=== PATIENT | female | born 1975 | race Caucasian/White ===

== ENCOUNTER 2025-01-01 14:01 | Emergency (ER) | payer MEDICAID, SELFPAY ==
--- OUTSIDE RECORDS SUMMARY | 2024-10-22 08:00 | XMS_ITS ---
Author Organization [facility] Address [address] [place] [address] Care Team Providers Care It Security Consulting Director Name Role Phone Claudette Gaffney Primary Care Provider REASON FOR VISIT CA due to error Social History Sex Assigned At : Social History Observation Description Sex Assigned At Female Encounters Encounter Location Date Provider Diagnosis [address] [address] 10/22/2024 Claudette Gaffney Plan Of Treatment No Information Progress Notes * Chilo LAMASRudyOB: 6 (49 yo F)Acc No.[id number]:10/22/2024 UNLOCKED PROGRESS NOTE Patient: Ashlee MACHADO Provider: LUCIE Loredo :1975 A ge:49 Y S ex:Female Date:10/22/2024 Phone: [facility] Subjective: * Chief Complaints: * 1 . CA due to error. * Medical History: Objective: * Vitals: Assessment: Plan: * Treatment: * * Electronic signature of Suzette Gaffney on 01/01/2025 at 03:09 PM CDT Sign off status: Pending * Provider: LUCIE Loredo Date: 10/22/2024 Generated for Printi ng/Faxing/eTransmitting on: 0 01/01/2025 03:09 PM CDT
--- OUTSIDE RECORDS SUMMARY | 2024-12-11 04:00 | XMS_ITS ---
Author Organization [facility] Address [address] [place] [address] Care Team Providers Care Weather Analyst Name Role Phone Claudette Gafnfey Primary Care Provider Dao Cabezas Unavailable [phone] REASON FOR VISIT New patient Social History Sex Assigned At : Social History Observation Description Sex Assigned At Female Encounters Encounter Location Date Provider Diagnosis [address] [address] 12/11/2024 Dao Cabezas Plan Of Treatment No Information Progress Notes * Nichole LAMASOB: 6 (49 yo F)Acc No.[id number]:12/11/2024 UNLOCKED PROGRESS NOTE Progress Notes Patient: Ashlee MACHADO Provider: Susie Cabezas :1975 A ge:49 Y S ex:Female Date:12/11/2024 Phone: [facility] Pcp:Claudette Gaffney Subjective: * Chief Complaints: * 1 . New patient. * Medical History: Objective: * Vitals: Assessment: Plan: * Treatment: * * Electronic signature of Lyssa Cabezas , [id number] on 01/01/2025 at 03:09 PM CDT Sign off status: Pending * Provider: Susie Cabezas Date: 12/11/2024 Generated for Betsyi ng/Faxing/eTransmitting on: 01/01/2025 03:09 PM CDT
--- NOTE | ~2025-01-01 | XR_ITS ---
EXAMINATION: XR shoulder LT min 2V DATE: 01/01/2025 16:23 INDICATION: Left shoulder pain TECHNIQUE: 4 views of the left shoulder were obtained. COMPARISON: None FINDINGS: Normal alignment. No fracture.Mild left glenohumeral and acromioclavicular osteoarthritis. Normal subacromial spurs. Visualized portion of the lungs are clear. Soft tissues are unremarkable. IMPRESSION: Mild left glenohumeral and acromioclavicular osteoarthritis. No acute osseous abnormality. Reviewed, dictated and finalized at location A. IMPRESSION: Mild left glenohumeral and acromioclavicular osteoarthritis. No acute osseous a bnormality.
--- NOTE | ~2025-01-01 | XR_ITS ---
Clinical history:Shoulder/arm pain. Unknown trauma. EXAM:X-ray humerus left TECHNIQUE:2 images of the left humerus were obtained. Comparisons:None available FINDINGS: No displaced fracture identified in the left humerus. If concern for a bony abnormality about the left elbow or left shoulder, dedicated x-rays of the left shoulder and/or left elbow is recommended. No sclerotic or destructive bone lesion identified in the visualized left humerus. IMPRESSION: 1. No displaced fracture identified in the left humerus. If symptoms persist or worsen, consider a short-term follow-up study or additional imaging for further assessment. Findings as above. Reviewed, dictated and finalized at location Q. IMPRESSION: 1. No displaced fracture identified in the left humerus. If symptoms persist or worsen, consider a short-term follow-up study or additio nal imaging for further assessment. Findings as above.
[2025-01-01 13:58] VITALS: BP 166/97; PULSE 61; RESP 12; TEMP 36.7; O2SAT 100
[2025-01-01 14:12] VITALS: BP 166/97; PULSE 56; RESP 12; TEMP 36.7; O2SAT 100
--- NOTE | 2025-01-01 14:38 | ED.FEMALEGU ---
HPI - Female Genitourinary General Chief complaint: Vaginal Bleeding Stated complaint: vag bleed Time Seen by Provider: 01/01/25 14:25 Source: patient Mode of arrival: EMS Limitations: no limitations History of Present Illness HPI Narrative: This is a 49-year-old female with history of paraplegia due to postop complication from a knee surgery (?) And subsequent cervical spine infection who presents to the ED for vaginal bleeding. Patient states that she started her period today for the 1st time in 5 months and had a much heavier for vaginal bleeding she normally does. She denies lightheadedness, dizziness, nausea, vomiting, abdominal pain. She states that she is being treated for UTI right now and has a few days left of antibiotics. She does have an indwelling Ng in. Related Data Allergies Allergy/AdvReac Type Severity Reaction Status Date / Time Penicillins Allergy Mild Hives Verified 01/01/25 14:13 Review of Systems Review of Systems: Gen.: Denies fevers or chills Eyes: Denies eye pain or visual change ENT: Denies congestion Respiratory: Denies shortness of breath or cough CV: Denies chest pain or palpitations GI: Denies abdominal pain nausea, emesis or diarrhea as per HPI Musculoskeletal: Denies back pain or muscle pain Neuro: Denies numbness, tingling, weakness or focal weakness Skin: Denies rash Except as documented, all other systems reviewed and negative Exam Narrative: APPEARANCE: No acute distress, nontoxic, resting in bed EYES: EOMI HEENT: Normocephalic, atraumatic, OMM RESPIRATORY: No respiratory distress Clear to auscultation bilaterally with no rhonchi wheezing or rales. CARDIOVASCULAR: Regular rate and rhythm without murmurs rubs or gallops. ABDOMINAL: Soft, nontender, nondistended, no rebound or guarding. : Indwelling Ng catheter without surrounding drainage MUSCULOSKELETAl: Paraplegic, 3/5 strength to the left upper extremity. No clubbing, cyanosis or edema. NEURO: Awake and alert. Following commands, speech normal. Paraplegia SKIN:: Warm, dry. No rashes lesions or abrasions PSYCHIATRIC: Normal affect/mood, Course Vital Signs Vital signs: Vital Signs Temperature 98.0 F 01/01/25 13:58 Pulse Rate 61 01/01/25 13:58 Respiratory Rate 12 01/01/25 13:58 Blood Pressure 166/97 H 01/01/25 13:58 Pulse Oximetry 100 01/01/25 13:58 Oxygen Delivery Room Air 01/01/25 13:58 Temperature 98.0 F 01/01/25 14:12 Pulse Rate 66 01/01/25 18:42 Respiratory Rate 14 01/01/25 18:42 Blood Pressure 140/78 01/01/25 18:42 Pulse Oximetry 100 01/01/25 18:42 Oxygen Delivery Room Air 01/01/25 13:58 MDM - Female Genitourinary MDM Narrative Medical decision making narrative: 49-year-old female presenting for vaginal bleeding. On initial evaluation, patient was in no acute distress, afebrile, hemodynamically stable. She had her stable paraplegia. Abdomen was soft nontender. UA obtained which showed no evidence of UTI. She had a mild anemia at 10.1. Remaining labs without significant abnormalities. Patient did complain of shoulder pain that she thinks may have been related to 1 of the transfers from bed to bed in the past few months. 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 Suspect the patient's vaginal bleeding is due to her secondary amenorrhea due to her stress inducing past few months from her postop complications. Believe she is now having a subsequent heavier menses due to this. She is otherwise asymptomatic at this time. She was advised to follow-up with her account executive metalworking in the next week for re-evaluation. Patient was agreeable to this plan. Given strict return precautions. Differential Diagnosis Differential diagnosis: Likely other (Menstrual period, dysmenorrhea, menorrhagia, UTI) Medical Records Attestation: I reviewed the patient's medical records. Lab Data Attestation: I reviewed the patient's lab results. 01/01/25 14:36 01/01/25 14:36 Labs: Lab Results 01/01/25 01/01/25 Range/Units 14:36 15:41 WBC 4.5 (4.5-10.0) K/mm3 RBC 3.52 L (4.2-5.4) M/mm3 Hgb 10.1 L (12.0-15.0) g/dL Hct 31.2 L (37.0-47.0) % MCV 88.6 (80-100) fl MCH 28.7 (26-34) pg MCHC 32.4 (32-36) g/dl RDW 13.6 (11.5-14.5) % Plt Count 246 (150-375) k/mm3 MPV 8.0 (7.4-10.4) fl Immature Gran % (Auto) 0.2 (0-0.5) % Neut % (Auto) 52.2 (45.5-73.1) % Lymph % (Auto) 38.3 (18.3-44.2) % [place] % (Auto) 5.3 (2.6-8.5) % Eos % (Auto) 3.1 (0-4.4) % Baso % (Auto) 0.9 (0.2-1.2) % Lymph # (Auto) 1.73 (0.9-3.2) K/mm3 [place] # (Auto) 0.2 (0.1-0.6) K/mm3 Eos # (Auto) 0.1 (0-0.3) K/mm3 Baso # (Auto) 0.0 (0.0-0.1) K/mm3 Abs Immat Gran (auto) 0.01 (0.00-0.031) K/mm3 Absolute Neuts (auto) 2.4 (1.3-6.7) K/mm3 Absolute Nucleated RBC 0.000 (0.0-0.012) K/mm3 Nucleated RBC % 0.0 (0.0-0.2) % Sodium 136 L (137-145) mmol/L Potassium 4.2 (3.4-5.0) mmol/L Chloride 104 (98-107) mmol/L Carbon Dioxide 25 (22-30) mmol/L Anion Gap 7 (4-12) mmol/L BUN 19 H (7-17) mg/dL Creatinine 0.39 L (0.7-1.0) mg/dL Estim Creat Clear Calc 165 ml/min Estimated GFR > 60 (59 - ) Glucose 90 (65-110) mg/dL Calcium 9.1 (8.4-10.2) mg/dL Total Bilirubin 0.4 (0.2-1.3) mg/dL AST 25 (14-36) U/L ALT 12 (6-35) U/L Alkaline Phosphatase 97 (38-126) U/L Total Protein 8.0 (6.3-8.2) g/dL Albumin 3.8 (3.5-5.1) g/dL Urine Color Yellow (Yellow) Urine Appearance Clear (Clear) Urine pH 6.5 (5.0-9.0) Ur Specific [place] 1.006 (1.001-1.035) Urine Protein Negative (Negative) mg/dL Urine Glucose (UA) Negative (Negative) mg/dL Urine Ketones Negative (Negative) mg/dL Ur Blood (Man) 1+ H (Negative) Urine Nitrate Negative (Negative) Urine Bilirubin Negative (Negative) Urine Urobilinogen 0.2 (<2.0) mg/dL Leukocyte Esterase Rfl 2+ H (Negative) ABBY/UL Urine RBC 0-2 (0-2) /hpf Urine WBC 11-20 H (0-3) /hpf Ur Squamous Epith Cells None seen (Few) /hpf Urine Bacteria None seen /hpf Urine Casts 0-2 Urine Test Negative Discharge Plan Discharge Clinical Impression: Menorrhagia with irregular cycle Patient Disposition: Home Condition: Stable Instructions: Antibiotic Form, Menorrhagia (ED) Additional Instructions: Your blood work was reassuring your hemoglobin is little low but not low enough to require transfusion. I suspect that your increased vaginal bleeding today is due to the fact he had not had a period in several months. Continue to monitor the MModal has never needed to be changed. Follow-up with your PCP in the next week for re-evaluation. Return to ED for any new or worsening symptoms. Patient Language: Danish Follow-up/Referrals: Kenny Pan MD [Physician, LANDSCAPE AND [employer]ARDWORK LABORER] UNKNOWN,DOCTOR [Primary Care Provider]
[2025-01-01 14:42] LABS: Hematocrit 31.2 % (37.0-47.0); Hemoglobin 10.1 g/dL (12.0-15.0); Immature Granulocyte Percent A 0.2 % (0-0.5); Lymphocytes Absolute Auto 1.73 K/mm3 (0.9-3.2); Mean Corpuscular HGB Conc 32.4 g/dl (32-36); Mean Corpuscular Hemoglobin 28.7 pg (26-34); Mean Corpuscular Volume 88.6 fl (80-100); Nucleated Red Blood Cells Absolute Auto 0.000 K/mm3 (0.0-0.012); Nucleated Red Blood Cells Perc 0.0 % (0.0-0.2); Platelet Count Result 246 k/mm3 (150-375); Red Blood Count 3.52 M/mm3 (4.2-5.4); White Blood Count 4.5 K/mm3 (4.5-10.0)
[2025-01-01 14:52] LABS: Alanine Aminotransferase 12 U/L (6-35); Albumin Level 3.8 g/dL (3.5-5.1); Alkaline Phosphatase 97 U/L (38-126); Anion Gap 7 mmol/L (4-12); Aspartate Amino Transferase 25 U/L (14-36); Bilirubin,Total 0.4 mg/dL (0.2-1.3); Blood Urea Nitrogen 19 mg/dL (7-17); Calcium 9.1 mg/dL (8.4-10.2); Carbon Dioxide 25 mmol/L (22-30); Chloride 104 mmol/L (98-107); Estimated CRCL calculation 165 ml/min; Estimated Glomerular Filt Rate > 60; Glucose 90 mg/dL (65-110); Potassium 4.2 mmol/L (3.4-5.0); Sodium 136 mmol/L (137-145); Total Protein 8.0 g/dL (6.3-8.2)
[2025-01-01] MEDS: oxyCODONE HCL (*CRX) 5 MG TAB IR PO (14:53)
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
--- OUTSIDE RECORDS SUMMARY | 2025-01-01 15:10 | XMS_ITS | Clinical Summary ---
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 Medications metFORMIN (GLUCOPHAGE) 1,000 mg tablet Take 1,000 mg by mouth 2 times daily with meals. Active aspirin (ECOTRIN EC) 81 mg Tablet, Delayed Release (E.C.) Take 81 mg by mouth daily. Active diazePAM (VALIUM) 5 mg tabletIndications :Discitis of cervical region Take 1 Tablet (5 mg) by mouth 1 time daily as needed for Discomfort or Other (See Comment) (Muscle Spasm). 5 Active DULoxetine (CYMBALTA) 30 mg Capsule, Delayed Release(E.C.) Take 1 Capsule (30 mg) by mouth daily. 5 Active midodrine (PROAMATINE) 10 mg Tablet Take 1 Tablet (10 mg) by mouth every 8 hours. 5 Active oxyCODONE (ROXICODONE) 15 mg tabletIndications :Discitis of cervical region Take 1 Tablet (15 mg) by mouth every 4 hours as needed for Pain. Max Daily Amount: 90 mg 5 Active pregabalin (LYRICA) 25 mg Capsule Take 1 Capsule (25 mg) by mouth every 12 hours. 5 Active gabapentin (NEURONTIN) 300 mg capsule Take 2 Capsules (600 mg) by mouth every 8 hours. Active cyclobenzaprine (FLEXERIL) 10 mg tablet Take 1 Tablet (10 mg) by mouth 3 times daily. Active sodium chloride 7 % Solution for Nebulization Take 2.5 mL by inhalation 4 times daily. Active ipratropium-albut Frandy (DUONEB) 0.5 mg-3 mg(2.5 mg base)/3 mL Solution for Nebulization Take 3 mL by inhalation every 4 hours as needed for Shortness of Breath or Wheezing. 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 Neurogenic bladder 08/09/2024 Allergy to amoxicillin 08/09/2024 Quadriparesis 08/08/2024 Streptococcal bacteremia 08/08/2024 Streptococcal arthritis of left knee 08/08/2024 Type 2 diabetes mellitus wit h foot ulcer, without long-term current use of insulin 08/08/2024 TASIA (acute kidney injury) 08/08/2024 Encounters Date Type Department Care Team Description 12/04/2024 External Device Data [facility] Provider, Abstract 12/04/2024 External Device Data [facility] Provider, Abstract 11/30/2024 [facility] Neurosurgery - [facility] [address] [place] [address] Bigg Hardy MD Needs Appointment 11/21/2024 External Device Data [facility] Provider, Abstract 11/20/2024 External Device Data [facility] Provider, Abstract 11/07/2024 External Device Data [facility] Provider, Abstract 11/06/2024 External Device Data [facility] Provider, Abstract 10/17/2024 External Device Data [facility] Provider, Abstract 10/17/2024 External Device Data [facility] Provider, Abstract 10/17/2024 External Device Data [facility] Provider, Abstract 10/17/2024 External Device Data [facility] Provider, Abstract 10/16/2024 External Device Data [facility] Provider, Abstract from Last 3 Months Social History Tobacco Use Types Packs/Day Years Used Date Smoking Tobacco: Unknown Tobacco Cessation:Counseling Given: Not Answered Feeling Safe Answer Date Recorded Are you in a relationship wi th someone who hurts you emotionally and/or physically? No 08/10/2024 Food Insecurity Answer Date Recorded Patient needs follow up regardin 08/08/2024 Transportation Needs Answer Date Record ed Patient needs follow up regardin 08/08/2024 Utility Needs Answer Date Recorded Patient needs follow up regardin 08/08/2024 Comments Unknown Sex and Gender Information Value Date Recorded Sex Assigned at Not on file Legal Sex Female 11:11 PM CDT Gender Identity Not on file Sexual Orientation Not on file Last Filed Vital Signs Vital Sign Reading Time Taken Comments Blood Pressure 98/63 08/23/2024 1:10 PM CDT Pulse 78 08/23/2024 2:06 PM CDT Temperature 36.5 C (97.7 F) 08/23/2024 1:10 PM CDT Respiratory Rate 18 08/23/2024 2:06 PM CDT Oxygen Saturation 97% 08/23/2024 1:10 PM CDT Inhaled Oxygen Concentration - - Weight 102.2 kg (225 lb 6.4 oz) 08/14/2024 5:00 AM CDT Height 170.2 cm (5' 7) 08/08/2024 3:59 PM CDT Body Mass Index 35.3 08/08/2024 3:59 PM CDT Plan of Treatment Upcoming Encounters Date Type Department Care Team (Late st Contact Info) Description 02/13/2025 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 Office Visit [facility] Neurosurgery - [facility] [place] [address] [place] [address] Bigg Hardy MD [address] [facility] [address] [place] [address] Health Maintenance Due Date Last Done Comments DIABETES ANNUAL FOOT EXAM 01/14/1994 DIABETES ANNUAL RETINAL EXAM 01/14/1994 DIABETES MICROALBUMIN ANNUAL SCREEN 01/14/1994 LDL CHOLESTEROL ANNUAL 01/14/1994 HEPATITIS B VACCINES (1 of 3 - 19+ 3-dose series) 01/02 HPV/Cotest (21-29) 01/14/1997 CERVICAL CANCER SCREENING 01/14/2006 HPV/Cotest (30-65) 01/14/2006 PAP SMEAR 01/14/2006 BREAST CANCER SCREENING 2016 DIABETES HBA1C Q 6 MONTHS 06/13/2016 12/15/2015 COLORECTAL SCREENING 01/14/2021 Colorectal Cancer Screening 01/14/2021 FIT-DNA Q 3 years 01/14/2021 FIT/FOBT Q 1 year 01/14/2021 Flex Sig/CT Colonography Q 5 years 01/14/2021 INFLUENZA VACCINE (#1) 2024 DTAP/TDAP/TD VACCINES (2 - Td or Tdap) 08/17/2025 Medical Devices Implanted Type Area Product Development Device Identifier Shelf Expiration Date Model / Serial / Lot Hemostatic Surgicel 6x9in 1944 [id number] Implanted:Qty : 1 on 08/10/2024 by Bigg Hardy MD at [facility] Hemostatic N/A: Spine Cervical Posterior [employer] [id number] 10/01/20281945 / / [id number] Hemostatic Surgifoam [id number] Implanted:Qty : 1 on 08/10/2024 by Bigg Hardy MD at [facility] Hemostatic N/A: Spine Cervical Posterior [employer] [id number] 06/04/20281973 / / [id number] Insurance [place]ICAID [place] Advance Directives For more information, please contact: [phone] * Full Code (Latest Code Status on File) Date Activated Date Inactivated Comments 08/08/2024 5:38 PM 08/23/2024 9:35 PM
--- OUTSIDE RECORDS SUMMARY | 2025-01-01 15:10 | XMS_ITS | Clinical Summary ---
Author Organization [facility] Virtual Address [address] [place] [address] Phone Care Team Providers Care Flame Brazing Machine Operator Name Role Phone Dao Cabezas MD Primary Care Provider [phone] Farida Brand APRN, RECORDS TECH Unavailable Allergies Active Allergy Reactions Criticality Noted Date Comments Amoxicillin Hives 08/24/2024 Penicillins Hives 08/24/2024 Medications acetaminophen (TYLENOL) 325 MG TabletIndications: Fever,Pain Take 2 Tablets by mouth every 4 hours as needed for Mild or more severe pain, Moderate or more severe pain or Severe pain. Indications: Fever, Pain 025 Active calcium carbonate (TUMS) 500 MG Chewable TabletIndications: Heartburn Take 2 Tablets by mouth every 8 hours as needed for Heartburn or Indigestion. Indications: Heartburn 025 Active Lidocaine 4 % PatchIndications:P ain 2 Patches by Transdermal route every 24 hours. Indications: Pain 025 Active menthol-methyl salicylate (MUSCLE RUB) 10-15 % CreamIndications:P ain Apply 2 g as needed for Pain. Application Site: bilateral shoulders Indications: Pain 025 Active bisacodyl 10 MG SuppositoryIndicat ions:Bowel Evacuation 1 Suppository by Rectal route daily. Indications: Evacuation of Material from the Bowel 30 Suppository Active polyethylene glycol (GLYCOLAX, MIRALAX) 17 g PackIndications:Co nstipation Take 1 Packet by mouth daily. Dissolve in 4-8 oz of liquid. Indications: Constipation Active oxyCODONE (ROXICODONE) 5 MG TabletIndications: Acute Pain Take 1 Tablet by mouth 2 times daily as needed for Severe pain. Indications: Acute Pain 12 Tablet Active Additional Information Patient not taking.Reason: defer to PCP to prescribe if appropriate, Reported on 10/26/2024 enoxaparin (LOVENOX) 40 MG/0.4ML Solution Prefilled SyringeIndications :Prophylaxis of Venous Thromboembolism 0.4 mL by Subcutaneous route every 24 hours. Indications: Prevention of Unwanted Clot in Veins 12 mL Active naloxegol (MOVANTIK) 12.5 MG TabletIndications: Opioid-Induced Constipation Take 1 Tablet by mouth every morning (before breakfast). Indications: Opioid-Induced Constipation 30 Tablet Active meloxicam (MOBIC) 15 MG TabletIndications: Osteoarthritis Take 1 Tablet by mouth daily. Indications: Joint Damage causing Pain and Loss of Function 30 Tablet Active naloxone HCl (Narcan) 4 MG/0.1ML LiquidIndications: Opioid Overdose 1 Kincaid by Nasal route as needed for Opioid Reversal. Administer in one nostril for symptoms of overdose (severe sleepiness, breathing problems, not responsive). Call 911. May repeat 1 spray in alternate nostril in 2-3 minutes if needed. Indications: Opioid Overdose 2 Each Active gabapentin (NEURONTIN) 400 MG CapsuleIndications :Neuropathic Pain Take 2 Capsules by mouth 3 times daily. Indications: Neuropathic Pain 180 Capsule 2 Active oxybutynin (DITROPAN-XL) 10 MG TABLET SR 24 HRIndications:Urin sridhar Incontinence Take 1 Tablet by mouth daily. Indications: Urinary Incontinence 30 Tablet Active tiZANidine (ZANAFLEX) 4 MG TabletIndications: Muscle Spasticity,Musculo skeletal Pain Take 1 Tablet by mouth 3 times daily. Indications: Muscle Spasticity, Musculoskeletal Pain 30 Tablet Active cefUROXime (CEFTIN) 500 MG Tablet Take 500 mg by mouth every 12 hours. Active baclofen (LIORESAL) 5 MG TabletIndications: Muscle Spasticity Take 1 Tablet by mouth 3 times daily for 60 days. Indications: Muscle Spasticity 180 Tablet 025 2024 fluconazole (DIFLUCAN) 200 MG Tablet Take 1 Tablet by mouth daily for 15 days. 15 Tablet 025 2024 Active Problems Problem Noted Date Diagnosed Date Acute osteomyelitis of spine 09/22/2024 Acute osteomyelitis of cervical spine 09/21/2024 Anemia 09/10/2024 Assessment & Plan (09/12/2024 5:16 PM CDT): Monitor Assessment & Plan (09/11/2024 8:26 PM CDT): Transfuse another unit today. Assessment & Plan (09/10/2024 4:11 PM CDT): Has been ongoing related to surgery, infection and frequent phlebotomy but lower today; no bleeding diathesis reported, tranfuse 1 unit and repeat TASIA (acute kidney injury) 09/06/2024 Assessment & Plan (09/12/2024 5:16 PM CDT): resolved Assessment & Plan (09/11/2024 8:26 PM CDT): Improving Assessment & Plan (09/10/2024 4:09 PM CDT): Quite a bit worse again today; volume status doesn't look terrible, but I suspect that her post-obstructive diuresis led her to become hypovolemic which is supported by her decreased urine output. Flush lezama to make sure it is draining appropriately and start IV hydration Assessment & Plan (09/09/2024 2:17 PM CDT): As long as labs good in the morning will attempt voiding trial Assessment & Plan (09/08/2024 1:17 PM CDT): Obstructive in nature d/t lezama being kinked, resolved and urine output much more reasonable; voiding trial in the next day or two Assessment & Plan (09/07/2024 2:09 PM CDT): Obstructive in nature d/t lezama being kinked, resolved today; still making very high urine output and need to monitor to make sure she does not over diurese. Assessment & Plan (09/06/2024 8:24 PM CDT): Lezama had been inadvertently kinked with large volume diuresis since it was released yesterday evening; give back a little fluid now and repeat labs in AM Insomnia 08/31/2024 Assessment & Plan (09/03/2024 3:55 PM CDT): Doing well with remeron, monitor Assessment & Plan (09/02/2024 2:32 PM CDT): Add remeron Assessment & Plan (09/01/2024 2:43 PM CDT): Add remeron Assessment & Plan (08/31/2024 1:34 PM CDT): Add remeron Quadriparesis 08/23/2024 Assessment & Plan (10/30/2024 8:32 AM CDT): - Pt notes slight improvements with movements - Has PT/OT Orders: gabapentin (NEURONTIN) 400 MG Capsule; Take 2 Capsules by mouth 3 times daily. Indications: Neuropathic Pain tiZANidine (ZANAFLEX) 4 MG Tablet; Take 1 Tablet by mouth 3 times daily. Indications: Muscle Spasticity, Musculoskeletal Pain Assessment & Plan (09/12/2024 5:16 PM CDT): Slowly getting some return of sensory and motor function with improvement movement in arms. Still not a lot of purposeful movement in legs but sensation is better Assessment & Plan (09/11/2024 8:26 PM CDT): Slowly getting some return of sensory and motor function with improvement movement in arms. Still not a lot of purposeful movement in legs but sensation is better Assessment & Plan (09/10/2024 4:09 PM CDT): Slowly getting some return of sensory and motor function with improvement movement in arms. Still not a lot of purposeful movement in legs but sensation is better Assessment & Plan (09/09/2024 2:17 PM CDT): Slowly getting some return of sensory and motor function but remains limited Assessment & Plan (09/08/2024 1:17 PM CDT): Progress has been slow but steady and she is starting to be able to move her left arm a bit more Assessment & Plan (09/07/2024 2:09 PM CDT): Sensation and motor function gradually improving Assessment & Plan (09/06/2024 6:13 PM CDT): Sensation and motor function gradually improving Assessment & Plan (09/05/2024 9:26 AM CDT): Sensation and motor function gradually improving Assessment & Plan (09/04/2024 2:57 PM CDT): Continue therapies as able; increasing movement especially in right arm Assessment & Plan (09/04/2024 9:55 AM CDT): Continue therapies as able; increasing movement especially in right arm Assessment & Plan (09/03/2024 3:55 PM CDT): Continue therapies as able; increasing movement especially in right arm Assessment & Plan (09/02/2024 2:32 PM CDT): Continue therapies as able Assessment & Plan (09/01/2024 2:43 PM CDT): Continue therapies as able Assessment & Plan (08/31/2024 1:34 PM CDT): Continue therapies as able Assessment & Plan (08/30/2024 12:55 PM CDT): Slight improvement in motor and sensory function, continue to monitor Assessment & Plan (08/29/2024 1:11 PM CDT): Sensation and motor status functioning slightly improved but having a lot more pain, increase gabapentin, add tizanidine, lidocaine patches for shoulders. Has been using both oxy and dilaudid alternating, for now will just go to dilaudid at a higher frequency as both are short acting agents Assessment & Plan (08/28/2024 12:21 PM CDT): Continue therapies as able, getting a little more activity in extremities gradually; having more neuropathic pain as nerves seem to be waking up a bit, increase gabapentin Assessment & Plan (08/27/2024 11:44 PM CDT): Continue therapies as able has had some signs of improvement noted in recent days Assessment & Plan (08/26/2024 11:58 PM CDT): Continue therapies as able has had some signs of improvement noted in recent days Assessment & Plan (08/25/2024 11:47 AM CDT): Continue therapies as able has had some signs of improvement noted in recent days Assessment & Plan (08/24/2024 1:58 PM CDT): Some intermittent myoclonic jerks noted in legs but no purposeful movements, monitor with therapies as able Osteomyelitis 08/23/2024 Assessment & Plan (08/28/2024 12:21 PM CDT): Of left heel, antibiotics as above; f/u with podiatry Assessment & Plan (08/27/2024 11:45 PM CDT): Of left heel, antibiotics as above; f/u with podiatry Left arm edema- check u/s Assessment & Plan (08/26/2024 11:58 PM CDT): Of left heel, antibiotics as above; f/u with podiatry Assessment & Plan (08/25/2024 11:47 AM CDT): Of left heel, antibiotics as above; f/u with podiatry Assessment & Plan (08/24/2024 1:58 PM CDT): Of left heel, antibiotics as above; f/u with podiatry Diabetes 08/23/2024 Assessment & Plan (09/12/2024 5:16 PM CDT): Recent Labs Units 09/12/24 0521 09/11/24 0648 09/10/24 1716 09/10/24 0612 GLUCOSEPOCT mg/dL 110* 211* 150* 140* controlled Assessment & Plan (09/11/2024 8:26 PM CDT): Recent Labs Units 09/11/24 0648 09/10/24 1716 09/10/24 0612 09/09/24 1700 09/09/24 1122 09/09/24 0729 GLUCOSEPOCT mg/dL 211* 150* 140* 191* 199* 125* controlled Assessment & Plan (09/10/2024 4:09 PM CDT): Recent Labs Units 09/10/24 0612 09/09/24 1700 09/09/24 1122 09/09/24 0729 09/08/24 1715 09/07/24 1811 GLUCOSEPOCT mg/dL 140* 191* 199* 125* 153* 158* controlled Assessment & Plan (09/09/2024 2:17 PM CDT): Recent Labs Units 09/09/24 1122 09/09/24 0729 09/08/24 1715 09/07/24 1811 09/06/24 1720 GLUCOSEPOCT mg/dL 199* 125* 153* 158* 213* Generally acceptable Assessment & Plan (09/08/2024 1:17 PM CDT): Recent Labs Units 09/07/24 1811 09/06/24 1720 09/06/24 0543 09/05/24 1637 GLUCOSEPOCT mg/dL 158* 213* 119* 146* Intermittently high but mostly well controlled, monitor Assessment & Plan (09/07/2024 2:09 PM CDT): Recent Labs Units 09/06/24 1720 09/06/24 0543 09/05/24 1637 09/05/24 0601 09/04/24 1639 GLUCOSEPOCT mg/dL 213* 119* 146* 132* 176* 1 slightly elevated reading this evening but overall has been controlled, monitor pattern Assessment & Plan (09/06/2024 6:13 PM CDT): Recent Labs Units 09/06/24 1720 09/06/24 0543 09/05/24 1637 09/05/24 0601 09/04/24 1639 09/04/24 1203 GLUCOSEPOCT mg/dL 213* 119* 146* 132* 176* 192* 1 slightly elevated reading this evening but overall has been controlled, monitor pattern Assessment & Plan (09/05/2024 9:26 AM CDT): Recent Labs Units 09/05/24 0601 09/04/24 1639 09/04/24 1203 09/04/24 0543 09/03/24 1751 09/03/24 0512 GLUCOSEPOCT mg/dL 132* 176* 192* 129* 171* 117* Well controlled, continue current insulin regimen Assessment & Plan (09/04/2024 2:57 PM CDT): Recent Labs Units 09/04/24 1203 09/04/24 0543 09/03/24 1751 09/03/24 0512 09/02/24 1649 09/01/24 1751 GLUCOSEPOCT mg/dL 192* 129* 171* 117* 127* 179* Well controlled, continue current insulin regimen Assessment & Plan (09/04/2024 9:55 AM CDT): Recent Labs Units 09/04/24 0543 09/03/24 1751 09/03/24 0512 09/02/24 1649 09/01/24 1751 09/01/24 1134 GLUCOSEPOCT mg/dL 129* 171* 117* 127* 179* 196* Well controlled, continue current insulin regimen Assessment & Plan (09/03/2024 3:55 PM CDT): Recent Labs Units 09/03/24 0512 09/02/24 1649 09/01/24 1751 09/01/24 1134 08/31/24 1634 GLUCOSEPOCT mg/dL 117* 127* 179* 196* 206* Well controlled Assessment & Plan (09/02/2024 2:32 PM CDT): Recent Labs Units 09/01/24 1751 09/01/24 1134 08/31/24 1634 08/31/24 1204 08/31/24 0544 08/30/24 202 GLUCOSEPOCT mg/dL 179* 196* 206* 193* 116* 180* Well controlled Assessment & Plan (09/01/2024 2:43 PM CDT): Recent Labs Units 09/01/24 1134 08/31/24 1634 08/31/24 1204 08/31/24 0544 08/30/24202308/30/24 1716 GLUCOSEPOCT mg/dL 196* 206* 193* 116* 180* 149* Well controlled Assessment & Plan (08/31/2024 1:34 PM CDT): Recent Labs Units 08/31/24 1204 08/31/24 0544 08/30/24 20208/30/24 1716 08/30/24 1156 08/30/24 0520 GLUCOSEPOCT mg/dL 193* 116* 180* 149* 126* 128* Well controlled Assessment & Plan (08/30/2024 12:55 PM CDT): Recent Labs Units 08/30/24 1156 08/30/24 0520 08/29/24 2006 08/29/24 1637 08/29/24 1238 08/29/24 0457 GLUCOSEPOCT mg/dL 126* 128* 172* 140* 107* 115* Remains controlled Assessment & Plan (08/29/2024 1:11 PM CDT): Recent Labs Units 08/29/24 1238 08/29/24 0457 08/28/24 2004 08/28/24 1621 08/28/24 1158 08/28/24 0553 GLUCOSEPOCT mg/dL 107* 115* 154* 114* 95 114* Remains controlled Assessment & Plan (08/28/2024 12:21 PM CDT): Recent Labs Units 08/28/24 1158 08/28/24 0553 08/27/24201808/27/24 1648 08/27/24 1230 08/26/241954 GLUCOSEPOCT mg/dL 95 114* 139* 106* 102* 157* Well-controlled, monitor Assessment & Plan (08/27/2024 11:44 PM CDT): Recent Labs Units 08/27/24201808/27/24 1648 08/27/24 1230 08/26/24 1955 08/26/24 1627 08/26/24 1154 GLUCOSEPOCT mg/dL 139* 106* 102* 157* 108* 108* Well-controlled, monitor Assessment & Plan (08/26/2024 11:58 PM CDT): Recent Labs Units 08/26/24 19508/26/24 1627 08/26/24 1154 08/26/24 0646 08/25/24 2103 08/25/24 1644 GLUCOSEPOCT mg/dL 157* 108* 108* 113* 125* 140* Well-controlled, monitor Assessment & Plan (08/25/2024 11:47 AM CDT): Recent Labs Units 08/25/24 0702 08/24/24205708/24/24 1649 08/24/24 1128 08/23/24 2344 GLUCOSEPOCT mg/dL 120* 148* 123* 128* 141* Well-controlled, monitor Assessment & Plan (08/24/2024 1:58 PM CDT): Recent Labs Units 08/24/24 1128 08/23/24 2344 GLUCOSEPOCT mg/dL 128* 141* Well controlled so far on SSI only, monitor Septic arthritis of knee 08/23/2024 Assessment & Plan (08/28/2024 12:21 PM CDT): Continue antibiotics as above Assessment & Plan (08/27/2024 11:44 PM CDT): Continue antibiotics as above Assessment & Plan (08/26/2024 11:58 PM CDT): Continue antibiotics as above Assessment & Plan (08/25/2024 11:47 AM CDT): Continue antibiotics as above Assessment & Plan (08/24/2024 1:58 PM CDT): Rocephin/cefuroxime as above Vertebral osteomyelitis 08/23/2024 Assessment & Plan (09/12/2024 5:16 PM CDT): S/p decompressive laminectomy, continue antibiotics thru 6/18 as planned Assessment & Plan (09/11/2024 8:26 PM CDT): S/p decompressive laminectomy, continue antibiotics thru 6/18 as planned Assessment & Plan (09/10/2024 4:09 PM CDT): S/p decompressive laminectomy, continue antibiotics thru 6/18 as planned Assessment & Plan (09/09/2024 2:17 PM CDT): S/p decompressive laminectomy, continue antibiotics thru 6/18 as planned Assessment & Plan (09/08/2024 1:17 PM CDT): S/p decompressive laminectomy, continue antibiotics thru 6/18 as planned; continue gradual titration of pain meds Assessment & Plan (09/07/2024 2:09 PM CDT): S/p decompressive laminectomy, continue antibiotics thru 6/18 as planned; ok to start going back up a little on pain meds since mentation normalized with improved renal function but will go slowly Assessment & Plan (09/06/2024 8:24 PM CDT): S/p decompressive laminectomy, continue antibiotics thru 6/18 as planned;mentation significantly improved today after reducing medication doses last evening, monitor; Assessment & Plan (09/05/2024 2:33 PM CDT): S/p decompressive laminectomy, continue antibiotics thru 6/18 as planned; increase in oxycontin yesterday appears to have been too much as she is quite sleepy today, decrease dosage and monitor Assessment & Plan (09/04/2024 2:57 PM CDT): S/p decompressive laminectomy, continue antibiotics thru 6/18 as planned; still having a lot of pain, increase gabapentin; increase oxycontin, continue adjunctive cares with lidocaine, tizanidine Assessment & Plan (09/04/2024 9:55 AM CDT): S/p decompressive laminectomy, continue antibiotics thru 6/18 as planned; worsening left arm pain likely due to peripheral neuropathy, will titrate Gabapentin to 900 mg due to neuropathic pain Assessment & Plan (09/03/2024 3:55 PM CDT): S/p decompressive laminectomy, continue antibiotics thru 6/18 as planned; pain meds working ok, still having a lot of neuropathic symptom in left arm tho; continue gradual titration of neurontin Assessment & Plan (09/02/2024 2:32 PM CDT): S/p decompressive laminectomy, continue antibiotics thru 6/18 as planned; increase gabapentin slightly again Assessment & Plan (09/01/2024 2:43 PM CDT): S/p decompressive laminectomy, continue antibiotics thru 6/18 as planned; pain control improved with adjustments yesterday, continue to monitor Assessment & Plan (08/31/2024 1:34 PM CDT): S/p decompressive laminectomy, continue antibiotics thru 6/18 as planned; pain control improved with adjustments yesterday, continue to monitor Assessment & Plan (08/30/2024 12:55 PM CDT): S/p decompressive laminectomy, continue antibiotics thru 6/18 as planned; pain control a little improved but has been using a lot of short acting medication and need is ongoing, will start oxycontin to try to provide a little better baseline control. Discussed with patient that this is a transitional step and hopefully will allow future weaning of the dilaudid, rather than a computer terminal operator plan. Assessment & Plan (08/29/2024 1:11 PM CDT): S/p decompressive laminectomy, continue antibiotics thru 618 Assessment & Plan (08/28/2024 12:21 PM CDT): S/p decompressive laminectomy Assessment & Plan (08/27/2024 11:44 PM CDT): S/p decompressive laminectomy Assessment & Plan (08/26/2024 11:58 PM CDT): S/p decompressive laminectomy Assessment & Plan (08/25/2024 11:47 AM CDT): S/p decompressive laminectomy Assessment & Plan (08/24/2024 1:58 PM CDT): S/p decompressive laminectomy Resolved Problems Problem Noted Date Diagnosed Date Resolved Date Acute encephalopathy 09/06/2024 025 Assessment & Plan (09/07/2024 2:09 PM CDT): Resolved today Assessment & Plan (09/06/2024 8:24 PM CDT): Appears to be predominantly metabolic with any toxic component from meds ultimately being primarily due to worsening renal function. Encounters Date Type Department Care Team Description 12/17/2024 Home Care Visit [address] [address] Cecy Killian, OT OT - DISCHARGE SUMMARY 12/16/2024 Telephone [facility] [address] [place] [id number] Kelley Jeffries MD 12/12/2024 2:00 PM CDT Home Care Visit [address] [address] Arminda Nguyen RN SN - OASIS DISCHARGE 12/12/2024 12:30 PM CDT Home Care Visit [address] [address] Shanda Spicer, PT PT - DISCIPLINE DISCHARGE 12/10/2024 2:30 PM CDT Home Care Visit [address] [address] Naz Morse, CONCRETE TILE MACHINE OPERATOR PT - HOME VISIT 12/10/2024 11:00 AM CDT Home Care Visit [address] [address] Mandy Flynn OTA OT - DISCIPLINE DISCHARGE 12/10/2024 Travel 12/07/2024 1:30 PM CDT Home Care Visit [address] [address] Naz Morse, CONCRETE TILE MACHINE OPERATOR PT - HOME VISIT 12/05/2024 3:00 PM CDT Home Care Visit [address] [address] Hanna Govea, RN SN - WOUND VISIT 12/05/2024 2:30 PM CDT Home Care Visit [address] [address] Naz Morse, CONCRETE TILE MACHINE OPERATOR PT - HOME VISIT 12/05/2024 8:30 AM CDT Home Care Visit [address] [address] Mandy Flynn, ANKUSH OT - HOME VISIT 12/05/2024 Home Care Visit [address] [address] Mandy Flynn, ANKUSH CASE COMMUNICATION 12/05/2024 Travel 11/30/2024 10:30 AM CDT Home Care Visit [address] [address] Mandy Flynn, ANKUSH OT - HOME VISIT 11/30/2024 Travel 11/29/2024 12:30 PM CDT Home Care Visit [address] [address] Naz Morse, CONCRETE TILE MACHINE OPERATOR PT - HOME VISIT 11/29/2024 12:00 PM CDT Home Care Visit [address] [address] Arminda Nguyen RN SN - WOUND VISIT 11/27/2024 1:30 PM CDT Home Care Visit [address] [address] Mandy Flynn OTA OT - HOME VISIT 11/27/2024 1:30 PM CDT Home Care Visit [address] [address] Naz Morse, CONCRETE TILE MACHINE OPERATOR PT - HOME VISIT 11/27/2024 Home Care Visit [address] [address] Fabiola Samuel, PARK MANAGER TELEPHONE ENCOUNTER 11/27/2024 Travel 11/26/2024 2:00 PM CDT Home Care Visit [address] [address] Tatiana Conrad LPN SN - WOUND VISIT 11/23/2024 10:30 AM CDT Home Care Visit [address] [address] Mandy Flynn OTA OT - HOME VISIT 11/23/2024 Travel 11/22/2024 4:00 PM CDT Home Care Visit [address] [address] Arminda Nguyen, RN SN - WOUND VISIT 11/21/2024 10:00 AM CDT Home Care Visit [address] [address] Shanda Spicer, PT PT - REASSESSMENT 11/19/2024 3:00 PM CDT Home Care Visit [address] [address] Arminda Nguyen, RN SN - WOUND VISIT 11/19/2024 1:30 PM CDT Home Care Visit [address] [address] Naz Morse, CONCRETE TILE MACHINE OPERATOR PT - HOME VISIT 11/19/2024 11:15 AM CDT Home Care Visit [address] [address] Cecy Killian, OT OT - REASSESSMENT 11/16/2024 11:30 AM CDT Home Care Visit [address] [address] Mandy Flynn OTA OT - HOME VISIT 11/16/2024 Travel 11/15/2024 9:00 AM CDT Home Care Visit [address] [address] Arminda Nguyen, RN SN - WOUND VISIT 11/14/2024 1:30 PM CDT Home Care Visit [address] [address] Naz Morse, CONCRETE TILE MACHINE OPERATOR PT - HOME VISIT 11/12/2024 3:00 PM CDT Home Care Visit [address] [address] Arminda Nguyen, RN SN - WOUND VISIT 11/12/2024 1:00 PM CDT Home Care Visit [address] [address] Mandy Flynn OTA OT - HOME VISIT 11/12/2024 12:30 PM CDT Home Care Visit [address] [address] Naz Morse, CONCRETE TILE MACHINE OPERATOR PT - HOME VISIT 11/12/2024 Travel 11/09/2024 9:00 AM CDT Home Care Visit [address] [address] Mandy Flynn OTA OT - HOME VISIT 11/09/2024 Travel 11/08/2024 1:30 PM CDT Home Care Visit [address] [address] Tatiana Conrad LPN SN - WOUND VISIT 11/07/2024 12:00 PM CDT Home Care Visit [address] [address] Naz Morse CONCRETE TILE MACHINE OPERATOR PT - HOME VISIT 11/07/2024 11:00 AM CDT Home Care Visit [address] [address] Mandy Flynn OTA OT - HOME VISIT 11/07/2024 Travel 11/05/2024 3:00 PM CDT Home Care Visit [address] [address] rAminda Nguyen, RN SN - WOUND VISIT 11/05/2024 1:00 PM CDT Home Care Visit [address] [address] Naz Morse, CONCRETE TILE MACHINE OPERATOR PT - HOME VISIT 11/02/2024 3:00 PM CDT Home Care Visit [address] [address] Arminda Nguyen, RN SN - WOUND VISIT 11/02/2024 11:30 AM CDT Home Care Visit [address] [address] Mandy Flynn OTA OT - HOME VISIT 11/01/2024 1:15 PM CDT Home Care Visit [address] [address] Cecy Killian OT OT - REASSESSMENT 10/31/2024 1:00 PM CDT Home Care Visit [address] [address] Arminda Nguyen RN SN - WOUND VISIT 10/31/2024 12:00 PM CDT Home Care Visit [address] [address] Shanda Spicer PT PT - REASSESSMENT 10/31/2024 Home Care Visit [address] [address] Vianca Ortiz RN SN - WOUND/OSTOMY CONSULTATION 10/30/2024 9:00 AM CDT Home Care Visit [address] [address] Tatiana Conrad LPN SN - PRIORITY VISIT 10/30/2024 Nurse Triage [address] [address] Namoi Vann RN Wound 10/29/2024 2:30 PM CDT Home Care Visit [address] [address] Naz Morse CONCRETE TILE MACHINE OPERATOR PT - HOME VISIT 10/26/2024 1:00 PM CDT Telemedicine [facility] [address] [place] [id number] Farida Brand, SAP ABAP DEVELOPER, RECORDS TECH Muscle spasticity (Primary Dx); Quadriparesis (HCC); Neurogenic bladder Discharge Disposition: Discharged to home or Selfcare 10/26/[facility] [address] [place] [address] Farida Brand, SAP ABAP DEVELOPER, RECORDS TECH 10/25/2024 1:00 PM CDT Home Care Visit [address] [address] Naz Morse, CONCRETE TILE MACHINE OPERATOR PT - HOME VISIT 10/25/2024 12:30 PM CDT Home Care Visit [address] [address] Celeste Harry, ANKUSH OT - HOME VISIT 10/24/2024 1:00 PM CDT Home Care Visit [address] [address] Arminda Nguyen RN SN - WOUND VISIT 10/23/2024 2:30 PM CDT Home Care Visit [address] [address] Naz Morse, CONCRETE TILE MACHINE OPERATOR PT - HOME VISIT 10/23/2024 12:30 PM CDT Home Care Visit [address] [address] Celeste Harry, ANKSUH OT - HOME VISIT 10/23/2024 Home Care Visit [address] [address] Cecy Killian, OT CARE CONFERENCE 10/22/2024 2:30 PM CDT Home Care Visit [address] [address] Tatiana Conrad LPN SN - WOUND VISIT 10/19/2024 12:30 PM CDT Home Care Visit [address] [address] Naz Morse, CONCRETE TILE MACHINE OPERATOR PT - HOME VISIT 10/18/2024 Home Care Visit [address] [address] Fabiola Samuel, PARK MANAGER TELEPHONE ENCOUNTER 10/17/2024 12:30 PM CDT Home Care Visit [address] [address] Celeste Harry OTA OT - HOME VISIT 10/17/2024 12:00 PM CDT Home Care Visit [address] [address] Arminda Nguyen RN SN - [facility] INITIAL EVALUATION 10/17/2024 11:00 AM CDT Home Care Visit [address] [address] Fabiola Samuel, PARK MANAGER PARK MANAGER - INITIAL EVALUATION 10/17/2024 Home Care Visit [address] [address] Fabiola Samuel, PARK MANAGER TELEPHONE ENCOUNTER 10/16/2024 12:30 PM CDT Home Care Visit [address] [address] Shanda Spicer, PT PT - INITIAL EVALUATION 10/15/2024 10:30 AM CDT Home Care Visit [address] [address] Cecy Killian, OT OT - [facility] START OF CARE 10/15/2024 Home Care Visit [address] [address] Cecy Killian, OT TELEPHONE ENCOUNTER 10/15/2024 Plan of Care Documentation [address] [address] 10/09/2024 [facility] [address] [place] [address] 10/02/2024 [facility] [address] [place] [address] 09/21/2024 10:24 AM CDT - 10/11/2024 2:48 PM CDT Hospital Encounter [facility] Unit [address] [place] [address] Kelley Jeffries MD Acute osteomyelitis of cervical spine Discharge Disposition: Home Health Care Svc from Last 3 Months Immunizations Immunization Administration Dates Next Due Sars-cov-2 (Covid-19) Vaccine, Unspecified 09/24(Deferred: Other) Family History Medical History Relation Name Comments No Known Problems Father No Known Problems Mother Relation Name Status Comments Father Mother Social History Tobacco Use Types Packs/Day Years Used Date Smoking Tobacco: Former Cigarettes Smokeless Tobacco: Never Alcohol Use Standard Drinks/Week Comments Never 0 (1 standard drink = 0.6 oz pur e alcohol) Social Connection and Isolation Panel Answer Date Recorded In a typical week, how many times do you talk on the phone with family, friends, or neighbors? Once a week 08/25/19 25 How often do you get togethe r with friends or relatives? Once a week 08/24/2024 How often do you attend chur ch or protestant services? 1 to 4 times per year 08/24/2024 Do you belong to any clubs o r organizations such as samaritan groups, unions, fraternal or athletic groups, or school groups? No 08/24/2024 How often do you attend meet ings of the clubs or organizations you belong to? Never 08/24/2024 Are you , , di vorced, , never , or living with a partner? 08/24/2024 Housing Stability Vital Sign Answer Franck e Recorded In the last 12 months, was t here a time when you were not able to pay the mortgage or rent on time? No 08/24/2024 In the past 12 months, how m any times have you moved where you were living? 0 08/24/2024 At any time in the past 12 m [facility], were you homeless or living in a halfway (including now)? No 08/24/2024 Social Connection and Isolation Panel Answer Date Recorded In a typical week, how many times do you talk on the phone with family, friends, or neighbors? Once a week 09/22/19 25 How often do you get togethe r with friends or relatives? Once a week 09/21/2024 How often do you attend chur ch or protestant services? 1 to 4 times per year 09/21/2024 Do you belong to any clubs o r organizations such as samaritan groups, unions, fraternal or athletic groups, or school groups? No 09/21/2024 How often do you attend meet ings of the clubs or organizations you belong to? Never 09/21/2024 Are you , , di vorced, , never , or living with a partner? 09/21/2024 AUDIT-C Answer Date Recorded Q1: How often do you have a drink containing alcohol? Never 09/21/2024 Q2: How many drinks containi ng alcohol do you have on a typical day when you are drinking? Patient does not drink Q3: How often do you have si x or more drinks on one occasion? Never 09/21/2024 Overall Financial Resource Strain (CARDIA) Answe r Date Recorded How hard is it for you to pa y for the very basics like food, housing, medical care, and heating? Not hard at all 09/21/2024 [employer] [facility] [facility] - Occupational Stress Questionnaire Answer Date Recorded Do you feel stress - tense, restless, nervous, or anxious, or unable to sleep at night because your mind is troubled all the time - these days? Only a little 09/21/2024 Exercise Vital Sign Answer Date Recorde d On average, how many days pe r week do you engage in moderate to strenuous exercise (like a brisk walk)? 0 days 09/21/2024 On average, how many minutes do you engage in exercise at this level? 0 min 09/21/2024 Hunger Vital Sign Answer Date Recorded Within the past 12 months, y ou worried that your food would run out before you got the money to buy more. Never true 09/22/19 Within the past 12 months, t he food you bought just didn't last and you didn't have money to get more. Never true 09/21/2024 PRAPARE - Transportation Answer Date Re corded In the past 12 months, has l ack of transportation kept you from medical appointments or from getting medications? No 10/02 In the past 12 months, has l ack of transportation kept you from meetings, work, or from getting things needed for daily living? No 10/11/2024 Housing Stability Vital Sign Answer Franck e Recorded In the last 12 months, was t here a time when you were not able to pay the mortgage or rent on time? No 09/21/2024 In the past 12 months, how m any times have you moved where you were living? 0 09/21/2024 At any time in the past 12 m [facility], were you homeless or living in a halfway (including now)? No 09/21/2024 [facility] Utilities Answer Date Recorded In the past 12 months has th e electric, gas, oil, or water company threatened to shut off services in your home? No 09/21/2024 Comments Unknown Sex and Gender Information Value Date Recorded Sex Assigned at Not on file Legal Sex Female 3:25 PM CDT Gender Identity Not on file Sexual Orientation Not on file Last Filed Vital Signs Vital Sign Reading Time Taken Comments Blood Pressure 137/72 12/12/2024 4:16 PM CDT Pulse 60 12/12/2024 4:16 PM CDT Temperature 36.6 C (97.9 F) 12/12/2024 4:16 PM CDT Respiratory Rate 18 12/12/2024 4:16 PM CDT Oxygen Saturation 99% 12/12/2024 4:16 PM CDT Inhaled Oxygen Concentration - - Weight 81.6 kg (180 lb) 10/16/2024 12:59 PM CDT Height 170.2 cm (5' 7) 10/16/2024 12:59 PM CDT Body Mass Index 28.19 10/16/2024 12:59 PM CDT Plan of Treatment Health Maintenance Due Date Last Done Comments Diabetes: Eye Exam 1976 Diabetes: Hemoglobin A1c 1976 Hepatitis C Virus (HCV) Screening 1976 Mammogram 1976 Hepatitis B Immunization (1 of 3 - 19+ 3-dose series) 01/14/1995 Pneumococcal Immunization Combined (1 of 2 - PCV) 01/14/1995 Pap Smear 01/14/1997 Cervical Cancer Screening (CCS) 01/14/2006 HPV/Cotest 01/14/2006 Discussion re Starting/Frequency of Mammograms 2016 Cologuard 01/14/2021 Colonoscopy 01/14/2021 Colorectal Cancer Screening 01/14/2021 Immunochemical Fecal Occult Blood 01/14/2021 Influenza Immunization (#1) 2024 SARS-COV-2 Immunization ( season) 2024 Diabetes: Foot Exam 08/22/2025 08/22/2024 Diabetes: Nephropathy Screening 09/12/2025 09/12/2024, 08/24/2024 Respiratory Syncytial Virus (RSV) Immunization (Adult) (1 - 1-dose 75+ series) 01/14/2051 TdaP Immunization Completed 08/18/2015 Human Papillomavirus (HPV) Immunization Aged Out No longer eligible b ased on patient's age to complete this topic Meningococcal Immunization (ACWY) Aged Out No longer eligible b ased on patient's age to complete this topic Rotavirus Immunization Aged Out No lo nger eligible based on patient's age to complete this topic Procedures Procedure Name Priority Date/Time Associated Diagnosis Comments URINALYSIS REFLEX IF INDICATED BY ABNORMAL RESULTS STAT 10/04/2024 4:43 PM CDT CULTURE, URINE Routine 10/04/2024 4:43 PM CDT BASIC METABOLIC PANEL W/ CALCIUM TOTAL Routine 10/02/2024 2:05 AM CDT CMP (COMPREHENSIVE METABOLIC PANEL) Routine 09/12/2024 1:55 AM CDT PODIATRY CONSULT 08/22/2024 12:0 0 AM CDT from Last 3 Months or Most Recently Relevant to Health Maintenance Results * (ABNORMAL) URINALYSIS REFLEX IF INDICATED BY ABNORMAL RESULTS (10/04/2024 4:43 PM CDT) SPECIFIC GRAVITY 1.016 1.003 - 1.030 10/04 5:56 PM CDT [facility] URINE PH 6.5 5.0 - 9.0 10/04/2024 5:56 PM CDT [facility] WBC ESTERASE 1+(A) Negative 10/04/2024 5:56 PM CDT [facility] NITRITE Negative Negative 10/04/2024 5:56 PM CDT [facility] PROTEIN, RANDOM URINE 1+(A) Negative 10/04/2024 5:56 PM CDT [facility] URINE GLUCOSE, QUAL Negative Negative 10/04/2024 5:56 PM CDT [facility] URINE KETONES Negative Negative 10/04/2024 5:56 PM CDT [facility] UROBILINOGEN 0.2 0.2 , 1.0 , Normal mg/dL 10/04/2024 5:56 PM CDT [facility] URINE BLOOD Trace(A) Negative kai/ul 10/04/2024 5:56 PM CDT [facility] URINALYSIS COLOR Yellow 10/05/19 5:56 PM CDT [facility] URINALYSIS CLARITY Clear 10/04/2024 5:56 PM CDT [facility] WBC (Urine) 21-50(A) Negative, 0-5, 6-10, 11-20 /hpf 10/04/2024 5:56 PM CDT [facility] URINE RBC'S 3-5(A) Negative, 0-2, 3-5, 6-10, 11-20 /hpf 10/04/2024 5:56 PM CDT [facility] EPITHELIAL CELLS Negative Negative, Occasional /lpf 10/04/2024 5:56 PM CDT [facility] BACTERIA, URINE Negative Negative, Few /hpf 10/04/2024 5:56 PM CDT [facility] HYALINE CASTS QUANT 3-5/lpf 0-2, 3-5 /lpf 10/04/2024 5:56 PM CDT [facility] Urine (Indwelling Catheter) Non-Phlebotomy Collection / Unknown 10/04/2024 4:43 PM CDT 10/04/2024 4:58 PM CDT us Farida Brand APRN, RECORDS TECH URINE ORDERABLES Melissa l Result [facility] [address] [place] [address], [place] * Culture, Urine (10/04/2024 4:43 PM CDT) CULTURE RESULTS Mixed Growth of One or More Distal Urethral Contaminants 10/05/2024 12:59 PM CDT [facility] Urine (Indwelling Catheter) Non-Phlebotomy Collection / Unknown 10/04/2024 4:43 PM CDT 10/04/2024 4:58 PM CDT us Farida Brand SAP ABAP DEVELOPER, RECORDS TECH MICROBIOLOGY - GENERA L ORDERABLES Final Result [facility] [address] [place] [address], * (ABNORMAL) Basic Metabolic Panel w/ Calcium Total (10/02/2024 2:05 AM CDT) SODIUM 137 136 - 145 mmol/L 10/02/2024 5:45 AM CDT [facility] POTASSIUM 4.5 3.5 - 5.1 mmol/L 10/02/2024 5:45 AM CDT [facility] CHLORIDE 106 98 - 107 mmol/L 10/02/2024 5:45 AM CDT [facility] CO2, VENOUS 19(L) 22 - 30 mmol/L 10/02/2024 5:45 AM CDT [facility] ANION GAP 12.0 <18.0 mmol/L 10/02/2024 5:45 AM CDT [facility] GLUCOSE 113(H) 70 - 99 mg/dL 10/02/2024 5:45 AM CDT [facility] BUN 17 5 - 18 mg/dL 10/02/2024 5:45 AM CDT [facility] CREATININE, BLOOD 0.47(L) 0.60 - 1.00 mg/dL 10/02/2024 5:45 AM CDT [facility] BUN/CREATININE RATIO 36(H) 12 - 20 ratio 10/02/2024 5:45 AM CDT [facility] CALCIUM 8.7 8.7 - 10.5 mg/dL 10/02/2024 5:45 AM CDT [facility] GFR, ESTIMATED >60 >=60 10/02/2024 5:45 AM CDT [facility] Comment: Creatinine Clearance is the preferred criteria for selecting drug dose adjustments in renally impaired patients. The GFR is provided as additional pertinent clinical information. GFR is reported in mL/min/1.73 sq m. Calculation based on the Chronic Kidney Disease Epidemiology Collaboration (CKD- EPI) equation refit without adjustment for race. GFR, EST. >60 >=60 025 5:45 AM CDT [facility] GFR, EST. NONAFRICAN >60 >=60 10/02/2024 5:45 AM CDT [facility] Blood Venipuncture / Unknown 10/02/2024 2:05 AM CDT 10/02/2024 3:54 AM CDT us Kelley Jeffries MD CHEMISTRY ORDERABLES Final Result Performing Organization Address City/State/[facility] Co de Phone Number [facility] [address] [place] [address], * (ABNORMAL) CMP (Comprehensive Metabolic Panel) (09/12/2024 1:55 AM CDT) SODIUM 140 136 - 145 mmol/L 09/12/2024 7:06 AM CDT [facility] POTASSIUM 4.2 3.5 - 5.1 mmol/L 09/12/2024 7:06 AM CDT [facility] CHLORIDE 111(H) 98 - 107 mmol/L 09/12/2024 7:06 AM CDT [facility] CO2, VENOUS 22 22 - 30 mmol/L 09/12/2024 7:06 AM CDT [facility] ANION GAP 7.0 <18.0 mmol/L 09/12/2024 7:06 AM CDT [facility] GLUCOSE 166(H) 70 - 99 mg/dL 09/12/2024 7:06 AM CDT [facility] BUN 28(H) 5 - 18 mg/dL 09/12/2024 7:06 AM CDT [facility] CREATININE, BLOOD 0.83 0.60 - 1.00 mg/dL 09/12/2024 7:06 AM [facility] BUN/CREATININE RATIO 34(H) 12 - 20 ratio 09/12/2024 7:06 AM [facility] TOTAL PROTEIN 7.1 6.0 - 8.0 g/dL 09/12/2024 7:06 AM [facility] ALBUMIN 2.3(L) 3.5 - 5.0 g/dL 09/12/2024 7:06 AM [facility] A/G RATIO 0.5(L) 1.0 - 2.2 09/12/2024 7:06 AM [facility] CALCIUM 7.7(L) 8.7 - 10.5 mg/dL 09/12/2024 7:06 AM [facility] T BILI 0.1(L) 0.2 - 1.2 mg/dL 09/12/2024 7:06 AM [facility] SGOT (AST) 27 <43 U/L 09/12/2024 7:06 AM [facility] SGPT (ALT) <6 <56 U/L 09/12/2024 7:06 AM [facility] ALKALINE PHOSPHATASE 91 40 - 150 U/L 09/12/2024 7:06 AM [facility] GFR, ESTIMATED >60 >=60 09/12/2024 7:06 AM [facility] Comment: Creatinine Clearance is the preferred criteria for selecting drug dose adjustments in renally impaired patients. The GFR is provided as additional pertinent clinical information. GFR is reported in mL/min/1.73 sq m. Calculation based on the Chronic Kidney Disease Epidemiology Collaboration (CKD- EPI) equation refit without adjustment for race. GFR, EST. >60 >=60 025 7:06 AM [facility] GFR, EST. NONAFRICAN >60 >=60 09/12/2024 7:06 AM [facility] Blood Venipuncture / Unknown 09/12/2024 1:55 AM CDT 09/12/2024 4:39 AM CDT us Bigg Galindo MD CHEMISTRY ORDERA BLES Final Result [facility] [address] [place] [address], [place] * PODIATRY CONSULT (08/22/2024 12:00 AM CDT) 08/22/2024 us Provider Scan GENERIC SCAN ORDERS CONSULT Melissa l Result SCAN from Last 3 Months or Most Recently Relevant to Health Maintenance Insurance MEDICAID [place] Advance Directives * Full Code (Latest Code Status on File) Date Activated Date Inactivated Comments 09/21/2024 11:02 AM CPR-Full Tammy tment: FULL ARREST: Attempt Resuscitation/CPR wit intubation and mechanical ventilation. PRE-ARREST: Use entire range of life support measures to stabilize the patient. * Full Code Date Activated Date Inactivated Comments 08/23/2024 10:52 PM 09/21/2024 11:02 AM CPR-Full T reatment: FULL ARREST: Attempt Resuscitation/CPR wit intubation and mechanical ventilation. PRE-ARREST: Use entire range of life support measures to stabilize the patient. 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
--- OUTSIDE RECORDS SUMMARY | 2025-01-01 15:10 | XMS_ITS | Clinical Summary ---
Author Organization [facility] Address [address] [place] [id number] Care Team Providers Care Electric Transfer Operator Name Role Phone None, Provider MD Primary Care Provider Unavaila ble Allergies Active Allergy Reactions Criticality Noted Date Comments Penicillins Rash Low 12/18/2018 Medications traMADol 50 MG tablet 0 12/30/2017 Active oxyCODONE 30 MG immediate release tablet Take 30 mg by mouth every 4 (four) hours as needed. 0 11/21/2018 Active methadone 10 MG tablet Take 10 mg by mouth 2 (two) times daily. 0 11/21/2018 Active methylPREDNISolo ne, VERONICA, 4 MG tablet 6 TABS X 1 DAY, 5 TABS DAY 2, 4 TABS DAY 3, 3 TABS DAY 4, 2 TABS DAY 5, 1 TAB DAY SIX 1 each 12/18/2018 Active Social History Tobacco Use Types Packs/Day Years Used Date Smoking Tobacco: Former Smokeless Tobacco: Never Alcohol Use Standard Drinks/Week Comments No 0 (1 standard drink = 0.6 oz pur e alcohol) AUDIT-C Answer Date Recorded Frequency of Alcohol Consumption Never 12/18/2018 Average Number of Drinks Not on file 019 Frequency of Binge Drinking Not on file 12/03 Comments Unknown Sex and Gender Information Value Date Recorded Sex Assigned at Not on file Legal Sex Female 9:24 AM CDT Gender Identity Not on file Sexual Orientation Not on file Last Filed Vital Signs Vital Sign Reading Time Taken Comments Blood Pressure 158/99 12/18/2018 11:35 AM CDT Pulse 91 12/18/2018 11:35 AM CDT Temperature 36.9 C (98.5 F) 12/18/2018 9:51 AM CDT Respiratory Rate 18 12/18/2018 11:35 AM CDT Oxygen Saturation 97% 12/18/2018 11:35 AM CDT Inhaled Oxygen Concentration - - Weight 127 kg (280 lb) 12/18/2018 9:51 AM CDT Height 170.2 cm (5' 7) 12/18/2018 9:51 AM CDT Body Mass Index 43.85 12/18/2018 9:51 AM CDT Plan of Treatment Health Maintenance Due Date Last Done Comments Cervical Cancer Screening Pa p Smear (Age 30 to 64) Every 3 Years 1976 Colorectal Cancer Screening Colonoscopy (10 Years) 1976 Annual Physical 01/14/1979 Hepatitis C 01/14/1994 DTaP, Tdap and Td Vaccines ( 1 - Tdap) 01/14/1995 Hepatitis B Vaccines (1 of 3 - 19+ 3-dose series) 01/14/1995 Cervical Cancer Screening Pa p with HPV Testing (Age 30 to 64) Every 5 Years 01/14/2006 Cervical Cancer Screening with HPV 01/14/2006 Mammogram Screening 2016 COVID-19 Vaccine (2023-2 5 season) 2024 Meningococcal B Vaccine Aged Out No l onger eligible based on patient's age to complete this topic Meningococcal Vaccine Aged Out No teresa iveth eligible based on patient's age to complete this topic Pneumococcal Vaccine: Pediat rics (0 to 5 Years) and At-Risk Patients (6 to 49 Years) Aged Out No longer eligible b ased on patient's age to complete this topic RSV Immunizations Under 20 Months Aged Out No longer eligible based on patient's age to complete this topic Insurance MEDICAID Care Teams Electric Transfer Operator Relationship Specialty Start Date End Date None, Provider, PCP - General 12/18/18
--- OUTSIDE RECORDS SUMMARY | 2025-01-01 15:10 | XMS_ITS | Patient Health Record ---
Author Organization [facility] Address [address] [place] [address] Care Team Providers Care Buffer Chrome Name Role Phone Claudette Gaffney Primary Care Provider [phone] Dao Cabezas Unavailable [phone] Allergies Allergen (clinical drug ingredient) Drug/Non Drug Allergy documented on EMR Reaction Allergy Type Onset Date Status Penicillin Unknown Drug Allergy Active Reason For Referral Reason PREFERS [facility], FOR QUADRIPLEGIA, S/O CERVICAL SPINE SURGERY, LEFT ADHESIVE CAPSULITIS Diagnosis 1 Quadriplegia, unspec ified (G82.50) Referral Organization [facility] Referring Provider First Name Dao Referring Provider Last Name Jocelynn Referring Provider Speciality Internal edicine Referred Provider Specialty Physical The rapist Referral Priority Routine Reason MONTHLY TREJO CHANGE , PREFERS [facility] Diagnosis [address] (Z97.8) Referral Organization [facility] Referring Provider First Name Dao Referring Provider Last Name Jocelynn Referring Provider Speciality Internal edicine Referred Provider Specialty Home Health Care Referral Priority Routine Reason PRESACRAL ULCER, HEA LING, NEEDS F/U WOUND CARE Diagnosis 1 Decubitus ulcer (L89 .90) Referral Organization [facility] Referring Provider First Name Dao Referring Provider Last Name Jocelynn Referring Provider Speciality Internal edicine Referred Provider Specialty Wound Care Referral Priority Routine Medications Medication SIG (Take, Route, Frequency, Duration) Notes Start Date End Date Status Gabapentin 800 MG 1 tablet Orally 3 ti mes a day; Duration: 30 days Active Acetaminophen 500 MG two tablets as need ed for pain (maximum of 6 tablets in 24 hours) Orally every 6 hrs 12/17/2024 Active Lidocaine & Adhesive Sheets 5 % (Patch) 1 topically Externally daily; Duration: 30 days As needed low back pain, remove after 12 hours Active Calcium Carbonate Antacid 420 MG 2 tablets Orally Once a day; Duration: 30 days Active Baclofen 10 MG 1 tablet as needed Orally 3 times a day; Duration: 30 days As needed muscle spasms 12/17/2024 Active oxyBUTYnin Chloride ER 10 MG TAKE 1 TABL ET BY MOUTH DAILY FOR URINARY INCONTINENCE; Duration: 30 Active Social History Sex Assigned At : Social History Observation Description Sex Assigned At Female Problems Problem Type SNOMED Code ICD Code Onset Dates Problem Status W/U Status Risk Notes Problem Quadriplegia (05386773) Quadriplegia, unspecified (G82.50) Active confirmed Problem Pressure injury (morphologic abnormality) (6256608640) Decubitus ulcer (L89.90) Active confirmed Vital Signs Heart Rate 65 /min 12/17/2024 Temperature 98.0 degrees Fahrenheit 12/17/2024 Respiratory Rate 16 /min 12/17/2024 Blood pressure diastolic 66 mm Hg 12/17/2024 Oximetry 99 % 12/17/2024 Height 67.5 in 12/17/2024 Blood pressure systolic 116 mm Hg 12/17/2024 Encounters Encounter Location Date Provider Diagnosis [facility] [place] [address] 12/17/2024 Dao Cabezas Quadriplegia, unspecified G82.50 ; Adhesive capsulitis of left shoulder M75.02 ; Trejo catheter in place Z97.8 and Decubitus ulcer L89.90 [facility] [address] [facility] [place] [address] 10/12/2024 Claudette Gaffney Assessments Encounter Date Diagnosis (ICD Code) Assessment Notes Treatment Notes Treatment Clinical Notes Section Notes 12/17/2024 Quadriplegia, unspecified (ICD-10 - G82.50) 12/17/2024 Adhesive capsulitis of left shoulder (ICD-10 - M75.02) 12/17/[address] (ICD-10 - Z97.8) DISCUSSED WITH PATIENT AND SISTER THAT SHE LIKELY HAS ASYMTPOMATIC BACTERIURIA DUE TO TREJO AND THERE IS NO NEED TO CULTURE OR TREAT UNLESS SHE HAS SYMPTOMS 12/17/2024 Decubitus ulcer (ICD-10 - L89.90) 12/17/2024 Other KENNETH SIGNED FOR 2024 RECORDS FROM [facility] Plan Of Treatment No Information Insurance Providers Payer Name Payer Address Payer Phone Subscriber Number Group Number Insured Name Patient Relationship to Insured Coverage Start Date Coverage End Date MEDICAID [address] [place] [address] [id number] Ashlee Lamas Self - patient is the insured Medical (General) History Medical History History ICD Code Asthma Neck surgery Surgical History Surgery Date(Month/Year) Knee surgery Neck Surgery Right wrist surgery Hospitalization History Reason Date(Month/Year) [facility] 2024 [facility] 2024 [facility] [place] [place] [facility]
--- NOTE | 2025-01-01 15:43 | PC.NURSE ---
pt had catheter from home. catheter was changed upon arrival.
[2025-01-01 15:44] VITALS: BP 194/83; PULSE 53; RESP 12; O2SAT 98
[2025-01-01 15:51] LABS: Add Urine Microscopic? YES; Appearance Urine Clear (Clear); Glucose Urine UA Negative (Negative); Leukocyte Esterase Ur 2+ LEU/UL (Negative); Nitrate Urine Negative (Negative); Non Pathogenic Casts 0-2; Specific Grav Ur 1.006 (1.001-1.035)
[2025-01-01 15:52] LABS: Pregnancy On Board Control Positive
[2025-01-01 18:42] VITALS: BP 140/78; PULSE 66; RESP 14; O2SAT 100
== END 2025-01-01 18:44 | disposition home or self-care (01) ==
PROVIDERS: Emergency Provider Student in an Organized Health Care Education/Training Program
DX: N92.1 Excessive and frequent menstruation with irregular cycle (principal); N39.0 Urinary tract infection, site not specified; M25.512 Pain in left shoulder; T81.40XS Infection following a procedure, unspecified, sequela; G82.20 Paraplegia, unspecified; M19.012 Primary osteoarthritis, left shoulder; Y83.8 Other surgical procedures as the cause of abnormal reaction of the patient, or of later complication, without mention of misadventure at the time of the procedure
CPT/HCPCS: 36415; 51702; 73030; 73060; 80053; 81001; 81025; 85025; 87086; 99283; A9270

== ENCOUNTER 2025-02-07 02:35 | Inpatient (IN) | payer OTHER, SELFPAY ==
--- OUTSIDE RECORDS SUMMARY | 2024-10-22 07:00 | XMS_ITS ---
Author Organization [facility] Address [address] [place] [address] Care Team Providers Care Parking Garage Manager Name Role Phone Claudette Gaffney Primary Care Provider REASON FOR VISIT CA due to error Social History Sex Assigned At : Social History Observation Description Sex Assigned At Female Encounters Encounter Location Date Provider Diagnosis [address] [place] [address] 10/22/2024 Claudette Gaffney Plan Of Treatment No Information Progress Notes * Chilo LAMASRudyOB: 6 (50 yo F)Acc No.[id number]:10/22/2024 UNLOCKED PROGRESS NOTE Patient: Ashlee MACHADO Provider: LUCIE Loredo :1975 A ge:49 Y S ex:Female Date:10/22/2024 Phone: [facility] Subjective: * Chief Complaints: * 1 . CA due to error. * Medical History: Objective: * Vitals: Assessment: Plan: * Treatment: * * Electronic signature of Suzette Gaffney on 02/07/2025 at 04:12 PM DIETARY TECH Sign off status: Pending * Provider: LUCIE Loredo Date: 0 10/22/2024 Generated for Clementine medel/Harley/eTransmitting on: 1 04/09/2024 04:12 PM DIETARY TECH
--- OUTSIDE RECORDS SUMMARY | 2024-12-11 03:00 | XMS_ITS ---
Author Organization [facility] Address [address] [place] [address] Care Team Providers Care Plush Dresser Name Role Phone Claudette Gaffney Primary Care Provider [phone] Dao Cabezas Unavailable [phone] REASON FOR VISIT New patient Social History Sex Assigned At : Social History Observation Description Sex Assigned At Female Encounters Encounter Location Date Provider Diagnosis [address] [address] 12/11/2024 Dao Cabezas Plan Of Treatment No Information Progress Notes * Nichole LAMASOB: 6 (50 yo F)Acc No.[id number]:12/11/2024 UNLOCKED PROGRESS NOTE Progress Notes Patient: Ashlee MACHADO Provider: Susie Cabezas :1975 A ge:49 Y S ex:Female Date:12/11/2024 Phone: [facility] Pcp:Claudette Gaffney Subjective: * Chief Complaints: * 1 . New patient. * Medical History: Objective: * Vitals: Assessment: Plan: * Treatment: * * Electronic signature of Lyssa Cabezas , [id number] on 02/07/2025 at 04:12 PM EMERGENCY ROOM CLINICIAN Sign off status: Pending * Provider: Susie Cabezas Date: 0 12/11/2024 Generated for Clementine medel/Facheyenneg/eTransmitting on: 1 04/09/2024 04:12 PM EMERGENCY ROOM CLINICIAN
[2025-02-07] VITALS (54 sets, daily range): BP systolic 82–140; BP diastolic 44–78; PULSE 41–119; RESP 8–22; TEMP 36.4–40.1; O2SAT 97–100; BMI 31.9
--- NOTE | ~2025-02-07 | MR_ITS ---
EXAMINATION: MR abdomen wo/w con DATE: 02/12/2025 13:52 INDICATION: Adrenal lesion TECHNIQUE: Magnetic resonance imaging (MRI) of the abdomen was performed without and with 20 mL Multihance intravenous contrast. Sequences included coronal T2- weighted SS-FSE, coronal and axial FS 2D-FIESTA, axial STIR FSE, axial T2- weighted SS-FSE, axial T2-weighted FS SS-FSE, axial diffusion-weighted SE, axial dual-echo T1-weighted FSPGR, and axial and coronal T1-weighted LAVA. Postcontrast axial T1-weighted LAVA images were obtained in a time course. Postcontrast coronal T1-weighted LAVA images were obtained. COMPARISON: CT dated 02/07/2025 FINDINGS: Small bilateral posterior layering pleural effusions. Heart size is normal. No pericardial effusion. Multiple low signal intensity gallstones nearly filling the otherwise normal gallbladder. Hepatosplenomegaly which may be related to body habitus the liver measuring 23 cm in length and the spleen measuring 15.8 cm in maximal length. For millimeter T2 hyperintense nonenhancing hepatic cyst. There are small bilateral T2 hyperintense nonenhancing renal cysts the largest on the left measuring 1 cm. Pancreas and right adrenal glands are normal. No intra or extra hepatic biliary ductal dilation. 3.0 x 2.6 cm left adrenal mass with greater than 20% signal loss on the post phase imaging consistent with an adrenal adenoma. Bilateral adnexal cysts the larger on the right measuring 2.4 cm. No bowel obstruction. No pathologically enlarged abdominal or upper pelvic lymphadenopathy. Mild lumbar dextrocurvature with moderate spondylosis. T1 hyperintense fat saturating hemangioma at T9. IMPRESSION: 1. 3.0 x 2.6 cm left adrenal adenoma. 2. Hepatosplenomegaly which may be related to body habitus. 3. Cholelithiasis. 4. Small bilateral posterior layering pleural effusions. Reviewed, dictated and finalized at location A. DCARE ATTENDANT
--- NOTE | ~2025-02-07 | XR_ITS ---
EXAMINATION: XR chest 1V portable DATE: 02/08/2025 10:43 INDICATION: Chest pain and shortness of breath TECHNIQUE: frontal view of the chest was obtained. COMPARISON: Chest radiograph dated 02/07/2025 FINDINGS: Mild streaky bibasilar atelectasis. No other airspace opacities, pulmonary edema, pleural effusion or pneumothorax. The cardiomediastinal silhouette is normal. Left subclavian central venous catheter with distal tip at the cephalad superior vena cava. IMPRESSION: 1. Mild bibasilar atelectasis. Reviewed, dictated and finalized at location A. NCIAL AGENT
--- NOTE | ~2025-02-07 | XR_ITS ---
Examination: XR knee LT 3V Clinical History: Knee swelling Comparison: None Technique: 4 views left knee Findings/impression: 1. Joint effusion. 2. Prepatellar soft tissue swelling. 3. Anterior subluxation of femur relative to tibia. 4. Erosive changes along tibial surface. 5. Soft tissue calcification. 6. No fracture. Reviewed, dictated and finalized at location R. ING MACHINE TENDER
--- NOTE | ~2025-02-07 | CT_ITS ---
EXAMINATION: CT chest abdomen pelvis w con DATE: 02/07/2025 04:24 INDICATION: Sepsis. Paraplegia. TECHNIQUE: Computed tomography (CT) of the chest, abdomen, and pelvis was performed with 100 mL Omnipaque 350 intravenous contrast. Automated exposure control and iterative reconstruction technique were employed. The dose-length product was 1466.43 mGy-cm. COMPARISON: None FINDINGS: CHEST CT: The lungs demonstrate mild atelectasis. No pleural effusion. The heart size is normal. There are coronary artery calcifications. No pericardial effusion. There is severe cervical spondylosis and moderate thoracic spondylosis. There is mild chronic anterior wedging of multiple vertebral bodies. ABDOMEN/PELVIS CT: The liver is normal. The gallbladder is distended and contains sludge or stones. The spleen, pancreas, and right adrenal gland are normal. There is a 3.5 cm mass in left adrenal gland. There are cysts in the kidneys measuring up to 9 mm on the left. There is mild right hydroureter. There is urothelial enhancement in the right ureter. There is mild left hydronephrosis and hydroureter. There is urothelial enhancement in left ureter. The bladder is decompressed by a Ng catheter. There are nabothian cysts in the cervix. The appendix is normal. 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 There are no pathologically enlarged lymph nodes. There is no free intraperitoneal fluid. There is moderate lumbar spondylosis. IMPRESSION: 1. Mild right hydroureter and mild left hydronephrosis and hydroureter with bilateral urothelial enhancement, consistent with bilateral pyelitis. 2. Gallbladder distention, which may be secondary to fasting. Correlate with physical exam to exclude acute cholecystitis. 3. 3.5 cm left adrenal mass. 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 4. 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 Reviewed, dictated and finalized at location E. OR RESEARCH ASSOCIATE IMPRESSION: 1. Mild right hydroureter and mild left hydronephrosis and hydroureter with carlota ateral urothelial enhancement, consistent with bilateral pyelitis. 2. Gallbladder distention, which may be secondary to fasting. Correlate with ph ysical exam to exclude acute cholecystitis. 3. 3.5 cm left adrenal mass. In the absence of known malignancy, this finding i s likely an adenoma. 4. 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
--- NOTE | ~2025-02-07 | MR_ITS ---
EXAMINATION: MR cervical spine wo/w con DATE: 02/11/2025 14:40 INDICATION: Persistent fever and back pain TECHNIQUE: Magnetic resonance imaging (MRI) of the cervical spine was performed without and with 20 mL Multihance intravenous contrast. Sequences included sagit cervical withal T2-weighted FSE, sagittal T2-weighted FS FSE, sagittal T1- weighted FSE, axial MERGE and axial T2-weighted FSE. COMPARISON: Cervical spine CT dated 02/10/2025 FINDINGS: Mild focal kyphosis associated with the anterior fusion at C6-C7 with suggestion of the pre-existing mild anterior vertebral body height loss at C6. Alignment is otherwise normal. Unfused vertebral body heights are normal. Postoperative change of C5-C7 laminectomies. Moderate osteoarthritis at the atlantoaxial articulation. Disc heights are normal. T1 hyperintense hemangioma at T3. Bone marrow signal intensity is otherwise normal with no osteophytosis or other pathologic marrow replacing process. Intervertebral disc heights are normal. There is focal increased cord fluid signal extending approximately 2 cm craniocaudally centered at the level of the fused C6-C7 disc space and underlying the site of the prior laminectomies with suggest cirrhosis secondary to prior trauma or central canal narrowing. No abnormally enhancing cord lesions identified. No abscess. The following disc levels are specifically discussed: C2-C3: The disc does not extend beyond the endplate margin. There is mild bilateral uncovertebral joint osteoarthritis. There is mild bilateral facet joint osteoarthritis. There is no neural foraminal stenosis. There is no central canal stenosis. C3-C4: Annular fissure and small central disc extrusion with disc material extending a few millimeter caudal to the level of the superior endplate of C4 which indents the central ventral surface of the cord. There is mild right and moderate left uncovertebral joint osteoarthritis. There is mild bilateral facet joint osteoarthritis. There is mild bilateral neural foraminal stenosis. There is mild central canal stenosis. C4-C5: The disc does not extend beyond the endplate margin. There is mild bilateral uncovertebral joint osteoarthritis. There is mild bilateral facet joint osteoarthritis. There is mild bilateral neural foraminal stenosis. There is no central canal stenosis. C5-C6: Disc is mildly bulging. There is mild bilateral uncovertebral joint osteoarthritis. There is mild bilateral facet joint osteoarthritis. There is mild left and moderate right neural foraminal stenosis. Posterior decompression with CT C5 and C6 laminectomies and no central canal stenosis. C6-C7: Disc space and uncovertebral joints are fused with mild hypertrophic changes. There is mild bilateral facet joint osteoarthritis. There is mild bilateral, right greater than left neural foraminal stenosis. Posterior decompression with C6 and C7 laminectomies and no central canal stenosis. C7-T1: Disc is mildly bulging. There is mild bilateral uncovertebral joint osteoarthritis. There is mild left and mild to moderate right facet joint osteoarthritis. There is mild left and moderate right neural foraminal stenosis. There is minimal central canal stenosis. IMPRESSION: 1. Increased cord signal centered at C6-C7 which suggests sequela of either prior trauma or central canal stenosis given the anterior spinal fusion with suggestion of some prior anterior vertebral body height loss at C6 and the prior lower cervical posterior decompression with C5-C7 laminectomies. 2. Otherwise mild cervical spondylosis. No abscess, osteomyelitis or other findings to suggest infection. Reviewed, dictated and finalized at location A. E RECLAMATION TENDER IMPRESSION: 1. Increased cord signal centered at C6-C7 which suggests sequela of either jf or trauma or central canal stenosis given the anterior spinal fusion with sugge stion of some prior anterior vertebral body height loss at C6 and the prior low er cervical posterior decompression with C5-C7 laminectomies. 2. Otherwise mild cervical spondylosis. No abscess, osteomyelitis or other find ings to suggest infection.
--- NOTE | ~2025-02-07 | XR_ITS ---
Examination: XR chest 1V portable Clinical History: FEVER Comparison: None Technique: Portable AP Findings: Heart size normal. Lungs clear. No acute bony abnormality. IMPRESSION: 1. No acute cardiopulmonary findings given portable technique. Reviewed, dictated and finalized at location R. OGICAL SCIENCE TECHNICIAN FISH
--- NOTE | ~2025-02-07 | XR_ITS ---
Examination: XR chest port-a-cath/central Clinical History: central line placement Comparison: X-ray 2 hours prior Technique: Portable AP Findings: Left subclavian central line. Heart size normal. Lungs clear. No acute bony abnormality. IMPRESSION: 1. No pneumothorax or other acute cardiopulmonary findings given portable technique. Reviewed, dictated and finalized at location R. E CLERK IMPRESSION: 1. No pneumothorax or other acute cardiopulmonary findings given portable tech nique.
--- NOTE | ~2025-02-07 | MR_ITS ---
EXAM/PROCEDURE: MR lumbar spine wo/w con HISTORY: hx of spine osteo, persistent fever and back pain COMPARISON: None available. TECHNIQUE: Pre and postcontrast enhanced lumbar spine MRI performed. FINDINGS: Degenerative changes present throughout the lumbar spine. No acute or aggressive bony process seen. Hemangiomatous appearing lesion in the L4 vertebral body. No evidence of discitis. Incidental findings in the abdomen and pelvis not clearly changed from recent CT exam of the abdomen and pelvis. The conus tapers normally at L1. Level specific findings as follows: T12-L1: Moderately severe degenerative changes but no spinal canal stenosis or discrete disc protrusion. Mild bilateral neural foraminal narrowing. L1-2: Moderate degenerative changes with no spinal canal stenosis or discrete disc protrusion. Mild bilateral neural foraminal narrowing. L2-3: Moderate to severe facet hyperostosis, thickening of ligamentum flavum and moderately severe broad-based disc bulging/posterior spondylosis results in mild spinal canal stenosis and stenosis in the lateral recesses. No discrete disc protrusion, although there is asymmetric bulging in the right paracentral portion. Mild to moderate bilateral neural foraminal narrowing. L3-4: More severe broad-based disc bulging and facet hyperostosis with thickening of the ligamentum flavum resulting in moderate to severe spinal canal stenosis. There appears to be disc extrusion extending caudally along the posterior superior endplate of L4. See image 9 series 21. Moderate to severe left and moderate right-sided neural foraminal narrowing. Posterior to the L4 vertebral body in the midportion, image 10 series 20 4A performed enhancing possible small fluid accumulation present measuring 5 x 4 mm. This is right at the distal tip of the extruded disc. L4-5: Large asymmetric posterior spondylosis and/or disc bulging in the right para midline to right foraminal region resulting in stenosis of the spinal canal on the right side as well as right lateral recess stenosis. See image 24 series 22. Moderate bilateral neural foraminal narrowing. L5-S1: Large central disc protrusion and/or posterior spondylosis results in spinal canal stenosis. See image 28 series 22. Moderate to severe bilateral neural foraminal narrowing. IMPRESSION: 1. Severe degenerative changes in the lower lumbar spine with multilevel spinal canal stenosis at L3-4, L4-5 and L5-S1; stenosis is most severe at L3-4 as detailed above. 2. A 5 x 4 mm possible tiny peripherally enhancing fluid collection along the posterior margin of L4 at the distal margin of the extruded disc at the L3-4 level likely reactive inflammatory change but tiny developing infection or abscess is not excluded. Correlate with C-reactive protein and white count. Follow-up lumbar spine MRI as clinically appropriate if patient is managed conservatively. 3. No other suspiciously enhancing lesions or masses. No abscess or abnormal fluid collection. Reviewed, dictated and finalized at location A. ER MIXER IMPRESSION: 1. Severe degenerative changes in the lower lumbar spine with multilevel spinal canal stenosis at L3-4, L4-5 and L5-S1; stenosis is most severe at L3-4 as det benito above. 2. A 5 x 4 mm possible tiny peripherally enhancing fluid collection along the p osterior margin of L4 at the distal margin of the extruded disc at the L3-4 lev el likely reactive inflammatory change but tiny developing infection or abscess is not excluded. Correlate with C-reactive protein and white count. Follow-up lumbar spine MRI as clinically appropriate if patient is managed conservatively . 3. No other suspiciously enhancing lesions or masses. No abscess or abnormal fl uid collection.
--- NOTE | ~2025-02-07 | CT_ITS ---
EXAMINATION: CT thoracic lumbar w con, 02/10/2025 18:30 [employer]PORATE EXECUTIVE [employer]F HISTORY: Febrile illness, history of osteomyelitis of spine COMPARISON: No comparisons available. Technique: Axial images were obtained of the spine per protocol. One or more of the following dose reduction techniques were used: automated exposure control, adjustment of the mA and/or kV according to patient size, use of iterative reconstruction technique. Unless otherwise stated, incidental findings do not require dedicated follow up imaging Findings: Moderate loss of vertebral height throughout, no acute fracture or subluxation. Moderate loss of disc height throughout most marked at T11-12, L1-2, L3-4, L4-5 and L5-S1 with moderate to severe canal and foraminal stenosis. Mild cardiomegaly, there are small bilateral simple appearing pleural effusions with compressive atelectasis, within the soft tissues there are enlarged lymph nodes in the retrocrural space with a left adrenal lesion measuring 3.5 x 3.4 cm incompletely evaluated, adrenal MRI is recommended. Impression: 1. No evidence of osteomyelitis. There remains clinical concern contrast- enhanced MRI is recommended. 2. Incidental findings above Reviewed, dictated and finalized at location P. ORATE EXECUTIVE CHEF Impression: 1. No evidence of osteomyelitis. There remains clinical concern contrast-enhanc ed MRI is recommended. 2. Incidental findings above
--- NOTE | ~2025-02-07 | CT_ITS ---
EXAMINATION: CT cervical spine w con, 02/10/2025 18:15 POST ACUTE CARE REGISTERED NURSE HISTORY: Febrile illness, history of osteomyelitis of spine COMPARISON: No comparisons available. Technique: Axial images were obtained of the spine per protocol. One or more of the following dose reduction techniques were used: automated exposure control, adjustment of the mA and/or kV according to patient size, use of iterative reconstruction technique. Unless otherwise stated, incidental findings do not require dedicated follow up imaging Findings: No acute fracture is identified, there are postsurgical changes related to laminectomy at C5, C6 and C7. There are remote compression fractures noted of C6 and C7 with partial fusion of the C6-7 disc space. The disc heights are intact. Soft tissues unremarkable Impression: Postsurgical changes detailed above. There is no gross osseous destruction to suggest acute osteomyelitis, there is sclerosis of the vertebral bodies of C6 and C7, chronic osteomyelitis is not excluded. Contrast-enhanced MRI is recommended Reviewed, dictated and finalized at location P. ACUTE CARE REGISTERED NURSE Impression: Postsurgical changes detailed above. There is no gross osseous destruction to s uggest acute osteomyelitis, there is sclerosis of the vertebral bodies of C6 an d C7, chronic osteomyelitis is not excluded. Contrast-enhanced MRI is recommend ed
--- NOTE | ~2025-02-07 | MR_ITS ---
EXAMINATION: MR thoracic spine wo/w con DATE: 02/11/2025 14:41 INDICATION: Fever and lesions TECHNIQUE: Magnetic resonance imaging (MRI) of the thoracic spine was performed with intravenous contrast. Sagittal localizer T1-weighted FSE of the cervical spine was obtained. Thoracic spine sequences included sagittal T2-weighted FSE, sagittal T1-weighted FSE, sagittal T2-weighted FS FSE, and axial T2-weighted FSE. COMPARISON: Thoracic spine CT exam from yesterday. FINDINGS: Moderate to large central disc protrusion is present at T7-T8 resulting in deformity of the ventral aspect of the spinal cord but no spinal canal stenosis. Moderate to large central disc protrusion at T11-12. No other large disc herniation or spinal canal stenosis seen. Moderate degenerative disc changes are present throughout the thoracic spine. Chronic anterior wedge deformity of the lower thoracic vertebral bodies. 1.9 x 1.2 cm nonexpansile T2 weighted hyperintense lesion present in the T10 vertebral body this is hyperintense on T1-weighted images as well. IMPRESSION: 1. No evidence of osteomyelitis, discitis or abscess. No suspicious enhancing lesions seen within the vertebral column or the spinal cord. 2. Moderate to large central disc protrusions at T7-T8 and T11-12. Reviewed, dictated and finalized at location A. CCO EDUCATOR
--- NOTE | 2025-02-07 02:46 | ECG_ITS ---
Test Date: 2025-02-07 03:10:13 Measurements Intervals [place] Rate: 102 P: -53 [place]: 142 QRS: -13 QRSD: 97 T: 85 QT: 349 QTc: 457 Interpretive Statements SINUS TACHYCARDIA POSSIBLE LEFT ATRIAL ENLARGEMENT [-0.1mV P-WAVE IN V1/V2] MODERATE T-WAVE ABNORMALITY, CONSIDER LATERAL ISCHEMIA [-0.1+ mV T-WAVE IN I/aVL/V5/V6] No previous ECG available for comparison Electronically Signed On 02-07-2025 08:58:07 DIESEL ENGINEER by Jj Juarez M.D.
[2025-02-07] MEDS: LACTATED RINGERS 1,000 ML 999 ML IV CONT ×2 (02:58→02:59)
[2025-02-07 02:59] LABS: Hematocrit 37.3 % (37.0-47.0); Hemoglobin 12.0 g/dL (12.0-15.0); Immature Granulocyte Percent A 0.7 % (0-0.5); Lymphocytes Absolute Auto 0.46 K/mm3 (0.9-3.2); Mean Corpuscular HGB Conc 32.2 g/dl (32-36); Mean Corpuscular Hemoglobin 28.8 pg (26-34); Mean Corpuscular Volume 89.7 fl (80-100); Nucleated Red Blood Cells Absolute Auto 0.000 K/mm3 (0.0-0.012); Nucleated Red Blood Cells Perc 0.0 % (0.0-0.2); Platelet Count Result 210 k/mm3 (150-375); Red Blood Count 4.16 M/mm3 (4.2-5.4); White Blood Count 8.6 K/mm3 (4.5-10.0)
[2025-02-07] MEDS: LACTATED RINGERS 800 ML 999 ML IV CONT (02:59)
[2025-02-07] MEDS: ACETAMINOPHEN 500 MG TABLET 1000 MG PO (03:08)
[2025-02-07 03:11] LABS: Add Urine Microscopic? YES; Appearance Urine Cloudy (Clear); Glucose Urine UA Negative (Negative); Leukocyte Esterase Ur 3+ LEU/UL (Negative); Nitrate Urine Negative (Negative); Non Pathogenic Casts 0-2; Specific Grav Ur 1.015 (1.001-1.035)
--- NOTE | 2025-02-07 03:15 | PC.NURSE ---
Pt arrived to ED with chronic lezama catheter that appeared clogged, cloudy, dark, and odorous. Rns replaced a new catheter at this time. Pt lezama bag emptied immediately 2000 mls.
[2025-02-07 03:17] LABS: Alanine Aminotransferase 20 U/L (6-35); Albumin Level 4.2 g/dL (3.5-5.1); Alkaline Phosphatase 96 U/L (38-126); Anion Gap 13 mmol/L (4-12); Aspartate Amino Transferase 28 U/L (14-36); Bilirubin,Total 0.8 mg/dL (0.2-1.3); Blood Urea Nitrogen 39 mg/dL (7-17); CRP 1.8 mg/dL (<1.0); Calcium 8.4 mg/dL (8.4-10.2); Carbon Dioxide 17 mmol/L (22-30); Chloride 106 mmol/L (98-107); Estimated Glomerular Filt Rate > 60; Glucose 149 mg/dL (65-110); Potassium 4.2 mmol/L (3.4-5.0); Sodium 136 mmol/L (137-145); Total Protein 8.2 g/dL (6.3-8.2)
[2025-02-07 03:23] LABS: INR 1.2; Prothrombin Time 15.6 Seconds (11.1-14.7)
[2025-02-07 03:24] LABS: Partial Thromboplastin Time 30.5 Seconds (22.3-36.8)
--- NOTE | 2025-02-07 03:47 | ED_ITS ---
HPI - General Adult General Chief complaint: Fever Stated complaint: HAS TREJO, POSSIBLE UTI S/S, FEVER Time Seen by Provider: 02/07/25 03:26 History of Present Illness HPI narrative: This is a 50-year-old female with a history of paraplegia due to surgical complication presenting for fevers. Patient is a poor historian with low medical knowledge and cannot give me a clear idea of what exactly happened. From her recollection appears that in August of 2024 she developed infection in her left knee. While undergoing arthroscopy the she developed new paraplegia. She was then transferred to [facility] where she had a spinal surgery. I am requesting the records from these hospitals ([facility] and [facility] Patient is here today because when she woke up at 9:00 p.m. last night she felt abdominal pain. Her Trejo was no longer draining. She developed fevers and felt unwell overall. She also believes that her left knee might be swelling. She denies chest pain, difficulty breathing, n/v/d or headaches. She states 1 of her children is sick with viral symptoms at home. Related Data Allergies Allergy/AdvReac Type Severity Reaction Status Date / Time Penicillins Allergy Mild Hives Verified 01/01/25 14:13 Exam 2 Narrative: APPEARANCE: Patient appears older than her stated age Head: atraumatic. EYES: EOMI, NOSE: Atraumatic NECK: Trachea midline RESPIRATORY: No increased rate of breathing, clear to auscultation CARDIOVASCULAR: tachycardic ABDOMINAL: soft, nondistended, nontender MUSCULOSKELETAl: focal exam left knee did not reveal a large effusion, erythema warmth. NEURO: Alert. paraplegic, can barely wiggle her toes on both feet. sensation intact. Right arm strength normal. Left arm 3/5. SKIN:: Ulceration to the back the left calf without surrounding cellulitis, stage I/II sacral decubitus ulcers PSYCHIATRIC: Normal affect Course Vital Signs Vital signs: Vital Signs Temperature 100.7 F H 02/07/25 02:36 Pulse Rate 119 H 02/07/25 02:36 Respiratory Rate 11 L 02/07/25 02:36 Blood Pressure 82/61 L 02/07/25 02:36 Pulse Oximetry 98 02/07/25 02:36 Oxygen Delivery Room Air 02/07/25 02:36 Temperature 104.1 F H 02/07/25 03:04 Pulse Rate 119 H 02/07/25 02:36 Respiratory Rate 12 02/07/25 02:41 Blood Pressure 82/61 L 02/07/25 02:36 Pulse Oximetry 99 02/07/25 02:41 Oxygen Delivery Room Air 02/07/25 02:36 Procedures Central Line Placement Left SC: Central Line Date: 02/07/25 Discussed w/ the patient/family/POA,the placement of a central venous catheter, including its clinical necessity/indication & associated potential risks, benifits and alternatives.: Yes The patient/family/POA understand(s) and acknowledge(s) the need to proceed with central venous catheter insertion as an important element of the patient's clinical management.: Yes Time Out Performed: Yes Patient Placed on Monitor/Pulse Ox: Yes Max. Sterile Barrier Technique: Caps, large sterile sheet and hand hygiene Central Line Prep: 2% chlorhexidine scrub Technique: sterile prep/drape Local Anesthetic: lidocaine 1% Amount of anesthesia used (mL): 5 Ultrasound Used for Placement: No Central Line Lumen Inserted: triple Post Procedure: sutured in place, good blood return, all ports aspirated, flushed, capped and sterile dressing applied Post Procedure X-Ray: tip of catheter in good position Patient Tolerated Procedure: well Complications: none Medical Decision Making MDM Narrative Medical decision making narrative: -Course: 50-year-old paraplegic with chronic indwelling Trejo presenting with fevers up to 104.1 She is tachycardic and hypotensive on arrival. Sepsis workup obtained. Patient given 30 cc/kilogram bolus, tylenol and started on ceftriaxone for suspected UTI will completing or workup. Records were requested from [facility] as it appears she has a complex medical history. Urine indicative infection. CT chest abdomen pelvis showed cystitis w/ ascending infection to the kidneys. On re-evaluation patient still hypotensive despite 30 cc/kilogram bolus. Left subclavian central line was placed and she started on nor epi. Case was discussed with . She will be placed in the ICU. Dr. Borges requested I switch her to meropenem. Further care per the ICU. -DDX includes but is not limited to: UTI, sepsis, pna, -Co-morbidities complicating care: paraplegia, chronic indwelling Trejo -Independent interpretation of studies: labs imaging reviewed Vital Signs Vital Signs: Vital Signs Temperature 100.7 F H 02/07/25 02:36 Pulse Rate 119 H 02/07/25 02:36 Respiratory Rate 11 L 02/07/25 02:36 Blood Pressure 82/61 L 02/07/25 02:36 Pulse Oximetry 98 02/07/25 02:36 Oxygen Delivery Room Air 02/07/25 02:36 Temperature 104.1 F H 02/07/25 03:04 Pulse Rate 119 H 02/07/25 02:36 Respiratory Rate 12 02/07/25 02:41 Blood Pressure 82/61 L 02/07/25 02:36 Pulse Oximetry 99 02/07/25 02:41 Oxygen Delivery Room Air 02/07/25 02:36 Lab Data 02/07/25 02:53 02/07/25 02:53 Labs: Lab Results 02/07/25 Range/Units 02:53 WBC 8.6 (4.5-10.0) K/mm3 RBC 4.16 L (4.2-5.4) M/mm3 Hgb 12.0 (12.0-15.0) g/dL Hct 37.3 (37.0-47.0) % MCV 89.7 (80-100) fl MCH 28.8 (26-34) pg MCHC 32.2 (32-36) g/dl RDW 14.6 H (11.5-14.5) % Plt Count 210 (150-375) k/mm3 MPV 8.7 (7.4-10.4) fl Immature Gran % (Auto) 0.7 H (0-0.5) % Neut % (Auto) 90.2 H (45.5-73.1) % Lymph % (Auto) 5.3 L (18.3-44.2) % [place] % (Auto) 3.6 (2.6-8.5) % Eos % (Auto) 0.1 (0-4.4) % Baso % (Auto) 0.1 L (0.2-1.2) % Lymph # (Auto) 0.46 L (0.9-3.2) K/mm3 [place] # (Auto) 0.3 (0.1-0.6) K/mm3 Eos # (Auto) 0.0 (0-0.3) K/mm3 Baso # (Auto) 0.0 (0.0-0.1) K/mm3 Abs Immat Gran (auto) 0.06 H (0.00-0.031) K/mm3 Absolute Neuts (auto) 7.8 H (1.3-6.7) K/mm3 Absolute Nucleated RBC 0.000 (0.0-0.012) K/mm3 Nucleated RBC % 0.0 (0.0-0.2) % PT 15.6 H (11.1-14.7) Seconds INR 1.2 APTT 30.5 (22.3-36.8) Seconds Sodium 136 L (137-145) mmol/L Potassium 4.2 (3.4-5.0) mmol/L Chloride 106 (98-107) mmol/L Carbon Dioxide 17 L (22-30) mmol/L Anion Gap 13 H (4-12) mmol/L BUN 39 H D (7-17) mg/dL Creatinine 0.93 (0.7-1.0) mg/dL Estim Creat Clear Calc Not Reportable Estimated GFR > 60 (59 - ) Glucose 149 H (65-110) mg/dL Lactic Acid 1.8 (0.7-2.0) mmol/L Calcium 8.4 (8.4-10.2) mg/dL Total Bilirubin 0.8 (0.2-1.3) mg/dL AST 28 (14-36) U/L ALT 20 (6-35) U/L Alkaline Phosphatase 96 (38-126) U/L C-Reactive Protein 1.8 H (<1.0) mg/dL Total Protein 8.2 (6.3-8.2) g/dL Albumin 4.2 (3.5-5.1) g/dL Urine Color Yellow (Yellow) Urine Appearance Cloudy H (Clear) Urine pH 7.5 (5.0-9.0) Ur Specific [place] 1.015 (1.001-1.035) Urine Protein Trace (Negative) mg/dL Urine Glucose (UA) Negative (Negative) mg/dL Urine Ketones Negative (Negative) mg/dL Ur Blood (Man) Negative (Negative) Urine Nitrate Negative (Negative) Urine Bilirubin Negative (Negative) Urine Urobilinogen 0.2 (<2.0) mg/dL Leukocyte Esterase Rfl 3+ H (Negative) ABBY/UL Urine RBC 0-2 (0-2) /hpf Urine WBC 21-50 H (0-3) /hpf Ur Squamous Epith Cells None seen (Few) /hpf Urine Bacteria 4+ H /hpf Urine Casts 0-2 Discharge Plan Discharge Clinical Impression: Septic shock, UTI (urinary tract infection) Patient Disposition: Still a Patient Condition: Stable Patient Language: Colombian Follow-up/Referrals: Dao Cabezas MD [Primary Care Provider, Hospitalist]
[2025-02-07] MEDS: cefTRIAXone 1 GM in SODIUM CHLORIDE 0.9% IV 50 ML 100 ML IVPB (03:52)
[2025-02-07] MEDS: HYDROmorphone HCL INJ (*CRX) 1 MG/ML SYR 0.5 MG IV PUSH (04:02)
[2025-02-07 04:45] LABS: Influenza A QL RT-PCR Negative (Negative); Influenza B QL RT-PCR Negative (Negative); RSV RNA, RT-PCR Negative (Negative); SARS-CoV-2 RNA PCR Negative (Negative)
--- NOTE | 2025-02-07 05:09 | PC.NURSE ---
MD Hubbard verbally states to grab central line supplies due to pt blood pressure being low after receiving 3L of LR. Pt blood pressure was 85/45. MD Hubbard verbally states to give IV nore-epi peripherally until central line placement is confirmed by radiology. Pt pressure is now 116/62 with nore-epi running at 5 mcg/min.
--- NOTE | 2025-02-07 05:14 | PC.NURSE ---
MD Hubbard verbally states central line is good for use.
[2025-02-07] MEDS: NOREPINEPHRINE 8 MG/D5W 250 ML 8 MG/250 ML BAG 9.38 MG IV CONT (05:17)
[2025-02-07] MEDS: MEROPENEM 1 GM in SODIUM CHLORIDE 0.9% IV 100 ML 200 ML IVPB ×3 (05:22→22:04)
--- NOTE | 2025-02-07 05:23 | PC.NURSE ---
Verbal consent was obtained by this RN and MD adler prior to inserting central line.
--- NOTE | 2025-02-07 06:30 | ADMGEN ---
This patient, Ashlee Lamas, was admitted to Intensive Care Unit-9. Patient/family oriented to hospital policies and general routines including ID bracelet, bed and alarms, visiting hours, pain management, procedures, bathroom and other care routines, personal items, smoking policy, room service/diet, and visiting hours. Information on how to activate the Rapid Response Team has been discussed. Patient/Family are encouraged to report perceived risks to care and to ask questions if they do not understand what they are told or what they should do.
--- NOTE | 2025-02-07 06:37 | WNDPHOTO ---
PHOTO ONLY - See Nursing Notes and/ or assessments for documentation.
--- NOTE | 2025-02-07 06:42 | PM.IMHP ---
H&P: HPI History of Present Illness Date/Time: 02/07/25 06:42 Chief Complaint: Fever Narrative: This is a 50-year-old female patient who is a paraplegic due to a surgical complication at an outside facility. The patient has had a chronic indwelling Ng catheter since July of this year. The patient stated she has no prior UTIs prior to having this chronic indwelling Ng catheter. The patient stated that her knowledge of the incident that caused her to be paralyzed is very vague. She stated that she did have cervical spinal surgery at [facility]. She stated that she can move her right arm and the left arm is limited. She can move her toes on the right leg it is to has feeling to both lower extremities. The patient stated that she developed of fever over 102 today. She feels fatigued. She denies any nausea vomiting or diarrhea. Her Ng catheter was no longer draining. Her blood pressure was low at 85/45. She has no elevated white count. Her sodium was 136 and her anion gap was 13. Her CRP is 1.8. UA shows 3+ leukocyte esterase, urine wbc's 21-50, urine bacteria 4+. Viral serology was negative. Patient was hypotensive with tachycardia. The patient some is septic and the credit underwriter has been notified per ED provider. She had been given a 30 cc/kilogram bolus in the emergency room she was also given Tylenol and started on ceftriaxone for the UTI. CT chest abdomen pelvis showed cystitis with ascending infection since the kidneys. The patient was started on norepinephrine after the central line was placed. The patient is being admitted to inpatient status on the date of service of 02/07/2025. Review of Systems Constitutional: Constitutional: Reports as per HPI and Reports no additional constitutional complaints Eyes: Eyes: Reports as per HPI and Reports no additional eye complaints ENT: Reports no additional ear, nose, mouth, and throat complaints and Reports Normal hearing present Cardiovascular: Cardiovascular: Reports no additional cardiovascular complaints Respiratory: Respiratory: Reports as per HPI and Reports no additional respiratory complaints Gastrointestinal: Gastrointestinal: Reports as per HPI and Reports no additional gastrointestinal complaints Genitourinary: Genitourinary: Reports no additional female genitourinary complaints Musculoskeletal: Musculoskeletal: Reports no additional musculoskeletal complaints Integumentary/Breasts: Skin/Breast: Reports system reviewed and no additional complaints, except as docu Neurologic: Reports no additional neurologic complaints and Reports Normal hearing present Psychiatric: Psychiatric: Reports no additional psychiatric complaints and Reports as per HPI Hematologic/Lymphatic: Hematologic/Lymphatic: Reports no additional hematologic/lymphatic complaints Allergic/Immunologic: Allergic/Immunologic: Reports no additional allergic/immunologic complaints [facility] Past Medical History Medical History Muscle spasticity Chronic indwelling Ng catheter Paraplegia Peripheral neuropathy Surgical History Surgical History H/O right wrist surgery H/O cervical spine surgery H/O right knee surgery Family History Family History Mother Congestive heart failure Diabetes mellitus Father Congestive heart failure Social History Social History Social History: She lives with her , 9-year-old daughter, and her sister. 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 Code status: Full code Years smoked: 20 Smoking status: Former smoker Tobacco type: cigarettes Alcohol intake: never Substance use: never Lack of Transportation: No Lack of Food: Never True Current Housing: I Have Housing Concerned About Future Housing: No Difficulty Paying Gas/Electric Bills: No Difficulty Paying for Meds: No Currently Unemployed: No Education: Grade School Difficulty w/ Childcare or Family Care: No Spiritual care concerns: No Meds Home Medications and Allergies Home Medications ?Medication ?Instructions ?Recorded ?Confirmed ?Type baclofen 10 mg tablet 10 mg PO Q8H 02/07/25 02/07/25 History gabapentin 400 mg capsule 800 mg PO Q8H 02/07/25 02/07/25 History lidocaine 5 % topical patch 2 patch transdermal Q12H 02/07/25 02/07/25 History Allergies Allergy/AdvReac Type Severity Reaction Status Date / Time Penicillins Allergy Mild Hives Verified 01/01/25 14:13 Vital Signs Vital Signs - 24 hr 02/07/25 02:36 02/07/25 02:41 02/07/25 03:04 Temperature 100.7 F H 104.1 F H Pulse Rate 119 H Respiratory Rate 11 L 12 Blood Pressure 82/61 L Pulse Oximetry 98 99 Oxygen Delivery Room Air 02/07/25 03:16 02/07/25 03:31 02/07/25 03:46 Temperature Pulse Rate 107 H 90 86 Respiratory Rate 22 H 14 13 Blood Pressure 83/53 L 98/64 L 97/53 L Pulse Oximetry 99 100 100 Oxygen Delivery 02/07/25 04:01 02/07/25 04:41 02/07/25 04:43 Temperature 98.7 F Pulse Rate 109 H 76 Respiratory Rate 15 10 L Blood Pressure 103/56 L 96/46 L Pulse Oximetry 97 99 Oxygen Delivery 02/07/25 04:44 02/07/25 04:46 02/07/25 04:55 Temperature Pulse Rate 75 73 75 Respiratory Rate 8 L 9 L 9 L Blood Pressure 87/51 L 89/48 L 85/45 L Pulse Oximetry 99 99 100 Oxygen Delivery 02/07/25 05:01 02/07/25 05:09 02/07/25 05:11 Temperature Pulse Rate 93 67 65 Respiratory Rate 14 10 L 11 L Blood Pressure 90/47 L 109/57 L 116/62 Pulse Oximetry 97 100 100 Oxygen Delivery 02/07/25 05:16 02/07/25 05:17 02/07/25 05:23 Temperature Pulse Rate 69 67 Respiratory Rate 12 13 Blood Pressure 129/67 85/45 L 107/58 L Pulse Oximetry 100 99 Oxygen Delivery 02/07/25 05:25 Temperature Pulse Rate 65 Respiratory Rate 13 Blood Pressure 107/58 L Pulse Oximetry 99 Oxygen Delivery Exam Const: General: cooperative, comfortable, no acute distress, well developed, awake and well nourished Nutritional Appearance: obese Orientation/consciousness: oriented to person, oriented to place, oriented to time and patient oriented x3 Limitations: no limitations HENMT: Head: normal to inspection, No palpable skull fracture present, normocephalic, atraumatic and abrasion Eyes: General: appearance normal, both eyes and all related structures Alignment and Position: alignment normal Periorbital: periorbital findings normal Neck: Neck: normal visual inspection, full ROM and no lymphadenopathy Chest: Chest palpation & inspection: normal inspection of the chest Resp: Effort & Inspection: normal respiratory effort Auscultation: clear to auscultation bilaterally Cardio: Palpation: normal PMI Rate: regular rate Rhythm: regular rhythm Heart sounds: S1 normal heart sound present and S2 normal heart sound present Peripheral pulses: Peripheral pulses 2+ throughout GI: Inspection: normal to inspection Auscultation: normal bowel sounds Urinary Catheter: Urinary Catheter: urine cloudy Back/Spine/Pelvis: Back: no CVA tenderness Skin: General skin exam: normal color Lesions: no lesions Rashes: no rashes Trauma: no lacerations or abrasions Wounds: no wounds Hair: normal Nails: normal Other: Dry skin to bilateral lower extremities Neuro: General: oriented to person, oriented to place, oriented to time and patient oriented x3 Other: The patient has full range of motion to the right arm motion due to pins and plate to her right wrist. She has full range of motion to the left arm and wrist but has limited motion to the shoulder. Left leg is flaccid in the right leg is flaccid but she is able to wiggle her great toe and 2nd toe. Extrem: General: normal to inspection Right upper extremity: normal to inspection and shoulder/upper arm Left upper extremity: normal to inspection Right lower extremity: normal to inspection Left lower extremity: normal to inspection Psych: Appearance: grossly normal Mental Status: mental status grossly normal Speech and movement: Normal speech and movement present Affect: normal affect Attitude: cooperative Thought process: Normal thought process present Thought content: Yes Normal thought content present Insight: Good insight present (Psych) Judgement: Good judgement present (Psych) H&P: Results Labs Labs: Short CBC 02/07/25 Range/Units 02:53 WBC 8.6 (4.5-10.0) K/mm3 Hgb 12.0 (12.0-15.0) g/dL Hct 37.3 (37.0-47.0) % Plt Count 210 (150-375) k/mm3 BMP 02/07/25 02:53 Sodium 136 L Potassium 4.2 Chloride 106 Carbon Dioxide 17 L BUN 39 H D Creatinine 0.93 Glucose 149 H Calcium 8.4 Liver Function 02/07/25 Range/Units 02:53 Total Bilirubin 0.8 (0.2-1.3) mg/dL AST 28 (14-36) U/L ALT 20 (6-35) U/L Alkaline Phosphatase 96 (38-126) U/L Albumin 4.2 (3.5-5.1) g/dL Urine 02/07/25 Range/Units 02:53 Urine Color Yellow (Yellow) Urine Appearance Cloudy H (Clear) Urine pH 7.5 (5.0-9.0) Ur Specific [place] 1.015 (1.001-1.035) Urine Protein Trace (Negative) mg/dL Urine Glucose (UA) Negative (Negative) mg/dL Imaging Chest x-ray: My impression: ITS Impressions Chest/Abdomen/Pelvis CT 02/07/25 07:15 IMPRESSION: 1. Mild right hydroureter and mild left hydronephrosis and hydroureter with bilateral urothelial enhancement, consistent with bilateral pyelitis. 2. Gallbladder distention, which may be secondary to fasting. Correlate with physical exam to exclude acute cholecystitis. 3. 3.5 cm left adrenal mass. 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 4. 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 Chest X-Ray 02/07/25 07:48 IMPRESSION: 1. No acute cardiopulmonary findings given portable technique. Chest X-Ray 02/07/25 07:51 IMPRESSION: 1. No pneumothorax or other acute cardiopulmonary findings given portable technique. Assessment and Plan Assessment and plan (1) Septic shock: Code(s): A41.9 - Sepsis, unspecified organism; R65.21 - Severe sepsis with septic shock Status: Acute Assessment and Plan: -the patient has a chronic indwelling Ng catheter since July of this year due to paralysis. The patient denied having any UTIs prior to the chronic indwelling Ng catheter. -the patient became hypotensive and had tachycardia. She stated that her temperature was over 102 at home. -the the credit underwriter has been notified per ED provider. -the patient was started on meropenem pending cultures. -continue to manage her lactic levels. -urinalysis reveals 3+ leukocyte esterase, wbc's 21-50, and urine bacteria 4+. -vasopressor support for central line that was placed per ED provider. -she received 3 L of IV bolus in the emergency room. (2) UTI (urinary tract infection): Code(s): N39.0 - Urinary tract infection, site not specified Status: Acute Assessment and Plan: --the patient has a chronic indwelling Ng catheter since July of this year due to paralysis. The patient denied having any UTIs prior to the chronic indwelling Ng catheter. -the patient became hypotensive and had tachycardia. She stated that her temperature was over 102 at home. -the the credit underwriter has been notified per ED provider. -the patient was started on meropenem pending cultures. -continue to manage her lactic levels. -urinalysis reveals 3+ leukocyte esterase, wbc's 21-50, and urine bacteria 4+. -vasopressor support for central line that was placed per ED provider. -she received 3 L of IV bolus in the emergency room. (3) Muscle spasticity: Code(s): M62.838 - Other muscle spasm Status: Acute Assessment and Plan: -home meds are on hold at this time. Baclofen is on hold. She does have lidocaine patches. -she will require PT OT evaluation when she is out of ICU. Quality VTE Prophylaxis VTE prophylaxis: mechanical ordered
[2025-02-07 06:45] LABS: MRSA (PCR) NOT DETECTED (NOT DETECTE)
[2025-02-07] MEDS: LACTATED RINGERS 1,000 ML 100 ML IV CONT ×2 (07:46→17:22)
--- NOTE | 2025-02-07 09:10 | P.CONIN_ITS ---
Assessment and Plan Assessment and plan (1) Septic shock: Code(s): A41.9 - Sepsis, unspecified organism; R65.21 - Severe sepsis with septic shock Status: Acute Assessment and Plan: UA suggestive UTI CT abdomen pelvis IMPRESSION: 1. Mild right hydroureter and mild left hydronephrosis and hydroureter with bilateral urothelial enhancement, consistent with bilateral pyelitis. 2. Gallbladder distention, which may be secondary to fasting. Correlate with physical exam to exclude acute cholecystitis. 3. 3.5 cm left adrenal mass. 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 4. 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 IV fluid bolus now followed by IV fluid infusion IV meropenem to cover for ESBL Ng change Blood and urine cultures Levophed titration to maintain mean arterial pressure (2) Chronic indwelling Ng catheter: Code(s): Z97.8 - Presence of other specified devices Status: Acute Assessment and Plan: Ng was changed in the ER (3) UTI (urinary tract infection): Code(s): N39.0 - Urinary tract infection, site not specified Status: Acute Assessment and Plan: See above (4) Paraparesis: Code(s): G82.20 - Paraplegia, unspecified Status: Acute Assessment and Plan: Continue muscle relaxant and peripheral neuropathy medications as per home regimen Obtain records from [facility] Plan DVT prophylaxis -Lovenox Nutrition -diet ordered Code Status - Full Code Total Critical Care Time - 30 minutes Due to a high probability of clinically significant, life threatening deterioration, the patient required my highest level of preparedness to intervene emergently and I personally spent this critical care time directly and personally managing the patient. This critical care time included obtaining a history; examining the patient; pulse oximetry; ordering and review of studies; arranging urgent treatment with development of a management plan; evaluation of patient's response to treatment; frequent reassessment; and discussions with other providers. It was exclusive of separately billable procedures and treating other patients and teaching time. Please see Assessment and Plan section and the rest of the note for further information on patient assessment and treatment Lead Javascript Engineer Consult Note Consult date: 02/07/25 Reason for consult: UTI, septic Shock HPI: Ashlee Lamas is a 50 year old female with past medical history of paraparesis and indwelling Ng since July of this year presented to ER with chief complaint of urinary catheter being blocked, fever, nausea and abdominal pain. Patient states that she has had UTIs in the past. Yesterday she noticed that her catheter was not draining. She started having fever and also some nausea but no vomiting. She also has some discomfort in the middle and lower part of abdomen. Prior to that she was feeling fine and denies any complaints. Review of system was positive for weakness in both legs, muscle spasms which are chronic. All the systems were reviewed and were negative . Evaluation in the ER showed blood pressure was low at 85/45. WBC was normal Her sodium was 136 and her anion gap was 13. Her CRP is 1.8. UA shows 3+ leukocyte esterase, urine wbc's 21-50, urine bacteria 4+. Viral serology was negative. Patient was hypotensive with tachycardia. CT chest abdomen pelvis showed cystitis with ascending infection since the kidneys. UA was consistent with UTI Patient was given IV fluid bolus and started on IV antibiotics and IV Levophed. Patient was admitted to ICU. At this time patient states she feels markedly better and denies any abdominal pain nausea or fever. All other systems were reviewed and were negative. Review of Systems 2 Review of Systems: All systems reviewed & are unremarkable except as noted in HPI and below (HPI) [facility] Past Medical History Medical History Muscle spasticity Chronic indwelling Ng catheter Paraplegia Peripheral neuropathy Surgical History Surgical History H/O right wrist surgery H/O cervical spine surgery H/O right knee surgery Family History Family History Mother Congestive heart failure Diabetes mellitus Father Congestive heart failure Social History Social History Social History: She lives with her , 9-year-old daughter, and her sister. She dominates her sister to be the durable power admitted attorneys for healthcare. Code status: Full code Alcohol intake: never Substance use: never Lack of Transportation: No Lack of Food: Never True Current Housing: I Have Housing Concerned About Future Housing: No Difficulty Paying Gas/Electric Bills: No Difficulty Paying for Meds: No Currently Unemployed: No Education: Grade School Difficulty w/ Childcare or Family Care: No Spiritual care concerns: No Meds Home Medications and Allergies Home Medications ?Medication ?Instructions ?Recorded ?Confirmed ?Type baclofen 10 mg tablet 10 mg PO Q8H PRN spasms 09/2602/07/25 History gabapentin 400 mg capsule 800 mg PO Q8H 02/07/2502/07 History lidocaine 5 % topical patch 2 patch transdermal Q12H 1 04/09/24 02/07/25 History Allergies Allergy/AdvReac Type Severity Reaction Status Date / Time Penicillins Allergy Mild Hives Verified 01/01/25 14:13 Vital Signs Vital Signs - 24 hr 02/07/25 02:36 02/07/25 02:41 02/07/25 03:04 Temperature 38.2 C H 40.1 C H Pulse Rate 119 H Respiratory Rate 11 L 12 Blood Pressure 82/61 L Pulse Oximetry 98 99 Oxygen Delivery Room Air 02/07/25 03:16 02/07/25 03:31 02/07/25 03:46 Temperature Pulse Rate 107 H 90 86 Respiratory Rate 22 H 14 13 Blood Pressure 83/53 L 98/64 L 97/53 L Pulse Oximetry 99 100 100 Oxygen Delivery 02/07/25 04:01 02/07/25 04:41 02/07/25 04:43 Temperature 37.1 C Pulse Rate 109 H 76 Respiratory Rate 15 10 L Blood Pressure 103/56 L 96/46 L Pulse Oximetry 97 99 Oxygen Delivery 02/07/25 04:44 02/07/25 04:46 02/07/25 04:55 Temperature Pulse Rate 75 73 75 Respiratory Rate 8 L 9 L 9 L Blood Pressure 87/51 L 89/48 L 85/45 L Pulse Oximetry 99 99 100 Oxygen Delivery 02/07/25 05:01 02/07/25 05:09 02/07/25 05:11 Temperature Pulse Rate 93 67 65 Respiratory Rate 14 10 L 11 L Blood Pressure 90/47 L 109/57 L 116/62 Pulse Oximetry 97 100 100 Oxygen Delivery 02/07/25 05:16 02/07/25 05:17 02/07/25 05:23 Temperature Pulse Rate 69 67 Respiratory Rate 12 13 Blood Pressure 129/67 85/45 L 107/58 L Pulse Oximetry 100 99 Oxygen Delivery 02/07/25 05:25 02/07/25 06:52 02/07/25 06:53 Temperature 37.1 C Pulse Rate 65 99 70 Respiratory Rate 13 18 Blood Pressure 107/58 L 111/64 111/64 Pulse Oximetry 99 99 Oxygen Delivery 02/07/25 07:00 02/07/25 07:47 02/07/25 08:00 Temperature Pulse Rate 69 61 61 Respiratory Rate 14 Blood Pressure 105/55 L 102/60 110/59 L Pulse Oximetry 100 Oxygen Delivery 02/07/25 08:30 02/07/25 08:47 Temperature Pulse Rate 61 67 Respiratory Rate Blood Pressure 103/61 100/64 Pulse Oximetry Oxygen Delivery Exam 2 Narrative: General: Pt is alert awake and in NAD Lungs/Chest: Trachea central Clear BS B/L, No crackles or wheezing. Cardiac: RRR. Normal S1 S2. No murmurs Circulation: Pedal pulses are intact and symmetrical. Abdomen: Normal bowel sounds.. Soft. NT. ND. Extremities: Bilateral edema present, dry skin, bilateral knees are swollen. Scar from past surgeries on both knees. No redness or tenderness in the knees. : Ng in place which is draining urine Neurologic: AO x3 PERRL, she is able to move toes on both feet and her touch sensation intact. She can follow commands with both upper extremities. Skin: No Rash Results Labs 02/07/25 02:53 02/07/25 02:53 Labs: Short CBC 02/07/25 Range/Units 02:53 WBC 8.6 (4.5-10.0) K/mm3 Hgb 12.0 (12.0-15.0) g/dL Hct 37.3 (37.0-47.0) % Plt Count 210 (150-375) k/mm3 [facility] 02/07/25 02:53 Sodium 136 L Potassium 4.2 Chloride 106 Carbon Dioxide 17 L BUN 39 H D Creatinine 0.93 Glucose 149 H Calcium 8.4 Liver Function 02/07/25 Range/Units 02:53 Total Bilirubin 0.8 (0.2-1.3) mg/dL AST 28 (14-36) U/L ALT 20 (6-35) U/L Alkaline Phosphatase 96 (38-126) U/L Albumin 4.2 (3.5-5.1) g/dL Urine 02/07/25 Range/Units 02:53 Urine Color Yellow (Yellow) Urine Appearance Cloudy H (Clear) Urine pH 7.5 (5.0-9.0) Ur Specific [place] 1.015 (1.001-1.035) Urine Protein Trace (Negative) mg/dL Urine Glucose (UA) Negative (Negative) mg/dL
[2025-02-07] MEDS: ENOXAPARIN 40 MG/0.4 ML SYRINGE SUB-Q (09:57)
[2025-02-07] MEDS: LIDOCAINE 5% PATCH 2 PATCH TRANSDERM (09:57)
[2025-02-07] MEDS: GABAPENTIN 400 MG CAPSULE 800 MG PO ×3 (09:57→22:03)
[2025-02-07] MEDS: BACLOFEN 10 MG TABLET PO ×2 (10:06→22:03)
[2025-02-07] MEDS: HYDROcodone/acetaminophen (*CRX) 5-325 MG TABLET 1 TAB PO ×2 (12:13→17:44)
[2025-02-07] MEDS: CENTRAL LINE FLUSH 10 ML IV PUSH ×2 (12:14→22:03)
--- OUTSIDE RECORDS SUMMARY | 2025-02-07 16:13 | XMS_ITS | Patient Health Record ---
Author Organization [facility] Address [address] [place] [address] Care Team Providers Care Histological Illustrator Name Role Phone Claudette Gaffney Primary Care Provider Dao Cabezas Unavailable [phone] Allergies Allergen (clinical drug ingredient) Drug/Non Drug Allergy documented on EMR Reaction Allergy Type Onset Date Status Penicillin Unknown Drug Allergy Active Reason For Referral Reason PREFERS [facility], FOR QUADRIPLEGIA, S/O CERVICAL SPINE SURGERY, LEFT ADHESIVE CAPSULITIS Diagnosis 1 Quadriplegia, unspec ified (G82.50) Referral Organization [facility] Referring Provider First Name Dao Referring Provider Last Name Jocelynn Referring Provider Speciality Internal edicine Referred Provider Specialty Physical The rapist General Notes Tacos Hernandez 01/02 11:57:12 AM >referral sent to [facility], Gallo DAMON, Re Richards 01/21/2025 01:26:56 PM >client called and reported she wanted referral to go to [facility] Day Therapy [phone] fax [phone] referral faxed Clinical Notes [facility] , P T, [address] [address] , P: [phone] , F: [phone] Referral Priority Routine Reason MONTHLY TREJO CHANGE , PREFERS [facility] Diagnosis [address] (Z97.8) Referral Organization [facility] Referring Provider First Name Dao Referring Provider Last Name Jocelynn Referring Provider Speciality Internal edicine Referred Provider Specialty Home Health Care General Notes Tacos Hernandez 01/02 12:09:21 PM >referral sent to [facility], Tacos Hernandez A 01/11/2025 01:49:31 PM >[facility] could not accept Pt due to low staff, Tacos Hernandez A 01/11/2025 01:55:25 PM >spoke with Pt to inform her she needs to contact her insurance to see where her insurance can cover Clinical Notes [facility] Home health Care , [address], [address] , [facility] [address] , P: [phone], F: [phone] Referral Priority Routine Reason PRESACRAL ULCER, HEA LING, NEEDS F/U WOUND CARE Diagnosis 1 Decubitus ulcer (L89 .90) Referral Organization [facility] Referring Provider First Name Dao Referring Provider Last Name Jocelynn Referring Provider Speciality Internal M edicine Referred Provider Specialty Wound Care General Notes Tacos Hernandez Deejay 01/02 01:41:53 PM >referral sent to [facility] Clinical Notes [facility] , [address], [place] [address] , P:[phone], F:[phone] Referral Priority Routine Medications Medication SIG (Take, Route, Frequency, Duration) Notes Start Date End Date Status Meloxicam 15 MG 1 tablet Orally Once a day; Duration: 30 days take with food 01/11/2025 Active oxyCODONE-Acetaminophen 5-325 MG 1 tablet as needed Orally daily; Duration: 30 days As needed severe pain 01/11/2025 Active Lidocaine & Adhesive Sheets 5 % (Patch) 1 topically Externally daily As needed low back pain, remove after 12 hours Active Gabapentin 800 MG 1 tablet Orally 3 ti mes a day Active Baclofen 10 MG 1 tablet as needed Orally 3 times a day As needed muscle spasms 12/17/2024 Active Calcium Carbonate Antacid 420 MG 2 tablets Orally Once a day; Duration: 30 days Active oxyBUTYnin Chloride ER 10 MG TAKE 1 TABLET BY MOUTH DAILY FOR URINARY INCONTINENCE; Duration: 30 days Active Social History Tobacco Use: Social History Observation Description Date Details (start date - stop date) Never Smoker NA - NA Sex Assigned At : Social History Observation Description Sex Assigned At Female Tobacco Control (Standard) Question Answer Notes Tobacco use: Nonsmoker Problems Problem Type SNOMED Code ICD Code Onset Dates Problem Status W/U Status Risk Notes Problem Quadriplegia (53232428) Quadriplegia, unspecified (G82.50) Active confirmed Problem Overweight (640202227) Over weight (E66.3) Active confirmed Problem Pressure injury (morphologic abnormality) (8441089605) Decubitus ulcer (L89.90) Active confirmed Problem Urinary catheter in situ (finding) (212432469) Urinary catheter in place (Z96.0) Active confirmed Problem Spasm of bladder (588248339) Bladder spasms (N32.89) Active confirmed Vital Signs Heart Rate 94 /min 01/11/2025 Temperature 99.1 degrees Fahrenheit 01/11/2025 Respiratory Rate 16 /min 01/11/2025 Oximetry 94 % 01/11/2025 Blood pressure diastolic 60 mm Hg 01/11/2025 Height 67.5 in in 01/11/2025 Blood pressure systolic 110 mm Hg 01/11/2025 Weight 200.0 lbs lbs 01/11/2025 BMI 30.86 kg/m2 01/11/2025 Encounters Encounter Location Date Provider Diagnosis [facility] [address] [place] [address] 12/17/2024 Dao Cabezas Quadriplegia, unspecified G82.50 ; Adhesive capsulitis of left shoulder M75.02 ; Trejo catheter in place Z97.8 and Decubitus ulcer L89.[address] [place] [address] 01/11/2025 Dao Cabezas Neuropathic pain M79.2 ; Adhesive capsulitis of left shoulder M75.02 ; Quadriplegia, unspecified G82.50 ; Bladder spasms N32.89 ; Over weight E66.3 and Urinary catheter in place Z96.0 [facility] [address] [place] [address] 10/12/2024 Claudette Gaffney Assessments Encounter Date Diagnosis (ICD Code) Assessment Notes Treatment Notes Treatment Clinical Notes Section Notes 12/17/2024 Quadriplegia, unspecified (ICD-10 - G82.50) 12/17/2024 Adhesive capsulitis of left shoulder (ICD-10 - M75.02) 01/11/2025 Adhesive capsulitis of left shoulder (ICD-10 - M75.02) 01/11/2025 Neuropathic pain (ICD-10 - M79.2) 12/17/[address] (ICD-10 - Z97.8) DISCUSSED WITH PATIENT AND SISTER THAT SHE LIKELY HAS ASYMTPOMATIC BACTERIURIA DUE TO TREJO AND THERE IS NO NEED TO CULTURE OR TREAT UNLESS SHE HAS SYMPTOMS 01/11/2025 Quadriplegia, unspecified (ICD-10 - G82.50) 12/17/2024 Decubitus ulcer (ICD-10 - L89.90) 01/11/2025 Bladder spasms (ICD-10 - N32.89) 01/11/2025 Over weight (ICD-10 - E66.3) 01/11/[address] (ICD-10 - Z96.0) 12/17/2024 Other KENNETH SIGNED FOR 2024 RECORDS FROM [facility] 01/11/2025 [facility] PDMP w/o issues Plan Of Treatment No Information Insurance Providers Payer Name Payer Address Payer Phone Subscriber Number Group Number Insured Name Patient Relationship to Insured Coverage Start Date Coverage End Date MEDICAID [address] [place] [address] [id number] Ashlee Lamas Self - patient is the insured Medical (General) History Medical History History ICD Code Asthma Neck surgery Surgical History Surgery Date(Month/Year) Knee surgery Neck Surgery Right wrist surgery Hospitalization History Reason Date(Month/Year) [facility] 2024 [facility] 2024 [facility] [place], [place] 2024
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
--- OUTSIDE RECORDS SUMMARY | 2025-02-07 16:13 | XMS_ITS | Clinical Summary ---
Author Organization [facility] Address [address] [place] [id number] Care Team Providers Care Director Of Corporate Communications Name Role Phone None, Provider MD Primary [...] HPV 01/14/2006 Mammogram Screening 2016 COVID-19 Vaccine (2024-2 6 season) 2024 Influenza Adult (#1) 2025 Hepatitis A Vaccines Aged Out No long er eligible based on patient's age to complete this topic Meningococcal B Vaccine Aged Out No l [...] complete this topic Insurance MEDICAID Care Teams Director Of Corporate Communications Relationship Specialty Start Date End Date None, Provider, PCP - General 12/18/18
[2025-02-08] VITALS (35 sets, daily range): BP systolic 84–142; BP diastolic 43–73; PULSE 45–106; RESP 11–21; TEMP 36.8–38.3; O2SAT 97–100
--- NOTE | 2025-02-08 | ECHO_ITS ---
Patient Info Name: Ashlee Lamas Age: 50 years : 1975 Gender: Female Ht: 67 in Wt: 203 lbs BSA: 2.12 m2 HR: 64 bpm BP: 112 / 51 mmHg Heart Rhythm: Sinus Rhythm Technical Quality: Fair Exam Date: 02/08/2025 3:23 PM Patient Status: I Admit Date: 02/07/2025 Exam Type: CA echo dop color flow w con Complete two-dimensional, color flow and Doppler transthoracic echocardiogram is performed with contrast to opacify the left ventricle and to improve the deliniation of the left ventricle endocardial borders. Staff Referring Physician: Cyrus Tam MD Ditch Tender: Damaris Nash Attending Provider: Vero Nunn Contrast/Agitated Saline Contrast/Ag. Saline: Definity Amount: 2.00 ml Administered By: Damaris Nash Existing IV Access: Yes IV Access Condition: patent with no signs of infiltration Summary 1. Definity contrast administered improved wall motion interpretation. 2. Left ventricular chamber dimension is normal. 3. Left ventricular systolic function is normal, estimated at 60-65. 4. The left ventricular diastolic function is normal. 5. E/e' 6 is not elevated. 6. Left atrial chamber dimension is moderately enlarged. 7. Right atrial chamber dimension is mildly enlarged. 8. There is trace tricuspid valve regurgitation. 9. No pulmonary hypertension, estimated pulmonary arterial systolic pressure is 26 mmHg. Left Ventricle E/e' 6 is not elevated. Left ventricular chamber dimension is normal. Left ventricular systolic function is normal, estimated at 60-65. The left ventricular diastolic function is normal. Definity contrast administered improved wall motion interpretation. Right Ventricle Right ventricular chamber dimension is normal. Right ventricular systolic function is normal and with normal TAPSE 3.2 cm. Left Atria Left atrial chamber dimension is moderately enlarged. Right Atria Right atrial chamber dimension is mildly enlarged. Aortic Valve The aortic valve is trileaflet. There is no aortic valve stenosis. There is no aortic valve regurgitation. Pulmonic Valve There is no pulmonic regurgitation. Mitral Valve There is no mitral valve stenosis. There is no mitral valve regurgitation. Tricuspid Valve There is trace tricuspid valve regurgitation. No pulmonary hypertension, estimated pulmonary arterial systolic pressure is 26 mmHg. Pericardium/Pleural There is no pericardial effusion. Inferior Vena Cava Normal inferior vena cava with >50% collapse upon inspiration consistent with normal right atrial pressure, 5 mmHg. Aorta The aortic root size at the sinus of Valsalva is normal. Left Ventricular Outflow Tract Name Value Normal LVOT 2D LVOT Diameter 2.0 cm LVOT Doppler LVOT Peak Velocity 135 cm/s LVOT Peak Gradient 7 mmHg LVOT Mean Gradient 4 mmHg LVOT VTI 26 cm LVOT VTI/AV VTI Ratio 0.7 LVOT Stroke Volume 86 ml LVOT CO 4.9 l/min LVOT CI 2.3 l/min/m2 Pulmonic Valve Name Value Normal RVOT Doppler RVOT Peak Velocity 88 cm/s RVOT Peak Gradient 3 mmHg PV Doppler PV Peak Velocity 122 cm/s PV Peak Gradient 6 mmHg Mitral Valve Name Value Normal MV Diastolic Function MV E Peak Velocity 90 cm/s MV A Peak Velocity 73 cm/s MV E/A 1.2 MV Decel Time (PW) 404 ms MV Annular TDI MV E/e' (Septal) 6.1 MV E/e' (Lateral) 6.9 MV E/e' (Average) 6.5 Tricuspid Valve Name Value Normal TV Regurgitation Doppler TR Peak Velocity 226 cm/s TR Peak Gradient 19 mmHg Estimated PAP/RSVP RA Pressure 5 mmHg <=5 PA Systolic Pressure 26 mmHg <36 RV Systolic Pressure 26 mmHg <36 TV Annular TDI TV Lateral Mary s' Velocity 19.2 cm/s >=9.5 Aorta Name Value Normal Ascending Aorta Ao Root Diameter (MM) 2.8 cm Ao Root Diam Index (MM) 1.3 cm/m2 Aortic Valve Name Value Normal AV Doppler AV Peak Velocity 194 cm/s AV Peak Gradient 15 mmHg AV Mean Gradient 9 mmHg AV VTI 35 cm AV Area (Cont Eq VTI) 2.5 cm2 >=3.0 AV Area (Cont Eq Harish) 2.3 cm2 AV DI (Harish) 0.70 AV Regurgitation 2D LVOT Area 3.3 cm2 Ventricles Name Value Normal LV Dimensions 2D/MM IVS Diastolic Thickness (2D) 0.9 cm 0.6-1.0 LVID Diastole (2D) 5.5 cm 3.8-5.2 LVIW Diastolic Thickness (2D) 0.9 cm 0.6-0.9 LVID Systole (2D) 3.9 cm 2.2-3.5 LVOT Diameter 2.0 cm LV Mass (2D Cubed) 183.67 g 67.00-162.00 LV Mass Index (2D Cubed) 87 g/m2 43-95 Relative Wall Thickness (2D) 0.32 <=0.42 LV Fractional Shortening/Ejection Fraction 2D/MM LV Fractional Shortening (2D) 29 % 27-45 LV EF (2D Teichholz) 55 % LV Diastolic Volume (4C MOD) 82 ml LV EF (4C MOD) 58 % LV Diastolic Volume (2C MOD) 96 ml LV EF (2C MOD) 60 % LV Diastolic Volume (BP MOD) 89 ml 46-106 LV Diastolic Volume Index (BP MOD) 42 ml/m2 29-61 LV Systolic Volume (BP MOD) 38 ml 14-42 LV Systolic Volume Index (BP MOD) 18 ml/m2 8-24 LV EF (BP MOD) 58 % 54-74 LV Diastolic Length (4C) 9.3 cm LV Systolic Length (4C) 7.4 cm LV Stroke Volume (4C MOD) 47 ml Atria Name Value Normal LA Dimensions LA Dimension (MM) 4.9 cm 2.7-3.8 LA Volume (4C A-L) 99 ml LA Volume (BP A-L) 110 ml RA Dimensions RA Area (4C) 21.3 cm2 <=18.0 Report Signatures
[2025-02-08] MEDS: LACTATED RINGERS 1,000 ML 100 ML IV CONT (02:17)
[2025-02-08] MEDS: HYDROcodone/acetaminophen (*CRX) 5-325 MG TABLET 1 TAB PO ×5 (02:17→23:50)
[2025-02-08 05:01] LABS: Hematocrit 26.3 % (37.0-47.0); Hemoglobin 8.5 g/dL (12.0-15.0); Immature Granulocyte Percent A 1.1 % (0-0.5); Lymphocytes Absolute Auto 0.76 K/mm3 (0.9-3.2); Mean Corpuscular HGB Conc 32.3 g/dl (32-36); Mean Corpuscular Hemoglobin 28.8 pg (26-34); Mean Corpuscular Volume 89.2 fl (80-100); Nucleated Red Blood Cells Absolute Auto 0.000 K/mm3 (0.0-0.012); Nucleated Red Blood Cells Perc 0.0 % (0.0-0.2); Platelet Count Result 143 k/mm3 (150-375); Red Blood Count 2.95 M/mm3 (4.2-5.4); White Blood Count 9.3 K/mm3 (4.5-10.0)
[2025-02-08 05:17] LABS: Alanine Aminotransferase 12 U/L (6-35); Albumin Level 3.2 g/dL (3.5-5.1); Alkaline Phosphatase 60 U/L (38-126); Anion Gap 8 mmol/L (4-12); Aspartate Amino Transferase 19 U/L (14-36); Bilirubin,Total 0.4 mg/dL (0.2-1.3); Blood Urea Nitrogen 32 mg/dL (7-17); Calcium 7.9 mg/dL (8.4-10.2); Carbon Dioxide 23 mmol/L (22-30); Chloride 106 mmol/L (98-107); Estimated CRCL calculation 124 ml/min; Estimated Glomerular Filt Rate > 60; Glucose 91 mg/dL (65-110); Magnesium 1.7 mg/dL (1.6-2.3); Potassium 3.2 mmol/L (3.4-5.0); Sodium 137 mmol/L (137-145); Total Protein 6.3 g/dL (6.3-8.2)
[2025-02-08] MEDS: BACLOFEN 10 MG TABLET PO ×3 (06:19→21:09)
[2025-02-08] MEDS: GABAPENTIN 400 MG CAPSULE 800 MG PO ×3 (06:28→21:09)
[2025-02-08] MEDS: MEROPENEM 1 GM in SODIUM CHLORIDE 0.9% IV 100 ML 200 ML IVPB ×3 (06:29→21:08)
[2025-02-08] MEDS: CENTRAL LINE FLUSH 10 ML IV PUSH ×3 (06:30→21:09)
[2025-02-08] MEDS: ENOXAPARIN 40 MG/0.4 ML SYRINGE SUB-Q (08:54)
[2025-02-08] MEDS: LIDOCAINE 5% PATCH 2 PATCH TRANSDERM (08:54)
[2025-02-08] MEDS: POTASSIUM CHLORIDE 20 MEQ ER TABLET 40 MEQ PO (08:57)
--- NOTE | 2025-02-08 09:57 | ECG_ITS ---
Test Date: 2025-02-08 10:12:09 Measurements Intervals [place] Rate: 81 P: 3 UT: 193 QRS: -15 QRSD: 111 T: 0 QT: 410 QTc: 479 Interpretive Statements SINUS RHYTHM INTRAVENTRICULAR CONDUCTION DELAY NONSPECIFIC T-WAVE ABNORMALITY Electronically Signed On 02-08-2025 12:40:18 INK PRINTER by Bora Bishop D.O
[2025-02-08 10:59] LABS: Troponin I 0.146 ng/mL (0.000-0.034)
[2025-02-08] MEDS: ASPIRIN 325 MG ENTERIC TABLET PO (11:48)
--- NOTE | 2025-02-08 12:03 | PCFNICU ---
ICU Rounding Note: Pt current nutrition is Regular with Nimesh BID. Last recorded weight is 92.5 kg, stable Bowel Motility: NO BM reported Labs Reviewed: BUN 32, Cr 0.54, Alb 3.2, Hgb 8.5, K 3.2 Meds Noted:LR Skin: Stage II sacrum Additional Notes: Patient is tolerating a regular diet with Nimesh BID (90kcal/7 gm glutamine/7 gm arginine/2.5 gm protein) for wound healing. Agree with diet orders. Following daily in ICU rounds. Will monitor weight, labs, skin, diet orders, meds every 5 days.
[2025-02-08] MEDS: ACETAMINOPHEN 325 MG TABLET 650 MG PO (12:32)
--- NOTE | 2025-02-08 13:20 | WPDINTPN ---
Progress Note: A&P Assessment and Plan (1) Septic shock: Code(s): A41.9 - Sepsis, unspecified organism; R65.21 - Severe sepsis with septic shock Status: Acute Assessment and Plan: UA suggestive UTI CT abdomen pelvis IMPRESSION: 1. Mild right hydroureter and mild left hydronephrosis and hydroureter with bilateral urothelial enhancement, consistent with bilateral pyelitis. 2. Gallbladder distention, which may be secondary to fasting. Correlate with physical exam to exclude acute cholecystitis. 3. 3.5 cm left adrenal mass. 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 4. 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 Received adequate fluid resuscitation -will discontinue maintenance IV fluid IV meropenem to cover for ESBL Ng change Blood and urine cultures Off Levophed (2) Chronic indwelling Ng catheter: Code(s): Z97.8 - Presence of other specified devices Status: Acute Assessment and Plan: Ng was changed in the ER (3) UTI (urinary tract infection): Code(s): N39.0 - Urinary tract infection, site not specified Status: Acute Assessment and Plan: See above (4) Paraparesis: Code(s): G82.20 - Paraplegia, unspecified Status: Acute Assessment and Plan: Continue muscle relaxant and peripheral neuropathy medications as per home regimen Obtain records from [facility] (5) Chest pain: Code(s): R07.9 - Chest pain, unspecified Status: Acute Assessment and Plan: Patient complains chest pain, along with some shortness of breath, was given aspirin -EKG showed intraventricular conduction delay -mild elevation in troponin, could be related to type 2 infarct secondary to septic shock and infection -will repeat troponin level -have Cardiology evaluate the patient if 2nd troponin is increasing. -patient also requesting for more pain medications Plan DVT prophylaxis -Lovenox Nutrition -diet ordered Code Status - Full Code Total Critical Care Time - 32 minutes Due to a high probability of clinically significant, life threatening deterioration, the patient required my highest level of preparedness to intervene emergently and I personally spent this critical care time directly and personally managing the patient. This critical care time included obtaining a history; examining the patient; pulse oximetry; ordering and review of studies; arranging urgent treatment with development of a management plan; evaluation of patient's response to treatment; frequent reassessment; and discussions with other providers. It was exclusive of separately billable procedures and treating other patients and teaching time. Please see Assessment and Plan section and the rest of the note for further information on patient assessment and treatment Subjective Date/time seen: 02/08/25 13:20 Interval history: Reason for consult: Septic shock, UTI, 02/08/2025: Patient seen examined the ICU, is awake, alert, oriented, complains of chest pain, shortness on breath, EKG showed intraventricular conduction delay, slight elevation in troponin, will was given aspirin. Patient is complaining of pain and requests more pain medications like of oxycodone. Hemodynamically stable, afebrile, adequate urine output. Off Levophed. Remains on maintenance IV fluids there was started on admission Review of Systems Review of Systems: All systems reviewed & are unremarkable except as noted in HPI and below (HPI) Exam Narrative: General: Pt is alert awake and in NAD Lungs/Chest: Trachea central Clear BS B/L, No crackles or wheezing. Cardiac: RRR. Normal S1 S2. No murmurs Circulation: Pedal pulses are intact and symmetrical. Abdomen: Normal bowel sounds.. Soft. NT. ND. Extremities: Bilateral edema present, dry skin, bilateral knees are swollen. Scar from past surgeries on both knees. No redness or tenderness in the knees. : Ng in place which is draining urine Neurologic: AO x3 PERRL, she is able to move toes on both feet and her touch sensation intact. She can follow commands with both upper extremities. Skin: No Rash Objective Data Vital Signs Vital Signs: Vital Signs - 24 hr 02/07/25 13:30 02/07/25 14:00 02/07/25 14:00 Temperature Pulse Rate 41 L 41 L 41 L Respiratory Rate 11 L Blood Pressure 114/46 L 100/59 L Pulse Oximetry 100 Oxygen Delivery 02/07/25 14:00 02/07/25 15:00 02/07/25 16:00 Temperature Pulse Rate 41 L 41 L 47 L Respiratory Rate 11 L Blood Pressure 100/59 L 98/51 L 101/58 L Pulse Oximetry 100 Oxygen Delivery 02/07/25 16:00 02/07/25 17:00 02/07/25 18:00 Temperature 98.9 F Pulse Rate 47 L 41 L 49 L Respiratory Rate 12 12 Blood Pressure 101/58 L 95/55 L Pulse Oximetry 100 100 Oxygen Delivery 02/07/25 18:00 02/07/25 18:06 02/07/25 18:20 Temperature Pulse Rate 48 L 48 L 62 Respiratory Rate 13 Blood Pressure 118/62 118/62 94/50 L Pulse Oximetry 100 Oxygen Delivery 02/07/25 18:46 02/07/25 19:00 02/07/25 19:00 Temperature 98.3 F Pulse Rate 61 44 L 57 L Respiratory Rate 14 Blood Pressure 85/47 L 111/58 L 111/58 L Pulse Oximetry 100 Oxygen Delivery 02/07/25 19:51 02/07/25 19:52 02/07/25 20:00 Temperature 98.6 F Pulse Rate 44 L 46 L 50 L Respiratory Rate 14 12 Blood Pressure 110/55 L Pulse Oximetry 100 100 Oxygen Delivery Room Air 02/07/25 20:00 02/07/25 21:00 02/07/25 21:32 Temperature Pulse Rate 47 L 53 L 49 L Respiratory Rate 12 Blood Pressure 110/55 L 91/45 L 89/44 L Pulse Oximetry 100 Oxygen Delivery 02/07/25 22:00 02/07/25 22:00 02/07/25 22:00 Temperature Pulse Rate 47 L 47 L 47 L Respiratory Rate 12 Blood Pressure 94/51 L Pulse Oximetry 100 Oxygen Delivery 02/07/25 23:00 02/08/25 00:00 02/08/25 00:00 Temperature Pulse Rate 48 L 48 L 49 L Respiratory Rate 13 13 Blood Pressure 98/58 L Pulse Oximetry 100 100 Oxygen Delivery Room Air 02/08/25 00:00 02/08/25 00:00 02/08/25 01:00 Temperature 98.2 F Pulse Rate 55 L 48 L 51 L Respiratory Rate 13 13 Blood Pressure 97/55 L 97/55 L 101/52 L Pulse Oximetry 100 100 Oxygen Delivery 02/08/25 02:00 02/08/25 02:00 02/08/25 02:00 Temperature 98.2 F Pulse Rate 86 56 L 56 L Respiratory Rate 14 Blood Pressure 106/52 L 94/52 L Pulse Oximetry 100 Oxygen Delivery 02/08/25 03:00 02/08/25 04:00 02/08/25 04:00 Temperature Pulse Rate 56 L 56 L 56 L Respiratory Rate 15 15 Blood Pressure 101/63 Pulse Oximetry 100 100 Oxygen Delivery Room Air 02/08/25 04:00 02/08/25 04:00 02/08/25 05:00 Temperature 98.2 F 98.2 F Pulse Rate 62 72 76 Respiratory Rate 16 16 Blood Pressure 112/52 L 112/52 L 103/50 L Pulse Oximetry 100 100 Oxygen Delivery 02/08/25 06:00 02/08/25 06:00 02/08/25 06:00 Temperature 98.6 F Pulse Rate 74 74 74 Respiratory Rate 16 Blood Pressure 103/52 L 103/52 L Pulse Oximetry 99 Oxygen Delivery 02/08/25 08:00 02/08/25 08:00 02/08/25 09:00 Temperature 100.5 F H 100.5 F H Pulse Rate 75 76 79 Respiratory Rate 14 15 Blood Pressure 97/55 L 97/55 L 93/63 L Pulse Oximetry 99 99 Oxygen Delivery 02/08/25 10:00 02/08/25 10:00 02/08/25 11:00 Temperature 100.5 F H 100.6 F H Pulse Rate 80 83 76 Respiratory Rate 11 L 14 Blood Pressure 138/65 138/65 98/49 L Pulse Oximetry 98 98 Oxygen Delivery 02/08/25 12:00 02/08/25 12:32 02/08/25 13:00 Temperature 101.0 F H 101 F H 99.6 F Pulse Rate 63 72 Respiratory Rate 17 18 Blood Pressure 99/52 L 102/48 L Pulse Oximetry 100 100 Oxygen Delivery Intake/Output Intake/Output: Intake & Output 02/05/25 02/06/25 02/07/25 02/08/25 23:59 23:59 23:59 23:59 Intake Total 4971.9 2158.5 Output Total 3350 750 Balance 1621.9 1408.5 Meds/Results Medications: Active Medications Generic Name Dose Route Start Last Admin Trade Name Freq PRN Reason Stop Dose Admin Acetaminophen 650 mg 02/08/25 12:13 02/08/25 12:32 Acetaminophen 325 Mg Tablet PO 650 mg Q4H PRN Administration Mild Pain (1-3) or Fever Hydrocodone Bitart/Acetaminophen 1 tab 02/07/25 10:09 02/08/25 08:53 Hydrocodone/Acetaminophen (*Crx) 5-325 Mg Tablet PO 1 tab Q4H PRN Administration Pain Rated 4-6 Baclofen 10 mg 02/07/25 22:00 02/08/25 06:19 Baclofen 10 Mg Tablet PO 10 mg Q8HR MATTHEW Administration Enoxaparin Sodium 40 mg 02/07/25 09:00 02/08/25 08:54 Enoxaparin 40 Mg/0.4 Ml Syringe SUB-Q 40 mg DAILY MATTHEW Administration Gabapentin 800 mg 02/07/25 09:00 02/08/25 06:28 Gabapentin 400 Mg Capsule PO 800 mg Q8HR MATTHEW Administration Norepinephrine Bitartrate 8 mg in 250 mls @ 0 mls/hr 02/07/25 05:00 02/08/25 10:00 Levophed 8 Mg/D5w 250 Ml IV CONT 0 mcg/min .Q0M MATTHEW 0 mls/hr Protocol Titration Meropenem 1 gm/ Sodium 100 mls @ 200 mls/hr 02/07/25 13:00 02/08/25 06:29 Chloride IVPB 200 mls/hr Q8HR MATTHEW Administration Lidocaine 2 patch 02/07/25 09:00 02/08/25 08:54 Lidocaine 5% Patch TRANSDERM 2 patch QAM MATTHEW Administration Sodium Chloride 10 ml 02/07/25 14:00 02/08/25 06:30 Central Line Flush IV PUSH 10 ml Q8HR MATTHEW Administration Sodium Chloride 20 ml 02/07/25 06:45 Central Line Flush IV PUSH PRN PRN after blood draws Radiology Results: ITS Impressions Chest/Abdomen/Pelvis CT 02/07/25 07:15 IMPRESSION: 1. Mild right hydroureter and mild left hydronephrosis and hydroureter with bilateral urothelial enhancement, consistent with bilateral pyelitis. 2. Gallbladder distention, which may be secondary to fasting. Correlate with physical exam to exclude acute cholecystitis. 3. 3.5 cm left adrenal mass. 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 4. 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 Chest X-Ray 02/08/25 10:45 IMPRESSION: 1. Mild bibasilar atelectasis. Labs Labs: Laboratory Results - last 24 hr 02/08/25 02/08/25 04:44 10:06 WBC 9.3 RBC 2.95 L Hgb 8.5 L D Hct 26.3 L MCV 89.2 MCH 28.8 MCHC 32.3 RDW 14.9 H Plt Count 143 L MPV 8.4 Immature Gran % (Auto) 1.1 H Neut % (Auto) 85.6 H Lymph % (Auto) 8.2 L [place] % (Auto) 3.6 Eos % (Auto) 1.3 Baso % (Auto) 0.2 Lymph # (Auto) 0.76 L [place] # (Auto) 0.3 Eos # (Auto) 0.1 Baso # (Auto) 0.0 Abs Immat Gran (auto) 0.10 H Absolute Neuts (auto) 7.9 H Absolute Nucleated RBC 0.000 Nucleated RBC % 0.0 Sodium 137 Potassium 3.2 L Chloride 106 Carbon Dioxide 23 Anion Gap 8 BUN 32 H Creatinine 0.54 L Estim Creat Clear Calc 124 Estimated GFR > 60 Glucose 91 Lactic Acid 0.6 L Calcium 7.9 L Phosphorus 2.7 Magnesium 1.7 Total Bilirubin 0.4 AST 19 ALT 12 Alkaline Phosphatase 60 Troponin I 0.146 H* Total Protein 6.3 Albumin 3.2 L Quality VTE Prophylaxis VTE prophylaxis: mechanical ordered
[2025-02-08 14:27] LABS: Troponin I 0.122 ng/mL (0.000-0.034)
--- NOTE | 2025-02-08 15:12 | PM.CNOR ---
Assessment and Plan Assessment and plan (1) Paraplegia: Code(s): G82.20 - Paraplegia, unspecified Status: Acute (2) Muscle spasticity: Code(s): M62.838 - Other muscle spasm Status: Acute (3) Arthritis of left knee: Code(s): M17.12 - Unilateral primary osteoarthritis, left knee Status: Acute Plan Left knee arthritis and paraplegia. History of left knee arthroscopy. No signs of infection at this time. Difficult situation with the knee given the arthritic change and subluxation. No signs of acute injury or pathology. No indication for aspiration or injection. Please call me if you have further questions. Thank you for the consultation. History of Present Illness HPI Consult date: 02/08/25 Chief complaint: Septic Shock Narrative: 50-year-old female with complex medical and orthopedic history admitted to the intensive care unit with sepsis. Consult regarding left knee findings. Currently the patient's knee symptoms are stable. She is nonambulatory. She states she is regaining some slight motor function. She reports that she had arthroscopy of the left knee due to suspected infection. She states that she developed paraplegia and was transferred to tertiary care center where she underwent cervical surgery. She was then transferred to a rehabilitation hospital. Currently nonambulatory. She is starting to regain subtle motor function. Review of Systems Review of Systems: All systems reviewed & are unremarkable except as noted in HPI and below PMFSH Past Medical History Medical History Muscle spasticity Chronic indwelling Ng catheter Paraplegia Peripheral neuropathy Surgical History Surgical History H/O right wrist surgery H/O cervical spine surgery H/O right knee surgery Family History Family History Mother Congestive heart failure Diabetes mellitus Father Congestive heart failure Social History Social History Social History: She lives with her , 9-year-old daughter, and her sister. 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 Code status: Full code Years smoked: 20 Smoking status: Former smoker Tobacco type: cigarettes Alcohol intake: never Substance use: never Lack of Transportation: No Lack of Food: Never True Current Housing: I Have Housing Concerned About Future Housing: No Difficulty Paying Gas/Electric Bills: No Difficulty Paying for Meds: No Currently Unemployed: No Education: Grade School Difficulty w/ Childcare or Family Care: No Spiritual care concerns: No Meds Home Medications and Allergies Home Medications ?Medication ?Instructions ?Recorded ?Confirmed ?Type baclofen 10 mg tablet 10 mg PO Q8H 02/07/25 02/07/25 History gabapentin 400 mg capsule 800 mg PO Q8H 02/07/25 02/07/25 History lidocaine 5 % topical patch 2 patch transdermal Q12H 02/07/25 02/07/25 History Allergies Allergy/AdvReac Type Severity Reaction Status Date / Time Penicillins Allergy Mild Hives Verified 01/01/25 14:13 Vital Signs Vital Signs - 24 hr 02/07/25 16:00 02/07/25 16:00 02/07/25 17:00 Temperature 37.2 C Pulse Rate 47 L 47 L 41 L Respiratory Rate 12 12 Blood Pressure 101/58 L 101/58 L 95/55 L Pulse Oximetry 100 100 Oxygen Delivery 02/07/25 18:00 02/07/25 18:00 02/07/25 18:06 Temperature Pulse Rate 49 L 48 L 48 L Respiratory Rate 13 Blood Pressure 118/62 118/62 Pulse Oximetry 100 Oxygen Delivery 02/07/25 18:20 02/07/25 18:46 02/07/25 19:00 Temperature Pulse Rate 62 61 44 L Respiratory Rate Blood Pressure 94/50 L 85/47 L 111/58 L Pulse Oximetry Oxygen Delivery 02/07/25 19:00 02/07/25 19:51 02/07/25 19:52 Temperature 36.8 C Pulse Rate 57 L 44 L 46 L Respiratory Rate 14 14 Blood Pressure 111/58 L Pulse Oximetry 100 100 Oxygen Delivery Room Air 02/07/25 20:00 02/07/25 20:00 02/07/25 21:00 Temperature 37.0 C Pulse Rate 50 L 47 L 53 L Respiratory Rate 12 12 Blood Pressure 110/55 L 110/55 L 91/45 L Pulse Oximetry 100 100 Oxygen Delivery 02/07/25 21:32 02/07/25 22:00 02/07/25 22:00 Temperature Pulse Rate 49 L 47 L 47 L Respiratory Rate Blood Pressure 89/44 L Pulse Oximetry Oxygen Delivery 02/07/25 22:00 02/07/25 23:00 02/08/25 00:00 Temperature Pulse Rate 47 L 48 L 48 L Respiratory Rate 12 13 13 Blood Pressure 94/51 L 98/58 L Pulse Oximetry 100 100 100 Oxygen Delivery Room Air 02/08/25 00:00 02/08/25 00:00 02/08/25 00:00 Temperature 36.8 C Pulse Rate 49 L 55 L 48 L Respiratory Rate 13 Blood Pressure 97/55 L 97/55 L Pulse Oximetry 100 Oxygen Delivery 02/08/25 01:00 02/08/25 02:00 02/08/25 02:00 Temperature Pulse Rate 51 L 86 56 L Respiratory Rate 13 Blood Pressure 101/52 L 106/52 L Pulse Oximetry 100 Oxygen Delivery 02/08/25 02:00 02/08/25 03:00 02/08/25 04:00 Temperature 36.8 C Pulse Rate 56 L 56 L 56 L Respiratory Rate 14 15 15 Blood Pressure 94/52 L 101/63 Pulse Oximetry 100 100 100 Oxygen Delivery Room Air 02/08/25 04:00 02/08/25 04:00 02/08/25 04:00 Temperature 36.8 C Pulse Rate 56 L 62 72 Respiratory Rate 16 Blood Pressure 112/52 L 112/52 L Pulse Oximetry 100 Oxygen Delivery 02/08/25 05:00 02/08/25 06:00 02/08/25 06:00 Temperature 36.8 C Pulse Rate 76 74 74 Respiratory Rate 16 Blood Pressure 103/50 L 103/52 L Pulse Oximetry 100 Oxygen Delivery 02/08/25 06:00 02/08/25 08:00 02/08/25 08:00 Temperature 37.0 C 38.1 C H Pulse Rate 74 75 76 Respiratory Rate 16 14 Blood Pressure 103/52 L 97/55 L 97/55 L Pulse Oximetry 99 99 Oxygen Delivery 02/08/25 08:00 02/08/25 09:00 02/08/25 10:00 Temperature 38.1 C H Pulse Rate 73 79 80 Respiratory Rate 15 Blood Pressure 93/63 L 138/65 Pulse Oximetry 99 Oxygen Delivery 02/08/25 10:00 02/08/25 10:00 02/08/25 11:00 Temperature 38.1 C H 38.1 C H Pulse Rate 83 106 H 76 Respiratory Rate 11 L 14 Blood Pressure 138/65 98/49 L Pulse Oximetry 98 98 Oxygen Delivery 02/08/25 12:00 02/08/25 12:00 02/08/25 12:32 Temperature 38.3 C H 38.3 C H Pulse Rate 63 66 Respiratory Rate 17 Blood Pressure 99/52 L Pulse Oximetry 100 Oxygen Delivery 02/08/25 13:00 02/08/25 14:00 02/08/25 14:00 Temperature 37.6 C 37.2 C Pulse Rate 72 63 64 Respiratory Rate 18 16 Blood Pressure 102/48 L 112/51 L Pulse Oximetry 100 100 Oxygen Delivery Exam Narrative: Alert and oriented x3. Appears comfortable. Both knees with moderate flexion contractures. Mild effusion. No significant synovitis, warmth, or erythema. Gentle motion, though limited, is well tolerated at the bedside. Left knee shows mild posterior subluxation of the tibia on the femur. Radiographs of the left knee show anterior subluxation of the femur relative to the tibia. Significant erosive changes. Mild effusion. Degenerative changes and erosion along the tibial surface. Results Labs 02/08/25 04:44 02/08/25 04:44 Labs: Abnormal lab results 02/08/25 02/08/25 02/08/25 Range/Units 04:44 10:06 13:48 RBC 2.95 L (4.2-5.4) M/mm3 Hgb 8.5 L D (12.0-15.0) g/dL Hct 26.3 L (37.0-47.0) % RDW 14.9 H (11.5-14.5) % Plt Count 143 L (150-375) k/mm3 Immature Gran % (Auto) 1.1 H (0-0.5) % Neut % (Auto) 85.6 H (45.5-73.1) % Lymph % (Auto) 8.2 L (18.3-44.2) % Lymph # (Auto) 0.76 L (0.9-3.2) K/mm3 Abs Immat Gran (auto) 0.10 H (0.00-0.031) K/mm3 Absolute Neuts (auto) 7.9 H (1.3-6.7) K/mm3 Potassium 3.2 L (3.4-5.0) mmol/L BUN 32 H (7-17) mg/dL Creatinine 0.54 L (0.7-1.0) mg/dL Lactic Acid 0.6 L (0.7-2.0) mmol/L Calcium 7.9 L (8.4-10.2) mg/dL Troponin I 0.146 H* 0.122 H* (0.000-0.034) ng/mL Albumin 3.2 L (3.5-5.1) g/dL H & H 02/07/25 02/08/25 Range/Units 02:53 04:44 Hgb 12.0 8.5 L D (12.0-15.0) g/dL Hct 37.3 26.3 L (37.0-47.0) % Coagulation 02/07/25 Range/Units 02:53 INR 1.2 All other labs normal.
[2025-02-08] MEDS: PERFLUTREN LIPID MICROSPHERES 1.5 ML VIAL DILUTED TO 10 ML TOTAL VOLUME IV PUSH (16:00)
--- NOTE | 2025-02-08 16:18 | IVDEFINITY ---
Prior to administration of IV Definity the patient was educated on the risks and benefits of the imaging enhancing agent including potential adverse side effects. The patient verbalized understanding. Allergies were verified. No exclusion criteria were identified and at least one of the following inclusion criteria were met: 1) physician request, 2) patient technically difficult to image (per the [place] [employer] guidelines of two or more segments not discernable within the apical view), or 3) questionable left ventricular function. ?
[2025-02-08 19:23] LABS: Troponin I 0.101 ng/mL (0.000-0.034)
[2025-02-09] VITALS (26 sets, daily range): BP systolic 91–129; BP diastolic 51–79; PULSE 47–83; RESP 12–23; TEMP 36.4–39.2; O2SAT 97–100
[2025-02-09 04:42] LABS: Hematocrit 27.7 % (37.0-47.0); Hemoglobin 8.7 g/dL (12.0-15.0); Immature Granulocyte Percent A 0.8 % (0-0.5); Lymphocytes Absolute Auto 0.79 K/mm3 (0.9-3.2); Mean Corpuscular HGB Conc 31.4 g/dl (32-36); Mean Corpuscular Hemoglobin 28.7 pg (26-34); Mean Corpuscular Volume 91.4 fl (80-100); Nucleated Red Blood Cells Absolute Auto 0.000 K/mm3 (0.0-0.012); Nucleated Red Blood Cells Perc 0.0 % (0.0-0.2); Platelet Count Result 136 k/mm3 (150-375); Red Blood Count 3.03 M/mm3 (4.2-5.4); White Blood Count 5.2 K/mm3 (4.5-10.0)
[2025-02-09 05:30] LABS: Alanine Aminotransferase 14 U/L (6-35); Albumin Level 3.2 g/dL (3.5-5.1); Alkaline Phosphatase 69 U/L (38-126); Anion Gap 6 mmol/L (4-12); Aspartate Amino Transferase 22 U/L (14-36); Bilirubin,Total 0.4 mg/dL (0.2-1.3); Blood Urea Nitrogen 23 mg/dL (7-17); Calcium 7.9 mg/dL (8.4-10.2); Carbon Dioxide 23 mmol/L (22-30); Chloride 107 mmol/L (98-107); Estimated CRCL calculation 118 ml/min; Estimated Glomerular Filt Rate > 60; Glucose 87 mg/dL (65-110); Magnesium 1.9 mg/dL (1.6-2.3); Potassium 3.6 mmol/L (3.4-5.0); Sodium 136 mmol/L (137-145); Total Protein 6.4 g/dL (6.3-8.2)
[2025-02-09] MEDS: CENTRAL LINE FLUSH 10 ML IV PUSH ×3 (05:31→21:09)
[2025-02-09] MEDS: MEROPENEM 1 GM in SODIUM CHLORIDE 0.9% IV 100 ML 200 ML IVPB ×3 (05:31→20:59)
[2025-02-09] MEDS: BACLOFEN 10 MG TABLET PO ×3 (05:31→20:59)
[2025-02-09] MEDS: GABAPENTIN 400 MG CAPSULE 800 MG PO ×3 (05:31→20:59)
[2025-02-09] MEDS: ENOXAPARIN 40 MG/0.4 ML SYRINGE SUB-Q (08:28)
[2025-02-09] MEDS: POTASSIUM CHLORIDE 20 MEQ ER TABLET 40 MEQ PO (08:28)
[2025-02-09] MEDS: LIDOCAINE 5% PATCH 2 PATCH TRANSDERM (08:28)
--- NOTE | 2025-02-09 08:39 | WPDINTPN ---
Progress Note: A&P Assessment and Plan (1) Septic shock: Code(s): A41.9 - Sepsis, unspecified organism; R65.21 - Severe sepsis with septic shock Status: Acute Assessment and Plan: UA suggestive UTI CT abdomen pelvis IMPRESSION: 1. Mild right hydroureter and mild left hydronephrosis and hydroureter with bilateral urothelial enhancement, consistent with bilateral pyelitis. 2. Gallbladder distention, which may be secondary to fasting. Correlate with physical exam to exclude acute cholecystitis. 3. 3.5 cm left adrenal mass. 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 4. 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 Received adequate fluid resuscitation -will discontinue maintenance IV fluid IV meropenem to cover for ESBL (02/07) Ng change 02/07: Blood cultures growing Gram-negative bacilli 02/07: Urine cultures growing E coli Off Levophed -repeat blood cultures (2) Chronic indwelling Ng catheter: Code(s): Z97.8 - Presence of other specified devices Status: Acute Assessment and Plan: Ng was changed in the ER (3) UTI (urinary tract infection): Code(s): N39.0 - Urinary tract infection, site not specified Status: Acute Assessment and Plan: See above (4) Paraparesis: Code(s): G82.20 - Paraplegia, unspecified Status: Acute Assessment and Plan: Continue muscle relaxant and peripheral neuropathy medications as per home regimen Obtain records from [facility] - Will switch norco to oxycodone ( this is what the pt takes at home) (5) Chest pain: Code(s): R07.9 - Chest pain, unspecified Status: Acute Assessment and Plan: Patient complains chest pain, along with some shortness of breath, was given aspirin -EKG showed intraventricular conduction delay -mild elevation in troponin, could be related to type 2 infarct secondary to septic shock and infection -will repeat troponin level -have Cardiology evaluate the patient if 2nd troponin is increasing. -patient also requesting for more pain medications Troponins were trending down, EKG did not show any ST-T changes 02/08: Echocardiogram Summary 1. Definity contrast administered improved wall motion interpretation. 2. Left ventricular chamber dimension is normal. 3. Left ventricular systolic function is normal, estimated at 60-65. 4. The left ventricular diastolic function is normal. 5. E/e' 6 is not elevated. 6. Left atrial chamber dimension is moderately enlarged. 7. Right atrial chamber dimension is mildly enlarged. 8. There is trace tricuspid valve regurgitation. 9. No pulmonary hypertension, estimated pulmonary arterial systolic pressure is 26 mmHg. Plan DVT prophylaxis -Lovenox Nutrition -diet ordered Code Status - Full Code Total Critical Care Time - 32 minutes Due to a high probability of clinically significant, life threatening deterioration, the patient required my highest level of preparedness to intervene emergently and I personally spent this critical care time directly and personally managing the patient. This critical care time included obtaining a history; examining the patient; pulse oximetry; ordering and review of studies; arranging urgent treatment with development of a management plan; evaluation of patient's response to treatment; frequent reassessment; and discussions with other providers. It was exclusive of separately billable procedures and treating other patients and teaching time. Please see Assessment and Plan section and the rest of the note for further information on patient assessment and treatment This dictation may have been done utilizing a voice recognition system. Attempts have been made to correct errors. However, there may be uncorrected grammatical, spelling, and recognitions errors present. Subjective Date/time seen: 02/09/25 08:39 Interval history: Reason for consult: Septic shock, UTI, 02/09/2025: Patient seen examined the ICU, is awake, alert, oriented. States she feels much better this morning, continues to complain of diffuse pain. Requesting more pain medications. Urine output has been adequate, patient has been afebrile, hemodynamically stable, off Levophed. Adequate p.o. intake Review of Systems Review of Systems: All systems reviewed & are unremarkable except as noted in HPI and below (HPI) Exam Narrative: General: Pt is alert awake and in NAD HEENT: Pupils equal and reactive, sclera is clear, poor dentition Lungs/Chest: Trachea central Clear BS B/L, No crackles or wheezing. Cardiac: RRR. Normal S1 S2. No murmurs Circulation: Pedal pulses are intact and symmetrical. Abdomen: Normal bowel sounds.. Soft. NT. ND. Extremities: Bilateral edema present, dry skin, bilateral knees are swollen. Scar from past surgeries on both knees. No redness or tenderness in the knees. : Ng in place which is draining urine Neurologic: AO x3 PERRL, she is able to move toes on both feet and her touch sensation intact. She can follow commands with both upper extremities. Skin: No Rash Objective Data Vital Signs Vital Signs: Vital Signs - 24 hr 02/08/25 09:00 02/08/25 10:00 02/08/25 10:00 Temperature 100.5 F H 100.5 F H Pulse Rate 79 80 83 Respiratory Rate 15 11 L Blood Pressure 93/63 L 138/65 138/65 Pulse Oximetry 99 98 Oxygen Delivery 02/08/25 10:00 02/08/25 11:00 02/08/25 12:00 Temperature 100.6 F H 101.0 F H Pulse Rate 106 H 76 63 Respiratory Rate 14 17 Blood Pressure 98/49 L 99/52 L Pulse Oximetry 98 100 Oxygen Delivery 02/08/25 12:00 02/08/25 12:00 02/08/25 12:32 Temperature 101 F H Pulse Rate 66 63 Respiratory Rate Blood Pressure 99/52 L Pulse Oximetry Oxygen Delivery 02/08/25 13:00 02/08/25 13:32 02/08/25 14:00 Temperature 99.6 F 99.0 F Pulse Rate 72 63 Respiratory Rate 18 Blood Pressure 102/48 L Pulse Oximetry 100 Oxygen Delivery 02/08/25 14:00 02/08/25 14:00 02/08/25 15:00 Temperature 99.0 F 99.4 F Pulse Rate 68 64 61 Respiratory Rate 16 12 Blood Pressure 100/43 L 112/51 L 98/55 L Pulse Oximetry 100 100 Oxygen Delivery 02/08/25 16:00 02/08/25 16:00 02/08/25 16:00 Temperature 100.3 F H Pulse Rate 61 64 100 Respiratory Rate 21 H Blood Pressure 96/54 L 98/67 L Pulse Oximetry 97 Oxygen Delivery 02/08/25 17:00 02/08/25 17:57 02/08/25 18:00 Temperature 99.6 F Pulse Rate 58 L 58 L 59 L Respiratory Rate 18 Blood Pressure 101/52 L 104/55 L Pulse Oximetry 100 Oxygen Delivery 02/08/25 18:00 02/08/25 18:52 02/08/25 19:00 Temperature 98.6 F Pulse Rate 58 L 64 62 Respiratory Rate 17 17 17 Blood Pressure 104/55 L 96/49 L 97/55 L Pulse Oximetry 98 98 98 Oxygen Delivery 02/08/25 20:00 02/08/25 20:00 02/08/25 20:00 Temperature 98.6 F Pulse Rate 57 L 57 L Respiratory Rate 14 Blood Pressure 84/47 L 84/47 L Pulse Oximetry 99 Oxygen Delivery Room Air 02/08/25 20:00 02/08/25 20:15 02/08/25 20:30 Temperature Pulse Rate 60 50 L 55 L Respiratory Rate 17 17 Blood Pressure 133/53 L 142/73 H Pulse Oximetry 100 99 Oxygen Delivery 02/08/25 20:45 02/08/25 21:00 02/08/25 21:00 Temperature Pulse Rate 46 L 45 L 45 L Respiratory Rate 18 16 Blood Pressure 142/71 H 138/65 138/65 Pulse Oximetry 99 98 Oxygen Delivery 02/08/25 21:15 02/08/25 21:15 02/08/25 21:30 Temperature Pulse Rate 50 L 50 L 62 Respiratory Rate 16 18 Blood Pressure 120/66 120/66 99/54 L Pulse Oximetry 98 99 Oxygen Delivery 02/08/25 21:45 02/08/25 22:00 02/08/25 22:00 Temperature Pulse Rate 62 61 61 Respiratory Rate 17 18 Blood Pressure 101/55 L 98/56 L 98/56 L Pulse Oximetry 99 99 Oxygen Delivery 02/08/25 22:00 02/08/25 22:15 02/08/25 23:00 Temperature Pulse Rate 61 58 L 54 L Respiratory Rate 17 18 Blood Pressure 101/55 L 118/60 Pulse Oximetry 99 99 Oxygen Delivery 02/08/25 23:45 02/08/25 23:45 02/09/25 00:00 Temperature Pulse Rate 51 L 51 L Respiratory Rate 18 Blood Pressure 128/65 128/65 Pulse Oximetry 99 Oxygen Delivery Room Air 02/09/25 00:00 02/09/25 00:00 02/09/25 00:00 Temperature 98.3 F Pulse Rate 57 L 57 L 53 L Respiratory Rate 18 Blood Pressure 108/60 108/60 Pulse Oximetry 99 Oxygen Delivery 02/09/25 00:15 02/09/25 00:30 02/09/25 00:45 Temperature Pulse Rate 53 L 51 L 52 L Respiratory Rate 18 17 16 Blood Pressure 105/54 L 114/62 106/58 L Pulse Oximetry 99 99 99 Oxygen Delivery 02/09/25 01:00 02/09/25 02:00 02/09/25 02:00 Temperature Pulse Rate 50 L 51 L 51 L Respiratory Rate 16 16 Blood Pressure 105/63 108/65 108/65 Pulse Oximetry 100 100 Oxygen Delivery 02/09/25 02:00 02/09/25 03:00 02/09/25 04:00 Temperature Pulse Rate 51 L 52 L Respiratory Rate 15 Blood Pressure 112/62 Pulse Oximetry 100 Oxygen Delivery Room Air 02/09/25 04:00 02/09/25 04:00 02/09/25 04:00 Temperature 97.6 F Pulse Rate 49 L 49 L 47 L Respiratory Rate 14 Blood Pressure 98/60 L 98/60 L Pulse Oximetry 100 Oxygen Delivery 02/09/25 05:00 02/09/25 06:00 02/09/25 06:00 Temperature Pulse Rate 49 L 53 L 53 L Respiratory Rate 14 18 Blood Pressure 91/56 L 104/79 Pulse Oximetry 100 100 Oxygen Delivery 02/09/25 06:00 02/09/25 07:15 02/09/25 08:00 Temperature 98.6 F Pulse Rate 53 L 51 L 66 Respiratory Rate 16 18 Blood Pressure 104/79 99/52 L 117/65 Pulse Oximetry 100 100 Oxygen Delivery Intake/Output Intake/Output: Intake & Output 02/06/25 02/07/25 02/08/25 02/09/25 23:59 23:59 23:59 23:59 Intake Total 4971.9 3064.0 462 Output Total 3350 1725 725 Balance 1621.9 1339.0 -263 Meds/Results Medications: Active Medications Generic Name Dose Route Start Last Admin Trade Name Freq PRN Reason Stop Dose Admin Acetaminophen 650 mg 02/08/25 12:13 02/08/25 12:32 Acetaminophen 325 Mg Tablet PO 650 mg Q4H PRN Administration Mild Pain (1-3) or Fever Hydrocodone Bitart/Acetaminophen 1 tab 02/07/25 10:09 02/08/25 23:50 Hydrocodone/Acetaminophen (*Crx) 5-325 Mg Tablet PO 1 tab Q4H PRN Administration Pain Rated 4-6 Baclofen 10 mg 02/07/25 22:00 02/09/25 05:31 Baclofen 10 Mg Tablet PO 10 mg Q8HR MATTHEW Administration Enoxaparin Sodium 40 mg 02/07/25 09:00 02/09/25 08:28 Enoxaparin 40 Mg/0.4 Ml Syringe SUB-Q 40 mg DAILY MATTHEW Administration Gabapentin 800 mg 02/07/25 09:00 02/09/25 05:31 Gabapentin 400 Mg Capsule PO 800 mg Q8HR MATTHEW Administration Norepinephrine Bitartrate 8 mg in 250 mls @ 0 mls/hr 02/07/25 05:00 02/09/25 06:00 Levophed 8 Mg/D5w 250 Ml IV CONT 0 mcg/min .Q0M MATTHEW 0 mls/hr Protocol Titration Meropenem 1 gm/ Sodium 100 mls @ 200 mls/hr 02/07/25 13:00 02/09/25 05:31 Chloride IVPB 200 mls/hr Q8HR MATTHEW Administration Lidocaine 2 patch 02/07/25 09:00 02/09/25 08:28 Lidocaine 5% Patch TRANSDERM 2 patch QAM MATTHEW Administration Sodium Chloride 10 ml 02/07/25 14:00 02/09/25 05:31 Central Line Flush IV PUSH 10 ml Q8HR MATTHEW Administration Sodium Chloride 20 ml 02/07/25 06:45 Central Line Flush IV PUSH PRN PRN after blood draws Radiology Results: ITS Impressions Chest/Abdomen/Pelvis CT 02/07/25 07:15 IMPRESSION: 1. Mild right hydroureter and mild left hydronephrosis and hydroureter with bilateral urothelial enhancement, consistent with bilateral pyelitis. 2. Gallbladder distention, which may be secondary to fasting. Correlate with physical exam to exclude acute cholecystitis. 3. 3.5 cm left adrenal mass. 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 4. 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 Chest X-Ray 02/08/25 10:45 IMPRESSION: 1. Mild bibasilar atelectasis. Labs Labs: Laboratory Results - last 24 hr 02/08/25 02/08/25 02/08/25 10:06 13:48 18:41 WBC RBC Hgb Hct MCV MCH MCHC RDW Plt Count MPV Immature Gran % (Auto) Neut % (Auto) Lymph % (Auto) [place] % (Auto) Eos % (Auto) Baso % (Auto) Lymph # (Auto) [place] # (Auto) Eos # (Auto) Baso # (Auto) Abs Immat Gran (auto) Absolute Neuts (auto) Absolute Nucleated RBC Nucleated RBC % Sodium Potassium Chloride Carbon Dioxide Anion Gap BUN Creatinine Estim Creat Clear Calc Estimated GFR Glucose Calcium Phosphorus Magnesium Total Bilirubin AST ALT Alkaline Phosphatase Troponin I 0.146 H* 0.122 H* 0.101 H* Total Protein Albumin 02/09/25 04:30 WBC 5.2 RBC 3.03 L Hgb 8.7 L Hct 27.7 L MCV 91.4 MCH 28.7 MCHC 31.4 L RDW 14.6 H Plt Count 136 L MPV 8.8 Immature Gran % (Auto) 0.8 H Neut % (Auto) 77.9 H Lymph % (Auto) 15.3 L [place] % (Auto) 3.9 Eos % (Auto) 1.7 Baso % (Auto) 0.4 Lymph # (Auto) 0.79 L [place] # (Auto) 0.2 Eos # (Auto) 0.1 Baso # (Auto) 0.0 Abs Immat Gran (auto) 0.04 H Absolute Neuts (auto) 4.0 Absolute Nucleated RBC 0.000 Nucleated RBC % 0.0 Sodium 136 L Potassium 3.6 Chloride 107 Carbon Dioxide 23 Anion Gap 6 BUN 23 H Creatinine 0.57 L Estim Creat Clear Calc 118 Estimated GFR > 60 Glucose 87 Calcium 7.9 L Phosphorus 3.2 Magnesium 1.9 Total Bilirubin 0.4 AST 22 ALT 14 Alkaline Phosphatase 69 Troponin I Total Protein 6.4 Albumin 3.2 L Quality VTE Prophylaxis VTE prophylaxis: mechanical ordered
[2025-02-09] MEDS: oxyCODONE HCL (*CRX) 10 MG TAB SR 12HR PO ×2 (09:44→20:59)
[2025-02-09 10:41] LABS: Iron 32 ug/dL (37-170)
[2025-02-09 10:48] LABS: Vitamin B12 290.0 pg/mL (239-931)
[2025-02-09 10:56] LABS: Percent Iron Saturation 17 % (20-50)
[2025-02-09] MEDS: ACETAMINOPHEN 325 MG TABLET 650 MG PO (14:29)
[2025-02-09] MEDS: SENNA/DOCUSATE SODIUM TABLET 1 TAB PO (20:59)
[2025-02-10] VITALS (14 sets, daily range): BP systolic 102–146; BP diastolic 46–58; PULSE 50–83; RESP 10–18; TEMP 36.4–38.2; O2SAT 98–100; BMI 11.0
[2025-02-10] MEDS: CENTRAL LINE FLUSH 10 ML IV PUSH (05:57)
[2025-02-10] MEDS: GABAPENTIN 400 MG CAPSULE 800 MG PO ×3 (05:57→21:54)
[2025-02-10] MEDS: MEROPENEM 1 GM in SODIUM CHLORIDE 0.9% IV 100 ML 200 ML IVPB ×3 (05:57→22:01)
[2025-02-10] MEDS: BACLOFEN 10 MG TABLET PO ×3 (05:57→21:54)
[2025-02-10 08:04] LABS: Alanine Aminotransferase 14 U/L (6-35); Albumin Level 3.3 g/dL (3.5-5.1); Alkaline Phosphatase 75 U/L (38-126); Anion Gap 6 mmol/L (4-12); Aspartate Amino Transferase 26 U/L (14-36); Bilirubin,Total 0.6 mg/dL (0.2-1.3); Blood Urea Nitrogen 17 mg/dL (7-17); Calcium 7.9 mg/dL (8.4-10.2); Carbon Dioxide 19 mmol/L (22-30); Chloride 110 mmol/L (98-107); Estimated CRCL calculation 141 ml/min; Estimated Glomerular Filt Rate > 60; Glucose 74 mg/dL (65-110); Magnesium 2.4 mg/dL (1.6-2.3); Potassium 4.1 mmol/L (3.4-5.0); Sodium 135 mmol/L (137-145); Total Protein 6.9 g/dL (6.3-8.2)
[2025-02-10 08:38] LABS: Ferritin 376.00 ng/mL (6.24-137)
[2025-02-10 09:02] LABS: Hematocrit 28.5 % (37.0-47.0); Hemoglobin 9.0 g/dL (12.0-15.0); Immature Granulocyte Percent A 1.6 % (0-0.5); Lymphocytes Absolute Auto 0.32 K/mm3 (0.9-3.2); Mean Corpuscular HGB Conc 31.6 g/dl (32-36); Mean Corpuscular Hemoglobin 28.4 pg (26-34); Mean Corpuscular Volume 89.9 fl (80-100); Nucleated Red Blood Cells Absolute Auto 0.000 K/mm3 (0.0-0.012); Nucleated Red Blood Cells Perc 0.0 % (0.0-0.2); Platelet Count Result 130 k/mm3 (150-375); Red Blood Count 3.17 M/mm3 (4.2-5.4)
[2025-02-10] MEDS: oxyCODONE HCL (*CRX) 10 MG TAB SR 12HR PO ×2 (09:16→21:55)
[2025-02-10] MEDS: LIDOCAINE 5% PATCH 2 PATCH TRANSDERM (09:16)
[2025-02-10] MEDS: ENOXAPARIN 40 MG/0.4 ML SYRINGE SUB-Q (09:16)
[2025-02-10 09:32] LABS: White Blood Count 1.8 K/mm3 (4.5-10.0)
[2025-02-10 11:23] LABS: Hematocrit 29.0 % (37.0-47.0); Hemoglobin 9.3 g/dL (12.0-15.0); Immature Granulocyte Percent A 1.2 % (0-0.5); Lymphocytes Absolute Auto 0.35 K/mm3 (0.9-3.2); Mean Corpuscular HGB Conc 32.1 g/dl (32-36); Mean Corpuscular Hemoglobin 28.6 pg (26-34); Mean Corpuscular Volume 89.2 fl (80-100); Nucleated Red Blood Cells Absolute Auto 0.000 K/mm3 (0.0-0.012); Nucleated Red Blood Cells Perc 0.0 % (0.0-0.2); Platelet Count Result 144 k/mm3 (150-375); Red Blood Count 3.25 M/mm3 (4.2-5.4)
[2025-02-10] MEDS: ACETAMINOPHEN 325 MG TABLET 650 MG PO (12:16)
[2025-02-10 12:24] LABS: White Blood Count 1.7 K/mm3 (4.5-10.0)
--- NOTE | 2025-02-10 16:13 | PM.IMPN ---
Progress Note: A&P Assessment and Plan (1) Septic shock: Code(s): A41.9 - Sepsis, unspecified organism; R65.21 - Severe sepsis with septic shock Status: Acute Assessment and Plan: UA suggestive UTI CT abdomen pelvis IMPRESSION: 1. Mild right hydroureter and mild left hydronephrosis and hydroureter with bilateral urothelial enhancement, consistent with bilateral pyelitis. 2. Gallbladder distention, which may be secondary to fasting. Correlate with physical exam to exclude acute cholecystitis. 3. 3.5 cm left adrenal mass. 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 4. 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 Received adequate fluid resuscitation, fluids discontinued IV meropenem to cover for ESBL (02/07) Ng change 02/07: Blood cultures growing Gram-negative bacilli 02/07: Urine cultures growing E coli Afebrile, leukopenia, check blood cultures again. Check CT with contrast focal thoracic and lumbar spine. 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 with severe sepsis which was the inciting factor for her paraparesis (2) Chronic indwelling Ng catheter: Code(s): Z97.8 - Presence of other specified devices Status: Acute Assessment and Plan: Ng was changed in the ER (3) UTI (urinary tract infection): Code(s): N39.0 - Urinary tract infection, site not specified Status: Acute Assessment and Plan: See above (4) Paraparesis: Code(s): G82.20 - Paraplegia, unspecified Status: Acute Assessment and Plan: Continue muscle relaxant and peripheral neuropathy medications as per home regimen Obtain records from [facility] switch to oxycodone which she takes for at home. Constipation for 5 days, now on MiraLax. Continue and monitor for bowel movement. (5) Chest pain: Code(s): R07.9 - Chest pain, unspecified Status: Acute Assessment and Plan: Patient complains chest pain, along with some shortness of breath, was given aspirin -EKG showed intraventricular conduction delay -mild elevation in troponin, could be related to type 2 infarct secondary to septic shock and infection Troponins were trending down, EKG did not show any ST-T changes 02/08: Echocardiogram Summary 1. Definity contrast administered improved wall motion interpretation. 2. Left ventricular chamber dimension is normal. 3. Left ventricular systolic function is normal, estimated at 60-65. 4. The left ventricular diastolic function is normal. 5. E/e' 6 is not elevated. 6. Left atrial chamber dimension is moderately enlarged. 7. Right atrial chamber dimension is mildly enlarged. 8. There is trace tricuspid valve regurgitation. 9. No pulmonary hypertension, estimated pulmonary arterial systolic pressure is 26 mmHg. Plan DVT prophylaxis -Lovenox Nutrition -diet ordered Code Status - Full Code Wound care per unit protocol. Continue telemetry or sepsis. Shock has resolved, Levophed discontinued. Time Spent With Patient Time with patient: Greater than 35 minutes Subjective Date/time seen: 02/10/25 16:13 Interval history: Fever out, patient feels clammy. Leukopenia. Constipation, bowel movement for 5 days now. Patient is starting MiraLax. Review of Systems Review of Systems: All systems reviewed & are unremarkable except as noted in HPI and below (Subjective) Exam Narrative: General: Pt is alert awake and in NAD HEENT: Pupils equal and reactive, sclera is clear, poor dentition Tenderness to palpation at cervical thoracic spine, reports is chronic for her Lungs/Chest: Trachea central Clear BS B/L, No crackles or wheezing. Cardiac: RRR. Normal S1 S2. No murmurs Circulation: Pedal pulses are intact and symmetrical. Abdomen: Normal bowel sounds.. Soft. NT. ND. Extremities: Bilateral edema present, dry skin, bilateral knees are swollen. Scar from past surgeries on both knees. No redness or tenderness in the knees. : Ng in place which is draining urine Neurologic: AO x3 PERRL, she is able to move toes on both feet and her touch sensation intact. She can follow commands with both upper extremities. Skin: No Rash Objective Data Vital Signs Vital Signs: Vital Signs - 24 hr 02/09/25 16:43 02/09/25 20:00 02/09/25 20:00 Temperature 102.5 F H Pulse Rate 50 L Respiratory Rate Blood Pressure Pulse Oximetry Oxygen Delivery Room Air 02/10/25 00:00 02/10/25 00:00 02/10/25 04:00 Temperature 98 F Pulse Rate 54 L 52 L 58 L Respiratory Rate 10 L Blood Pressure 102/56 L Pulse Oximetry 99 Oxygen Delivery 02/10/25 08:00 02/10/25 08:00 02/10/25 08:00 Temperature 100.0 F H Pulse Rate 83 66 Respiratory Rate 15 Blood Pressure 110/49 L Pulse Oximetry 98 Oxygen Delivery Room Air 02/10/25 09:59 02/10/25 10:14 02/10/25 11:05 Temperature 100.1 F H 100.7 F H Pulse Rate Respiratory Rate Blood Pressure Pulse Oximetry 98 Oxygen Delivery Room Air 02/10/25 11:49 02/10/25 12:16 02/10/25 13:16 Temperature 100.4 F H 100.7 F H 99.6 F Pulse Rate Respiratory Rate Blood Pressure Pulse Oximetry Oxygen Delivery Intake/Output Intake/Output: Intake & Output 02/07/25 02/08/25 02/09/25 02/10/25 23:59 23:59 23:59 23:59 Intake Total 4971.9 3064.0 1716 1916 Output Total 3350 1725 1925 2350 Balance 1621.9 1339.0 -209 -434 Meds/Results Medications: Active Medications Generic Name Dose Route Start Last Admin Trade Name Freq PRN Reason Stop Dose Admin Acetaminophen 650 mg 02/08/25 12:13 02/10/25 12:16 Acetaminophen 325 Mg Tablet PO 650 mg Q4H PRN Administration Mild Pain (1-3) or Fever Baclofen 10 mg 02/07/25 22:00 02/10/25 13:50 Baclofen 10 Mg Tablet PO 10 mg Q8HR MATTHEW Administration Enoxaparin Sodium 40 mg 02/07/25 09:00 02/10/25 09:16 Enoxaparin 40 Mg/0.4 Ml Syringe SUB-Q 40 mg DAILY MATTHEW Administration Gabapentin 800 mg 02/07/25 09:00 02/10/25 13:50 Gabapentin 400 Mg Capsule PO 800 mg Q8HR MATTHEW Administration Meropenem 1 gm/ Sodium 100 mls @ 200 mls/hr 02/07/25 13:00 02/10/25 13:50 Chloride IVPB 200 mls/hr Q8HR MATTHEW Administration Lidocaine 2 patch 02/07/25 09:00 02/10/25 09:16 Lidocaine 5% Patch TRANSDERM 2 patch QAM MATTHEW Administration Oxycodone HCl 10 mg 02/09/25 09:00 02/10/25 09:16 Oxycodone Hcl (*Crx) 10 Mg Tab Sr 12hr PO 10 mg Q12HR MATTHEW Administration Polyethylene Glycol 17 gm 02/10/25 09:00 02/10/25 09:16 Polyethylene Glycol 3350 17 Gm Powd.Pack PO 17 gm QAM MATTHEW Administration Senna/Docusate Sodium 1 tab 02/09/25 21:00 02/09/25 20:59 Senna/Docusate Sodium Tablet PO 1 tab HS MATTHEW Administration Sodium Chloride 20 ml 02/07/25 06:45 Central Line Flush IV PUSH PRN PRN after blood draws Vancomycin HCl 1 each 02/10/25 16:10 Vancomycin Pharmacist To Dose IVPB PER PROTOCOL [facility] Radiology Results: ITS Impressions Chest/Abdomen/Pelvis CT 02/07/25 07:15 IMPRESSION: 1. Mild right hydroureter and mild left hydronephrosis and hydroureter with bilateral urothelial enhancement, consistent with bilateral pyelitis. 2. Gallbladder distention, which may be secondary to fasting. Correlate with physical exam to exclude acute cholecystitis. 3. 3.5 cm left adrenal mass. 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 4. 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 Chest X-Ray 02/08/25 10:45 IMPRESSION: 1. Mild bibasilar atelectasis. Labs Labs: Laboratory Results - last 24 hr 02/10/25 02/10/25 02/10/25 07:39 08:51 11:11 WBC 1.8 L* 1.7 L* RBC 3.17 L 3.25 L Hgb 9.0 L 9.3 L Hct 28.5 L 29.0 L MCV 89.9 89.2 MCH 28.4 28.6 MCHC 31.6 L 32.1 RDW 14.2 14.2 Plt Count 130 L 144 L MPV 8.6 8.6 Immature Gran % (Auto) 1.6 H 1.2 H Neut % (Auto) 76.1 H 71.0 Lymph % (Auto) 17.5 L 21.2 [place] % (Auto) 2.7 4.8 Eos % (Auto) 1.6 1.2 Baso % (Auto) 0.5 0.6 Lymph # (Auto) 0.32 L 0.35 L [place] # (Auto) 0.1 0.1 Eos # (Auto) 0.0 0.0 Baso # (Auto) 0.0 0.0 Abs Immat Gran (auto) 0.03 0.02 Absolute Neuts (auto) 1.4 1.2 L Absolute Nucleated RBC 0.000 0.000 Nucleated RBC % 0.0 0.0 Sodium 135 L Potassium 4.1 Chloride 110 H Carbon Dioxide 19 L Anion Gap 6 BUN 17 Creatinine 0.48 L Estim Creat Clear Calc 141 Estimated GFR > 60 Glucose 74 Calcium 7.9 L Phosphorus 3.4 Magnesium 2.4 H Ferritin 376.00 H Total Bilirubin 0.6 AST 26 ALT 14 Alkaline Phosphatase 75 Total Protein 6.9 Albumin 3.3 L
--- NOTE | 2025-02-10 16:31 | PC.NURSE ---
This patient, Ashlee Lamas, was transferred to [facility] on 02/10/25 at 1631. Personal belongings sent with patient. Report given to [facility]. Appropriate documentation sent with patient.
[2025-02-10] MEDS: VANCOMYCIN 1,250 MG/NS 250 ML 1,250 MG/250 ML BAG 166.67 MG IVPB ×2 (17:03→22:49)
[2025-02-10] MEDS: traMADol HCL (*CRX) 25 MG TABLET PO (17:25)
[2025-02-10] MEDS: SENNA/DOCUSATE SODIUM TABLET 1 TAB PO (21:55)
[2025-02-11] VITALS (10 sets, daily range): BP systolic 123–139; BP diastolic 64–74; PULSE 50–71; RESP 16–18; TEMP 36.3–36.4; O2SAT 97–99
[2025-02-11 05:21] LABS: Hematocrit 28.1 % (37.0-47.0); Hemoglobin 8.8 g/dL (12.0-15.0); Mean Corpuscular HGB Conc 31.3 g/dl (32-36); Mean Corpuscular Hemoglobin 28.1 pg (26-34); Mean Corpuscular Volume 89.8 fl (80-100); Platelet Count Result 160 k/mm3 (150-375); Red Blood Count 3.13 M/mm3 (4.2-5.4); White Blood Count 2.4 K/mm3 (4.5-10.0)
[2025-02-11] MEDS: GABAPENTIN 400 MG CAPSULE 800 MG PO ×3 (05:41→21:39)
[2025-02-11] MEDS: MEROPENEM 1 GM in SODIUM CHLORIDE 0.9% IV 100 ML 200 ML IVPB (05:42)
[2025-02-11] MEDS: BACLOFEN 10 MG TABLET PO ×3 (05:42→21:39)
[2025-02-11 05:46] LABS: Alanine Aminotransferase 15 U/L (6-35); Albumin Level 3.0 g/dL (3.5-5.1); Alkaline Phosphatase 82 U/L (38-126); Anion Gap 4 mmol/L (4-12); Aspartate Amino Transferase 24 U/L (14-36); Bilirubin,Total 0.4 mg/dL (0.2-1.3); Blood Urea Nitrogen 13 mg/dL (7-17); Calcium 7.9 mg/dL (8.4-10.2); Carbon Dioxide 25 mmol/L (22-30); Chloride 107 mmol/L (98-107); Estimated CRCL calculation 136 ml/min; Estimated Glomerular Filt Rate > 60; Glucose 83 mg/dL (65-110); Magnesium 1.9 mg/dL (1.6-2.3); Potassium 4.2 mmol/L (3.4-5.0); Sodium 136 mmol/L (137-145); Total Protein 6.3 g/dL (6.3-8.2)
[2025-02-11 06:01] LABS: Procalcitonin 3.4 ng/mL
[2025-02-11] MEDS: VANCOMYCIN 1,500 MG/NS 500 ML 1,500 MG/500 ML BAG 250 MG IVPB ×2 (06:46→17:02)
[2025-02-11] MEDS: LIDOCAINE 5% PATCH 2 PATCH TRANSDERM (08:24)
[2025-02-11] MEDS: oxyCODONE HCL (*CRX) 10 MG TAB SR 12HR PO ×2 (08:24→21:31)
[2025-02-11] MEDS: ENOXAPARIN 40 MG/0.4 ML SYRINGE SUB-Q (08:24)
[2025-02-11] MEDS: LORazepam (*CRX) 1 MG TABLET PO (11:44)
--- NOTE | 2025-02-11 15:48 | WPDIDCN ---
Assessment and Plan Assessment and plan (1) Chronic indwelling Ng catheter: Code(s): Z97.8 - Presence of other specified devices Status: Acute (2) Paraplegia: Code(s): G82.20 - Paraplegia, unspecified Status: Acute (3) UTI (urinary tract infection): Code(s): N39.0 - Urinary tract infection, site not specified Status: Acute (4) E. coli UTI: Code(s): N39.0 - Urinary tract infection, site not specified; B96.20 - Unspecified Escherichia coli [E. coli] as the cause of diseases classified elsewhere Status: Acute (5) E coli bacteremia: Code(s): R78.81 - Bacteremia; B96.20 - Unspecified Escherichia coli [E. coli] as the cause of diseases classified elsewhere Status: Acute (6) Septic shock: Code(s): A41.9 - Sepsis, unspecified organism; R65.21 - Severe sepsis with septic shock Status: Acute Assessment and Plan: 1. Complicated E coli UTI, CAUTI, with E coli bacteremia. 2. Acute sepsis with shock on presentation, overall resolved 3. Post admission persistence of intermittent daily fever despite appropriate antibiotics. -- fever appears to be improving. -- no clinical evidence of pneumonia. -- no rash but would still consider the possibility of penicillin -associated febrile reaction. Leukopenia may also be associated with drug reaction. -- history of cervical laminectomies and recent cervical osteomyelitis status post extended IV antibiotics. Currently with MRI evidence of residual change but doubt active cervical infection at this time. -- minimal collection of reactive fluid noted and area of L3-L4 disc protrusion . doubt true abscess. 4. History of paraplegia. 5. History of hive allergy to penicillin. Plan -- to avoid the possibility of penicillin -associated agents triggering a drug reaction including fever and leukopenia recommend discontinuing meropenem and placing patient on IV Bactrim which will provide continued coverage for complicated UTI with bacteremia. Monitor temperature and white blood cell count after antibiotic change. -- continue vancomycin pending a 02/09 in 02/10 repeat blood cultures. -- further recommendations to follow. Thank you for the consult. Patient was seen via video telehealth consultation with the assistance of staff. Chart, data, and patient independently reviewed. Patient was located at [facility] while I was located in my [place] office. Received verbal consent from patient. HPI Data of Consult Date/Time: 02/11/25 15:48 Requesting Physician: Vero Nunn MD Primary Care Provider: Dao Cabezas MD Consult Narrative Reason for consult: For fever and leukopenia while on treatment for complicated E coli UTI. Narrative: Ashlee Lamas is a 50 year old female Significant for paraplegia possibly related to cervical vertebral infection that required an extended course of IV antibiotics last August. Possible cervical surgery as well. she is maintained a chronic indwelling Ng since August. Presented to the ED 02/07/2025 with fever and malaise. Ng catheter output had diminished. Noted to have fever up to 104 Degrees F. White blood cell count was normal. She was hypotensive And initially required Levophed. UA consistent with UTI and both urine and blood cultures subsequently positive for pansensitive E coli. Initially received ceftriaxone but has been on meropenem for the last 4 days. Since admission and placement on antibiotics she has had continued daily intermittent fever and white blood cell count has trended toward leukopenia. she reports a hive allergy history to penicillin agents documented [facility] a number of years ago. Note: Last T-max of a 100.7? occurred yesterday and she has been afebrile since. As workup for persistent fever despite appropriate coverage for E coli UTI she underwent CT of thoracic and lumbar spine Unremarkable with cervical CT significant for sclerosis of the vertebral bodies C6-C7 with osteomyelitis not excluded. Cervical MRI significant for increased cord signal centered at C6-C7 which suggest sequela of either prior trauma or central canal stenosis given the anterior spinal fusion with suggestion of some prior anterior vertebral body height loss at C6 in the prior lower cervical posterior decompression with C5-C7 laminectomies. Thoracic MRI was negative for osteomyelitis, diskitis, or abscess but moderate to large central disc protrusions were seen at T7 - T8 and T11-T12. Lumbar MRI with severe degenerative changes in the lower lumbar spine with multilevel spinal canal stenosis and a 5 x 4 mm possible tiny peripherally enhancing fluid collection along the posterior margin of L4 at the distal margin of the extruded disc at L3-L4 level likely reactive inflammatory change although a tiny developing infection or abscess not excluded. Review of Systems Review of Systems: All systems reviewed & are unremarkable except as noted in HPI and below PMFSH Past Medical History Medical History Muscle spasticity Chronic indwelling Ng catheter Paraplegia Peripheral neuropathy Surgical History Surgical History H/O right wrist surgery H/O cervical spine surgery H/O right knee surgery Family History Family History Mother Congestive heart failure Diabetes mellitus Father Congestive heart failure Social History Social History Social History: She lives with her , 9-year-old daughter, and her sister. 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 Code status: Full code Years smoked: 20 Smoking status: Former smoker Tobacco type: cigarettes Alcohol intake: never Substance use: never Lack of Transportation: No Lack of Food: Never True Current Housing: I Have Housing Concerned About Future Housing: No Difficulty Paying Gas/Electric Bills: No Difficulty Paying for Meds: No Currently Unemployed: No Education: Grade School Difficulty w/ Childcare or Family Care: No Spiritual care concerns: No Meds Home Medications and Allergies Home Medications ?Medication ?Instructions ?Recorded ?Confirmed ?Type baclofen 10 mg tablet 10 mg PO Q8H 02/07/25 02/07/25 History gabapentin 400 mg capsule 800 mg PO Q8H 02/07/25 02/07/25 History lidocaine 5 % topical patch 2 patch transdermal Q12H 02/07/25 02/07/25 History Allergies Allergy/AdvReac Type Severity Reaction Status Date / Time Penicillins Allergy Mild Hives Verified 01/01/25 14:13 Vital Signs Vital Signs - 24 hr 02/10/25 16:00 02/10/25 16:00 02/10/25 16:42 Temperature 99.2 F 97.6 F Pulse Rate 68 63 Respiratory Rate 18 Blood Pressure 107/46 L Pulse Oximetry 99 Oxygen Delivery 02/10/25 20:00 02/10/25 20:00 02/10/25 21:54 Temperature 97.5 F L Pulse Rate 57 L 50 L Respiratory Rate 16 Blood Pressure 146/58 H Pulse Oximetry 100 Oxygen Delivery Room Air 02/11/25 00:00 02/11/25 04:00 02/11/25 06:28 Temperature 97.6 F Pulse Rate 71 50 L 60 Respiratory Rate 18 Blood Pressure 123/64 Pulse Oximetry 99 Oxygen Delivery 02/11/25 08:02 02/11/25 08:46 02/11/25 08:46 Temperature Pulse Rate 64 60 Respiratory Rate 18 Blood Pressure Pulse Oximetry 99 Oxygen Delivery Room Air 02/11/25 11:25 02/11/25 12:04 Temperature Pulse Rate 58 L Respiratory Rate Blood Pressure Pulse Oximetry Oxygen Delivery Room Air Exam Narrative: Awake, alert, sitting up in bed, and interactive. Not back to baseline but states that she is feeling better since admission. No respiratory difficulty. No shortness of breath or significant cough. No abdominal distention she denies diarrhea. Ng catheter in place chronically. No evidence of rash. Results Labs 02/11/25 05:04 02/11/25 05:04 Labs: Short CBC 02/11/25 Range/Units 05:04 WBC 2.4 L (4.5-10.0) K/mm3 Hgb 8.8 L (12.0-15.0) g/dL Hct 28.1 L (37.0-47.0) % Plt Count 160 (150-375) k/mm3 [facility] 02/11/25 05:04 Sodium 136 L Potassium 4.2 Chloride 107 Carbon Dioxide 25 BUN 13 Creatinine 0.50 L Glucose 83 Calcium 7.9 L Liver Function 02/11/25 Range/Units 05:04 Total Bilirubin 0.4 (0.2-1.3) mg/dL AST 24 (14-36) U/L ALT 15 (6-35) U/L Alkaline Phosphatase 82 (38-126) U/L Albumin 3.0 L (3.5-5.1) g/dL
--- NOTE | 2025-02-11 17:37 | P.PNIM_ITS ---
Progress Note: A&P Assessment and Plan (1) Fever: Code(s): R50.9 - Fever, unspecified Status: Acute Plan Monitor fever curve. Meropenem changed to IV Bactrim. MRI today. Patient wished to be full code. Has some uncontrolled pain, trying tramadol. Subjective Date/time seen: 02/11/25 17:37 Interval history: No major acute overnight events. Review of Systems Review of Systems: All systems reviewed & are unremarkable except as noted in HPI and below (Subjective) Exam Narrative: General: Pt is alert awake and in NAD HEENT: Pupils equal and reactive, sclera is clear, poor dentition Tenderness to palpation at cervical thoracic spine, reports is chronic for her Lungs/Chest: Trachea central Clear BS B/L, No crackles or wheezing. Cardiac: RRR. Normal S1 S2. No murmurs Circulation: Pedal pulses are intact and symmetrical. Abdomen: Normal bowel sounds.. Soft. NT. ND. Extremities: Bilateral edema present, dry skin, bilateral knees are swollen. Scar from past surgeries on both knees. No redness or tenderness in the knees. : Ng in place which is draining urine Neurologic: AO x3 PERRL, she is able to move toes on both feet and her touch sensation intact. She can follow commands with both upper extremities. Skin: No Rash Objective Data Vital Signs Vital Signs: Vital Signs - 24 hr 02/10/25 20:00 02/10/25 20:00 02/10/25 21:54 Temperature 97.5 F L Pulse Rate 57 L 50 L Respiratory Rate 16 Blood Pressure 146/58 H Pulse Oximetry 100 Oxygen Delivery Room Air 02/11/25 00:00 02/11/25 04:00 02/11/25 06:28 Temperature 97.6 F Pulse Rate 71 50 L 60 Respiratory Rate 18 Blood Pressure 123/64 Pulse Oximetry 99 Oxygen Delivery 02/11/25 08:02 02/11/25 08:46 02/11/25 08:46 Temperature Pulse Rate 64 60 Respiratory Rate 18 Blood Pressure Pulse Oximetry 99 Oxygen Delivery Room Air 02/11/25 11:25 02/11/25 12:04 02/11/25 16:00 Temperature 97.4 F L Pulse Rate 58 L 68 Respiratory Rate 16 Blood Pressure 123/74 Pulse Oximetry 98 Oxygen Delivery Room Air 02/11/25 16:02 Temperature Pulse Rate 61 Respiratory Rate Blood Pressure Pulse Oximetry Oxygen Delivery Intake/Output Intake/Output: Intake & Output 02/08/25 02/09/25 02/10/25 02/11/25 23:59 23:59 23:59 23:59 Intake Total 3064.0 1716 2606 1536.7 Output Total 1725 1925 2850 3000 Balance 1339.0 -209 -244 -1463.3 Meds/Results Medications: Active Medications Generic Name Dose Route Start Last Admin Trade Name Freq PRN Reason Stop Dose Admin Acetaminophen 650 mg 02/08/25 12:13 02/10/25 12:16 Acetaminophen 325 Mg Tablet PO 650 mg Q4H PRN Administration Mild Pain (1-3) or Fever Baclofen 10 mg 02/07/25 22:00 02/11/25 14:39 Baclofen 10 Mg Tablet PO 10 mg Q8HR MATTHEW Administration Enoxaparin Sodium 40 mg 02/07/25 09:00 02/11/25 08:24 Enoxaparin 40 Mg/0.4 Ml Syringe SUB-Q 40 mg DAILY MATTHEW Administration Gabapentin 800 mg 02/07/25 09:00 02/11/25 14:39 Gabapentin 400 Mg Capsule PO 800 mg Q8HR MATTHEW Administration Vancomycin HCl 1,500 mg in 500 mls @ 250 mls/hr 02/11/25 06:00 02/11/25 17:02 Vancomycin 1,500 Mg/Ns 500 Ml IVPB 250 mls/hr Q12H MATTHEW Administration Trimethoprim/Sulfamethoxazole 106.7 mls @ 106.7 mls/hr 02/11/25 15:00 02/11/25 15:39 6.7 ml/ Dextrose IVPB Infused Q8HR MATTHEW Infusion Lidocaine 2 patch 02/07/25 09:00 02/11/25 08:24 Lidocaine 5% Patch TRANSDERM 2 patch QAM MATTHEW Administration Lorazepam 1 mg 02/11/25 10:49 02/11/25 11:44 Lorazepam (*Crx) 1 Mg Tablet PO 1 mg Q4H PRN Administration Anxiety Oxycodone HCl 10 mg 02/09/25 09:00 02/11/25 08:24 Oxycodone Hcl (*Crx) 10 Mg Tab Sr 12hr PO 10 mg Q12HR MATTHEW Administration Polyethylene Glycol 17 gm 02/10/25 09:00 02/11/25 08:24 Polyethylene Glycol 3350 17 Gm Powd.Pack PO 17 gm QAM MATTHEW Administration Senna/Docusate Sodium 1 tab 02/09/25 21:00 02/10/25 21:55 Senna/Docusate Sodium Tablet PO 1 tab HS MATTHEW Administration Tramadol HCl 25 mg 02/10/25 16:48 02/10/25 17:25 Tramadol Hcl (*Crx) 25 Mg Tablet PO 25 mg Q6H PRN Administration Pain Rated 4-6 Radiology Results: ITS Impressions Chest/Abdomen/Pelvis CT 02/07/25 07:15 IMPRESSION: 1. Mild right hydroureter and mild left hydronephrosis and hydroureter with bilateral urothelial enhancement, consistent with bilateral pyelitis. 2. Gallbladder distention, which may be secondary to fasting. Correlate with physical exam to exclude acute cholecystitis. 3. 3.5 cm left adrenal mass. 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 4. 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 Chest X-Ray 02/08/25 10:45 IMPRESSION: 1. Mild bibasilar atelectasis. Cervical Spine CT 02/10/25 19:07 Impression: Postsurgical changes detailed above. There is no gross osseous destruction to suggest acute osteomyelitis, there is sclerosis of the vertebral bodies of C6 and C7, chronic osteomyelitis is not excluded. Contrast-enhanced MRI is recommended Thoracic/Lumbar Spine CT 02/10/25 19:17 Impression: 1. No evidence of osteomyelitis. There remains clinical concern contrast- enhanced MRI is recommended. 2. Incidental findings above Cervical Spine MRI 02/11/25 14:51 IMPRESSION: 1. Increased cord signal centered at C6-C7 which suggests sequela of either prior trauma or central canal stenosis given the anterior spinal fusion with suggestion of some prior anterior vertebral body height loss at C6 and the prior lower cervical posterior decompression with C5-C7 laminectomies. 2. Otherwise mild cervical spondylosis. No abscess, osteomyelitis or other findings to suggest infection. Lumbar Spine MRI 02/11/25 14:57 IMPRESSION: 1. Severe degenerative changes in the lower lumbar spine with multilevel spinal canal stenosis at L3-4, L4-5 and L5-S1; stenosis is most severe at L3-4 as detailed above. 2. A 5 x 4 mm possible tiny peripherally enhancing fluid collection along the posterior margin of L4 at the distal margin of the extruded disc at the L3-4 level likely reactive inflammatory change but tiny developing infection or abscess is not excluded. Correlate with C-reactive protein and white count. Follow-up lumbar spine MRI as clinically appropriate if patient is managed conservatively. 3. No other suspiciously enhancing lesions or masses. No abscess or abnormal fluid collection. Thoracic Spine MRI 02/11/25 15:26 IMPRESSION: 1. No evidence of osteomyelitis, discitis or abscess. No suspicious enhancing lesions seen within the vertebral column or the spinal cord. 2. Moderate to large central disc protrusions at T7-T8 and T11-12. Labs Labs: Laboratory Results - last 24 hr 02/11/25 05:04 WBC 2.4 L RBC 3.13 L Hgb 8.8 L Hct 28.1 L MCV 89.8 MCH 28.1 MCHC 31.3 L RDW 14.3 Plt Count 160 MPV 8.6 Sodium 136 L Potassium 4.2 Chloride 107 Carbon Dioxide 25 Anion Gap 4 BUN 13 Creatinine 0.50 L Estim Creat Clear Calc 136 Estimated GFR > 60 Glucose 83 Calcium 7.9 L Phosphorus 3.1 Magnesium 1.9 Total Bilirubin 0.4 AST 24 ALT 15 Alkaline Phosphatase 82 Total Protein 6.3 Albumin 3.0 L Procalcitonin 3.4
[2025-02-11 18:03] LABS: CRP 4.1 mg/dL (<1.0)
[2025-02-12] VITALS (11 sets, daily range): BP systolic 106–147; BP diastolic 57–81; PULSE 45–78; RESP 16–18; TEMP 36.4–36.6; O2SAT 100
[2025-02-12 05:19] LABS: Hematocrit 28.6 % (37.0-47.0); Hemoglobin 8.7 g/dL (12.0-15.0); Mean Corpuscular HGB Conc 30.4 g/dl (32-36); Mean Corpuscular Hemoglobin 28.2 pg (26-34); Mean Corpuscular Volume 92.9 fl (80-100); Platelet Count Result 168 k/mm3 (150-375); Red Blood Count 3.08 M/mm3 (4.2-5.4); White Blood Count 4.4 K/mm3 (4.5-10.0)
[2025-02-12 05:33] LABS: Alanine Aminotransferase 15 U/L (6-35); Albumin Level 3.2 g/dL (3.5-5.1); Alkaline Phosphatase 77 U/L (38-126); Anion Gap 4 mmol/L (4-12); Aspartate Amino Transferase 25 U/L (14-36); Bilirubin,Total 0.4 mg/dL (0.2-1.3); Blood Urea Nitrogen 11 mg/dL (7-17); CRP 2.6 mg/dL (<1.0); Calcium 7.8 mg/dL (8.4-10.2); Carbon Dioxide 23 mmol/L (22-30); Chloride 108 mmol/L (98-107); Estimated CRCL calculation 152 ml/min; Estimated Glomerular Filt Rate > 60; Glucose 92 mg/dL (65-110); Magnesium 2.3 mg/dL (1.6-2.3); Potassium 4.5 mmol/L (3.4-5.0); Sodium 135 mmol/L (137-145); Total Protein 6.6 g/dL (6.3-8.2)
[2025-02-12 05:56] LABS: Procalcitonin 1.8 ng/mL
[2025-02-12] MEDS: GABAPENTIN 400 MG CAPSULE 800 MG PO ×3 (06:02→21:31)
[2025-02-12] MEDS: BACLOFEN 10 MG TABLET PO ×3 (06:02→21:31)
[2025-02-12] MEDS: traMADol HCL (*CRX) 25 MG TABLET PO (06:07)
[2025-02-12] MEDS: VANCOMYCIN 1,500 MG/NS 500 ML 1,500 MG/500 ML BAG 250 MG IVPB (07:16)
[2025-02-12] MEDS: ENOXAPARIN 40 MG/0.4 ML SYRINGE SUB-Q (08:03)
[2025-02-12] MEDS: oxyCODONE HCL (*CRX) 10 MG TAB SR 12HR PO ×2 (08:04→21:31)
[2025-02-12] MEDS: LIDOCAINE 5% PATCH 2 PATCH TRANSDERM (08:05)
--- NOTE | 2025-02-12 10:18 | P.PNINF_ITS ---
Progress Note: A&P Assessment and Plan (1) Chronic indwelling Ng catheter: Code(s): Z97.8 - Presence of other specified devices Status: Acute (2) Paraplegia: Code(s): G82.20 - Paraplegia, unspecified Status: Acute (3) UTI (urinary tract infection): Code(s): N39.0 - Urinary tract infection, site not specified Status: Acute (4) E. coli UTI: Code(s): N39.0 - Urinary tract infection, site not specified; B96.20 - Unspecified Escherichia coli [E. coli] as the cause of diseases classified elsewhere Status: Acute (5) E coli bacteremia: Code(s): R78.81 - Bacteremia; B96.20 - Unspecified Escherichia coli [E. coli] as the cause of diseases classified elsewhere Status: Acute (6) Septic shock: Code(s): A41.9 - Sepsis, unspecified organism; R65.21 - Severe sepsis with septic shock Status: Acute Plan Impression: 1. Complicated E coli UTI, CAUTI, with E coli bacteremia. 2. Acute sepsis with shock on presentation, overall resolved 3. Post admission persistence of intermittent daily fever despite appropriate antibiotics. -- fever appears to be resolving. -- no clinical evidence of pneumonia. -- no rash but would still consider the possibility of penicillin -associated febrile reaction. Leukopenia may also be associated with drug reaction. -- history of cervical laminectomies and recent cervical osteomyelitis status post extended IV antibiotics. Currently with MRI evidence of residual change but doubt active cervical infection at this time. -- minimal collection of reactive fluid noted and area of L3-L4 disc protrusion . Doubt true abscess. 4. History of paraplegia. 5. History of hive allergy to penicillin. Plan: -- to avoid the possibility of penicillin -associated agents triggering a drug reaction including fever and leukopenia have changed meropenem to IV Bactrim which will provide continued coverage for complicated UTI with bacteremia. Okay now to change from IV Bactrim to oral, 2 double strength twice daily. consider today day 5 of 7 appropriate antibiotics. Monitor temperature and white blood cell count after antibiotic change. -- based on cultures to date, okay to discontinue vancomycin. Patient was seen via video telehealth consultation with the assistance of staff. Chart, data, and patient independently reviewed. Patient was located at [facility] while I was located in my [place] office. Received verbal consent from patient. Subjective Date/time seen: 02/12/25 10:18 Interval history: 02/12/2025: Afebrile stable vital signs. Has been afebrile since 02/08. White blood cell count now 4.4. States that she is feeling better. Still maintaining a Ng catheter. Blood cultures 02/10 pending. Blood cultures 02/09 negative at 24 hours. Review of Systems Review of Systems: All systems reviewed & are unremarkable except as noted in HPI and below Exam Narrative: Awake, alert, sitting up in bed, and interactive. Continues to state she is feeling better. No respiratory difficulty. No shortness of breath or significant cough. No abdominal distention she denies diarrhea. Ng catheter in place. This was placed during this hospitalization. No evidence of rash. Objective Data Vital Signs Vital Signs: Vital Signs - 24 hr 02/11/25:02/11/25 12:04 02/11/25 16:00 Temperature 97.4 F L Pulse Rate 58 L 68 Respiratory Rate 16 Blood Pressure 123/74 Pulse Oximetry 98 Oxygen Delivery Room Air 02/11/25 16:02 02/11/25 19:48 02/11/25 20:00 Temperature 97.6 F Pulse Rate 61 68 68 Respiratory Rate 16 16 Blood Pressure 139/74 Pulse Oximetry 97 97 Oxygen Delivery Room Air 02/11/25 20:00 02/12/25 00:00 02/12/25 04:00 Temperature Pulse Rate 63 45 L 51 L Respiratory Rate Blood Pressure Pulse Oximetry Oxygen Delivery 02/12/25 06:53 02/12/25 07:50 02/12/25 08:00 Temperature 97.5 F L 97.8 F Pulse Rate 61 72 51 L Respiratory Rate 16 18 Blood Pressure 147/60 H 126/63 Pulse Oximetry 100 100 Oxygen Delivery 02/12/25 08:05 Temperature Pulse Rate Respiratory Rate 18 Blood Pressure Pulse Oximetry 100 Oxygen Delivery Room Air Intake/Output Intake/Output: Intake & Output 02/09/25 02/10/25 02/11/25 02/12/25 23:59 23:59 23:59 23:59 Intake Total 1716 2606 2623.4 906.7 Output Total 1925 2850 3500 1000 Balance -209 -244 -876.6 -93.3 Meds/Results Medications: Active Medications Generic Name Dose Route Start Last Admin Trade Name Freq PRN Reason Stop Dose Admin Acetaminophen 650 mg 02/08/25 12:13 02/10/25 12:16 Acetaminophen 325 Mg Tablet PO 650 mg Q4H PRN Administration Mild Pain (1-3) or Fever Baclofen 10 mg 02/07/25 22:00 02/12/25 06:02 Baclofen 10 Mg Tablet PO 10 mg Q8HR MATTHEW Administration Enoxaparin Sodium 40 mg 02/07/25 09:00 02/12/25 08:03 Enoxaparin 40 Mg/0.4 Ml Syringe SUB-Q 40 mg DAILY MATTHEW Administration Gabapentin 800 mg 02/07/25 09:00 02/12/25 06:02 Gabapentin 400 Mg Capsule PO 800 mg Q8HR MATTHEW Administration Vancomycin HCl 1,500 mg in 500 mls @ 250 mls/hr 02/11/25 06:00 02/12/25 09:15 Vancomycin 1,500 Mg/Ns 500 Ml IVPB Infused Q12H MATTHEW Infusion Trimethoprim/Sulfamethoxazole 106.7 mls @ 106.7 mls/hr 02/11/25 15:00 02/12/25 07:07 6.7 ml/ Dextrose IVPB Infused Q8HR MATTHEW Infusion Lidocaine 2 patch 02/07/25 09:00 02/12/25 08:05 Lidocaine 5% Patch TRANSDERM 2 patch QAM MATTHEW Administration Oxycodone HCl 10 mg 02/09/25 09:00 02/12/25 08:04 Oxycodone Hcl (*Crx) 10 Mg Tab Sr 12hr PO 10 mg Q12HR MATTHEW Administration Polyethylene Glycol 17 gm 02/10/25 09:00 02/12/25 08:03 Polyethylene Glycol 3350 17 Gm Powd.Pack PO 17 gm QAM MATTHEW Administration Senna/Docusate Sodium 1 tab 02/09/25 21:00 02/11/25 21:40 Senna/Docusate Sodium Tablet PO Not Given HS [facility] Tramadol HCl 25 mg 02/10/25 16:48 02/12/25 06:07 Tramadol Hcl (*Crx) 25 Mg Tablet PO 25 mg Q6H PRN Administration Pain Rated 4-6 Radiology Results: ITS Impressions Chest/Abdomen/Pelvis CT 02/07/25 07:15 IMPRESSION: 1. Mild right hydroureter and mild left hydronephrosis and hydroureter with bilateral urothelial enhancement, consistent with bilateral pyelitis. 2. Gallbladder distention, which may be secondary to fasting. Correlate with physical exam to exclude acute cholecystitis. 3. 3.5 cm left adrenal mass. 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 4. 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 Chest X-Ray 02/08/25 10:45 IMPRESSION: 1. Mild bibasilar atelectasis. Cervical Spine CT 02/10/25 19:07 Impression: Postsurgical changes detailed above. There is no gross osseous destruction to suggest acute osteomyelitis, there is sclerosis of the vertebral bodies of C6 and C7, chronic osteomyelitis is not excluded. Contrast-enhanced MRI is recommended Thoracic/Lumbar Spine CT 02/10/25 19:17 Impression: 1. No evidence of osteomyelitis. There remains clinical concern contrast- enhanced MRI is recommended. 2. Incidental findings above Cervical Spine MRI 02/11/25 14:51 IMPRESSION: 1. Increased cord signal centered at C6-C7 which suggests sequela of either prior trauma or central canal stenosis given the anterior spinal fusion with suggestion of some prior anterior vertebral body height loss at C6 and the prior lower cervical posterior decompression with C5-C7 laminectomies. 2. Otherwise mild cervical spondylosis. No abscess, osteomyelitis or other findings to suggest infection. Lumbar Spine MRI 02/11/25 14:57 IMPRESSION: 1. Severe degenerative changes in the lower lumbar spine with multilevel spinal canal stenosis at L3-4, L4-5 and L5-S1; stenosis is most severe at L3-4 as detailed above. 2. A 5 x 4 mm possible tiny peripherally enhancing fluid collection along the posterior margin of L4 at the distal margin of the extruded disc at the L3-4 level likely reactive inflammatory change but tiny developing infection or abscess is not excluded. Correlate with C-reactive protein and white count. Follow-up lumbar spine MRI as clinically appropriate if patient is managed conservatively. 3. No other suspiciously enhancing lesions or masses. No abscess or abnormal fluid collection. Thoracic Spine MRI 02/11/25 15:26 IMPRESSION: 1. No evidence of osteomyelitis, discitis or abscess. No suspicious enhancing lesions seen within the vertebral column or the spinal cord. 2. Moderate to large central disc protrusions at T7-T8 and T11-12. Labs Labs: Laboratory Results - last 24 hr 02/11/25 02/12/25 05:04 05:02 WBC 4.4 L RBC 3.08 L Hgb 8.7 L Hct 28.6 L MCV 92.9 MCH 28.2 MCHC 30.4 L RDW 14.6 H Plt Count 168 MPV 9.3 Sodium 135 L Potassium 4.5 Chloride 108 H Carbon Dioxide 23 Anion Gap 4 BUN 11 Creatinine 0.44 L Estim Creat Clear Calc 152 Estimated GFR > 60 Glucose 92 Calcium 7.8 L Phosphorus 3.1 Magnesium 2.3 Total Bilirubin 0.4 AST 25 ALT 15 Alkaline Phosphatase 77 C-Reactive Protein 4.1 H 2.6 H Total Protein 6.6 Albumin 3.2 L Procalcitonin 1.8 Vancomycin Trough 18.9
--- NOTE | 2025-02-12 11:36 | PC.NURSE ---
On 02/12/25, the student, [Janessa Jolly], provided care and completed [facility] documentation on this patient. I have reviewed the student's documentation and agree with the findings.
[2025-02-12] MEDS: LORazepam (*CRX) 1 MG TABLET PO (12:09)
[2025-02-12] MEDS: SULFAMETHOXAZOLE/TRIMETHOPRIM 800/160 MG DS TABLET 1 TAB PO (12:35)
--- NOTE | 2025-02-12 12:40 | PC.NURSE ---
To MRI via stretcher.
--- NOTE | 2025-02-12 13:38 | PC.NURSE ---
Returned from MRI via stretcher.
--- NOTE | 2025-02-12 15:34 | PM.IMPN ---
Progress Note: A&P Assessment and Plan (1) Septic shock: Code(s): A41.9 - Sepsis, unspecified organism; R65.21 - Severe sepsis with septic shock Status: Acute Assessment and Plan: UA suggestive UTI CT abdomen pelvis IMPRESSION: 1. Mild right hydroureter and mild left hydronephrosis and hydroureter with bilateral urothelial enhancement, consistent with bilateral pyelitis. 2. Gallbladder distention, which may be secondary to fasting. Correlate with physical exam to exclude acute cholecystitis. 3. 3.5 cm left adrenal mass. 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 4. 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 Received adequate fluid resuscitation, fluids discontinued Ng change Previous am meropenem, on IV Bactrim. Appreciate infectious disease recommendations (2) Chronic indwelling Ng catheter: Code(s): Z97.8 - Presence of other specified devices Status: Acute Assessment and Plan: Ng was changed in the ER (3) UTI (urinary tract infection): Code(s): N39.0 - Urinary tract infection, site not specified Status: Acute Assessment and Plan: See above (4) Paraparesis: Code(s): G82.20 - Paraplegia, unspecified Status: Acute Assessment and Plan: Continue muscle relaxant and peripheral neuropathy medications as per home regimen Obtain records from [facility] switch to oxycodone which she takes for at home. Constipation, MiraLax. (5) Chest pain: Code(s): R07.9 - Chest pain, unspecified Status: Acute Assessment and Plan: Patient complains chest pain, along with some shortness of breath, was given aspirin -EKG showed intraventricular conduction delay -mild elevation in troponin, could be related to type 2 infarct secondary to septic shock and infection Troponins were trending down, EKG did not show any ST-T changes 02/08: Echocardiogram Summary 1. Definity contrast administered improved wall motion interpretation. 2. Left ventricular chamber dimension is normal. 3. Left ventricular systolic function is normal, estimated at 60-65. 4. The left ventricular diastolic function is normal. 5. E/e' 6 is not elevated. 6. Left atrial chamber dimension is moderately enlarged. 7. Right atrial chamber dimension is mildly enlarged. 8. There is trace tricuspid valve regurgitation. 9. No pulmonary hypertension, estimated pulmonary arterial systolic pressure is 26 mmHg. (6) Fever: Code(s): R50.9 - Fever, unspecified Status: Acute Assessment and Plan: Urine culture and blood cultures demonstrated E coli pansensitive. Patient was on meropenem, she developed fevers and leukopenia. Began to improve, and infectious disease consultants changed meropenem to IV Bactrim due to possible penicillin associated fever our reaction. Continues to improve. Vancomycin discontinued. MRI spine completed, doubt active cervical infection. Abdomen MRI pending for adrenal lesion. Follow-up. Plan DVT prophylaxis -Lovenox Nutrition -diet ordered Code Status - Full Code Wound care per unit protocol. Continue telemetry or sepsis. Shock has resolved, Levophed discontinued. Discharge back to home health with follow-up neurosurgery, Infectious Disease if needed, and PCP when infectious disease feels comfortable signing off and no further issues. Subjective Date/time seen: 02/12/25 15:34 Interval history: No major acute overnight events. Patient rest comfortably and denies fever, diaphoresis, clamminess. She reports tramadol does not help and would like a change in her breakthrough pain medications. Review of Systems Review of Systems: All systems reviewed & are unremarkable except as noted in HPI and below (Subjective) Exam Const: General: comfortable and no acute distress Other: A&O x4 HENMT: Mouth: Yes moist mucous membranes Eyes: Pupils: Equal, round and reactive pupils present Neck: Neck: supple Resp: Effort & Inspection: normal respiratory effort Auscultation: clear to auscultation bilaterally Cardio: Rate: regular rate Rhythm: regular rhythm GI: GI Palp: Yes Soft to palpation and No Tenderness to palpation present (GI) Neuro: Other: Able to wiggle toes. Right upper extremity 3/5 strength on lateral extension of shoulder, left upper extremity 2/5 strength Extrem: General: no edema Objective Data Vital Signs Vital Signs: Vital Signs - 24 hr 02/11/25 16:00 02/11/25 16:02 02/11/25 19:48 Temperature 97.4 F L 97.6 F Pulse Rate 68 61 68 Respiratory Rate 16 16 Blood Pressure 123/74 139/74 Pulse Oximetry 98 97 Oxygen Delivery 02/11/25 20:00 02/11/25 20:00 02/12/25 00:00 Temperature Pulse Rate 68 63 45 L Respiratory Rate 16 Blood Pressure Pulse Oximetry 97 Oxygen Delivery Room Air 02/12/25 04:00 02/12/25 06:53 02/12/25 07:50 Temperature 97.5 F L 97.8 F Pulse Rate 51 L 61 72 Respiratory Rate 16 18 Blood Pressure 147/60 H 126/63 Pulse Oximetry 100 100 Oxygen Delivery 02/12/25 08:00 02/12/25 08:05 02/12/25 11:00 Temperature Pulse Rate 51 L 51 L Respiratory Rate 18 18 Blood Pressure Pulse Oximetry 100 100 Oxygen Delivery Room Air Room Air 02/12/25 12:03 Temperature Pulse Rate 56 L Respiratory Rate Blood Pressure Pulse Oximetry Oxygen Delivery Intake/Output Intake/Output: Intake & Output 02/09/25 02/10/25 02/11/25 02/12/25 23:59 23:59 23:59 23:59 Intake Total 1716 2606 2623.4 996.7 Output Total 1925 2850 3500 1000 Balance -209 -244 -876.6 -3.3 Meds/Results Medications: Active Medications Generic Name Dose Route Start Last Admin Trade Name Freq PRN Reason Stop Dose Admin Acetaminophen 650 mg 02/08/25 12:13 02/10/25 12:16 Acetaminophen 325 Mg Tablet PO 650 mg Q4H PRN Administration Mild Pain (1-3) or Fever Baclofen 10 mg 02/07/25 22:00 02/12/25 12:35 Baclofen 10 Mg Tablet PO 10 mg Q8HR MATTHEW Administration Enoxaparin Sodium 40 mg 02/07/25 09:00 02/12/25 08:03 Enoxaparin 40 Mg/0.4 Ml Syringe SUB-Q 40 mg DAILY MATTHEW Administration Gabapentin 800 mg 02/07/25 09:00 02/12/25 12:35 Gabapentin 400 Mg Capsule PO 800 mg Q8HR MATTHEW Administration Lidocaine 2 patch 02/07/25 09:00 02/12/25 08:05 Lidocaine 5% Patch TRANSDERM 2 patch QAM MATTHEW Administration Oxycodone HCl 10 mg 02/12/25 15:35 Oxycodone Hcl (*Crx) 10 Mg Tab Sr 12hr PO Q8H MATTHEW Polyethylene Glycol 17 gm 02/10/25 09:00 02/12/25 08:03 Polyethylene Glycol 3350 17 Gm Powd.Pack PO 17 gm QAM MATTHEW Administration Senna/Docusate Sodium 1 tab 02/09/25 21:00 02/11/25 21:40 Senna/Docusate Sodium Tablet PO Not Given HS MATTHEW Trimethoprim/Sulfamethoxazole 2 tab 02/12/25 21:00 Sulfamethoxazole/Trimethoprim 800/160 Mg Ds Tablet PO Q12HR [facility] Radiology Results: ITS Impressions Chest/Abdomen/Pelvis CT 02/07/25 07:15 IMPRESSION: 1. Mild right hydroureter and mild left hydronephrosis and hydroureter with bilateral urothelial enhancement, consistent with bilateral pyelitis. 2. Gallbladder distention, which may be secondary to fasting. Correlate with physical exam to exclude acute cholecystitis. 3. 3.5 cm left adrenal mass. 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 4. 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 Chest X-Ray 02/08/25 10:45 IMPRESSION: 1. Mild bibasilar atelectasis. Cervical Spine CT 02/10/25 19:07 Impression: Postsurgical changes detailed above. There is no gross osseous destruction to suggest acute osteomyelitis, there is sclerosis of the vertebral bodies of C6 and C7, chronic osteomyelitis is not excluded. Contrast-enhanced MRI is recommended Thoracic/Lumbar Spine CT 02/10/25 19:17 Impression: 1. No evidence of osteomyelitis. There remains clinical concern contrast-enhanced MRI is recommended. 2. Incidental findings above Cervical Spine MRI 02/11/25 14:51 IMPRESSION: 1. Increased cord signal centered at C6-C7 which suggests sequela of either prior trauma or central canal stenosis given the anterior spinal fusion with suggestion of some prior anterior vertebral body height loss at C6 and the prior lower cervical posterior decompression with C5-C7 laminectomies. 2. Otherwise mild cervical spondylosis. No abscess, osteomyelitis or other findings to suggest infection. Lumbar Spine MRI 02/11/25 14:57 IMPRESSION: 1. Severe degenerative changes in the lower lumbar spine with multilevel spinal canal stenosis at L3-4, L4-5 and L5-S1; stenosis is most severe at L3-4 as detailed above. 2. A 5 x 4 mm possible tiny peripherally enhancing fluid collection along the posterior margin of L4 at the distal margin of the extruded disc at the L3-4 level likely reactive inflammatory change but tiny developing infection or abscess is not excluded. Correlate with C-reactive protein and white count. Follow-up lumbar spine MRI as clinically appropriate if patient is managed conservatively. 3. No other suspiciously enhancing lesions or masses. No abscess or abnormal fluid collection. Thoracic Spine MRI 02/11/25 15:26 IMPRESSION: 1. No evidence of osteomyelitis, discitis or abscess. No suspicious enhancing lesions seen within the vertebral column or the spinal cord. 2. Moderate to large central disc protrusions at T7-T8 and T11-12. Abdomen MRI 02/12/25 13:53 IMPRESSION: 1. 3.0 x 2.6 cm left adrenal adenoma. 2. Hepatosplenomegaly which may be related to body habitus. 3. Cholelithiasis. 4. Small bilateral posterior layering pleural effusions. Labs Labs: Laboratory Results - last 24 hr 02/11/25 02/12/25 05:04 05:02 WBC 4.4 L RBC 3.08 L Hgb 8.7 L Hct 28.6 L MCV 92.9 MCH 28.2 MCHC 30.4 L RDW 14.6 H Plt Count 168 MPV 9.3 Sodium 135 L Potassium 4.5 Chloride 108 H Carbon Dioxide 23 Anion Gap 4 BUN 11 Creatinine 0.44 L Estim Creat Clear Calc 152 Estimated GFR > 60 Glucose 92 Calcium 7.8 L Phosphorus 3.1 Magnesium 2.3 Total Bilirubin 0.4 AST 25 ALT 15 Alkaline Phosphatase 77 C-Reactive Protein 4.1 H 2.6 H Total Protein 6.6 Albumin 3.2 L Procalcitonin 1.8 Vancomycin Trough 18.9
[2025-02-12] MEDS: oxyCODONE HCL (*CRX) 5 MG TAB IR PO (15:48)
[2025-02-12] MEDS: SULFAMETHOXAZOLE/TRIMETHOPRIM 800/160 MG DS TABLET 2 TAB PO (21:31)
[2025-02-13] VITALS (9 sets, daily range): BP systolic 103–143; BP diastolic 57–76; PULSE 48–74; RESP 16–20; TEMP 36.6–36.7; O2SAT 96–100
[2025-02-13] MEDS: oxyCODONE HCL (*CRX) 5 MG TAB IR PO ×3 (04:20→22:41)
[2025-02-13 04:29] LABS: Hematocrit 28.1 % (37.0-47.0); Hemoglobin 8.8 g/dL (12.0-15.0); Immature Granulocyte Percent A 1.4 % (0-0.5); Lymphocytes Absolute Auto 1.95 K/mm3 (0.9-3.2); Mean Corpuscular HGB Conc 31.3 g/dl (32-36); Mean Corpuscular Hemoglobin 28.5 pg (26-34); Mean Corpuscular Volume 90.9 fl (80-100); Nucleated Red Blood Cells Absolute Auto 0.000 K/mm3 (0.0-0.012); Nucleated Red Blood Cells Perc 0.0 % (0.0-0.2); Platelet Count Result 174 k/mm3 (150-375); Red Blood Count 3.09 M/mm3 (4.2-5.4); White Blood Count 5.0 K/mm3 (4.5-10.0)
[2025-02-13 04:41] LABS: Anion Gap 4 mmol/L (4-12); Blood Urea Nitrogen 11 mg/dL (7-17); Calcium 8.3 mg/dL (8.4-10.2); Carbon Dioxide 25 mmol/L (22-30); Chloride 107 mmol/L (98-107); Estimated CRCL calculation 138 ml/min; Estimated Glomerular Filt Rate > 60; Glucose 81 mg/dL (65-110); Magnesium 2.2 mg/dL (1.6-2.3); Potassium 4.7 mmol/L (3.4-5.0); Sodium 136 mmol/L (137-145)
[2025-02-13] MEDS: BACLOFEN 10 MG TABLET PO ×3 (05:21→21:20)
[2025-02-13] MEDS: GABAPENTIN 400 MG CAPSULE 800 MG PO ×3 (05:21→21:20)
[2025-02-13] MEDS: LIDOCAINE 5% PATCH 2 PATCH TRANSDERM (08:54)
[2025-02-13] MEDS: SULFAMETHOXAZOLE/TRIMETHOPRIM 800/160 MG DS TABLET 2 TAB PO ×2 (08:54→21:20)
[2025-02-13] MEDS: oxyCODONE HCL (*CRX) 10 MG TAB SR 12HR PO ×2 (08:54→21:20)
[2025-02-13] MEDS: ENOXAPARIN 40 MG/0.4 ML SYRINGE SUB-Q (08:55)
--- NOTE | 2025-02-13 10:30 | PCNFU ---
Nutrition Follow-Up Complete: Increased Protein needs as related to wound has evidenced by pressure ulcer reported. Goal:Meet estimated nutritional needs Patient is meeting goal. No new goal. Pt current nutrition is Regular with Nimesh BID. Last recorded weight is 96.4 kg, up from 92.5 kg on admit. Bowel Motility: Last reported BM 02/12 Labs Reviewed: Cr 0.49, Na 136, Hct 28.1, Hgb 8.8 Meds Noted:Miralax, Senokot Skin: Stage II-sacrum. Additional Notes: Patient is tolerating regular diet. Oral intake > 75% of meals. Nimesh BID for wound healing providing an additional 90 kcal/7 gm glutamine/7 gm polish/2.4 gm protein. Will monitor weight, labs, skin, diet orders, meds every 7 days.
--- NOTE | 2025-02-13 11:34 | WPDINFPN2 ---
Progress Note: A&P Assessment and Plan (1) Chronic indwelling Ng catheter: Code(s): Z97.8 - Presence of other specified devices Status: Acute (2) Paraplegia: Code(s): G82.20 - Paraplegia, unspecified Status: Acute (3) UTI (urinary tract infection): Code(s): N39.0 - Urinary tract infection, site not specified Status: Acute (4) E. coli UTI: Code(s): N39.0 - Urinary tract infection, site not specified; B96.20 - Unspecified Escherichia coli [E. coli] as the cause of diseases classified elsewhere Status: Acute (5) E coli bacteremia: Code(s): R78.81 - Bacteremia; B96.20 - Unspecified Escherichia coli [E. coli] as the cause of diseases classified elsewhere Status: Acute (6) Septic shock: Code(s): A41.9 - Sepsis, unspecified organism; R65.21 - Severe sepsis with septic shock Status: Acute Plan Impression: 1. Complicated E coli UTI, CAUTI, with E coli bacteremia. 2. Acute sepsis with shock on presentation, overall resolved 3. Post admission persistence of intermittent daily fever despite appropriate antibiotics. -- fever appears to be resolving. -- no clinical evidence of pneumonia. -- no rash but would still consider the possibility of penicillin -associated febrile reaction. Leukopenia may also be associated with drug reaction. -- history of cervical laminectomies and recent cervical osteomyelitis status post extended IV antibiotics. Currently with MRI evidence of residual change but doubt active cervical infection at this time. -- minimal collection of reactive fluid noted and area of L3-L4 disc protrusion . Doubt true abscess. 4. Repeat blood cultures negative in 02/09 blood culture x2 sets; positive for Gram-positive cocci in 1 bottle in a 02/10 blood cultures 5. Possible diarrhea. 6. History of paraplegia. 7. History of hive allergy to penicillin. Plan: -- to avoid the possibility of penicillin -associated agents triggering a drug reaction including fever and leukopenia have changed meropenem to IV Bactrim which will provide continued coverage for complicated UTI with bacteremia. Okay now to change from IV Bactrim to oral, 2 double strength twice daily. consider today day 6 of 7 appropriate antibiotics. Monitor temperature and white blood cell count after antibiotic change. -- high probability 11/9 blood cultures represent contamination and, therefore, will not restart IV vanc but will continue to monitor. -- monitor diarrhea and if truly present and persists with workup for C difficile colitis. Patient was seen via video telehealth consultation with the assistance of staff. Chart, data, and patient independently reviewed. Patient was located at [facility] while I was located in my [place] office. Received verbal consent from patient. Subjective Date/time seen: 02/13/25 11:34 Interval history: 02/12/2025: Afebrile stable vital signs. Has been afebrile since 02/08. White blood cell count now 4.4. States that she is feeling better. Still maintaining a Ng catheter. 02/13/2025: Afebrile with white blood cell count 5.0. May be developing some diarrhea. MRI of the abdomen suggest adrenal adenoma as well as hepatic splenomegaly. Blood cultures 02/10 One set with Gram-positive cocci in 1 bottle and 2nd setpending. Blood cultures 02/09 negative at 48 hours. Review of Systems Review of Systems: All systems reviewed & are unremarkable except as noted in HPI and below Exam Narrative: Awake, alert, sitting up In a chair, and interactive. Continues to state she is feeling better may be developing some loose stools. No respiratory difficulty. No shortness of breath or significant cough. No abdominal distention. Ng catheter in place. This was placed during this hospitalization. No evidence of rash. Objective Data Vital Signs Vital Signs: Vital Signs - 24 hr 02/12/25 12:03 02/12/25 16:00 02/12/25 16:00 Temperature 97.6 F Pulse Rate 56 L 54 L 78 Respiratory Rate 16 Blood Pressure 142/81 H Pulse Oximetry 100 Oxygen Delivery 02/12/25 20:00 02/12/25 20:41 02/12/25 21:20 Temperature 97.7 F Pulse Rate 69 69 Respiratory Rate 18 Blood Pressure 106/57 L Pulse Oximetry 100 Oxygen Delivery Room Air 02/13/25 00:00 02/13/25 04:00 02/13/25 04:34 Temperature 97.9 F Pulse Rate 54 L 55 L 62 Respiratory Rate 20 Blood Pressure 113/72 Pulse Oximetry 100 Oxygen Delivery 02/13/25 08:00 02/13/25 08:55 Temperature Pulse Rate 48 L Respiratory Rate Blood Pressure Pulse Oximetry Oxygen Delivery Room Air Intake/Output Intake/Output: Intake & Output 02/10/25 02/11/25 02/12/25 02/13/25 23:59 23:59 23:59 23:59 Intake Total 2606 2623.4 1526.7 540 Output Total 2850 3500 2600 1500 Balance -244 -876.6 -1073.3 -960 Meds/Results Medications: Active Medications Generic Name Dose Route Start Last Admin Trade Name Freq PRN Reason Stop Dose Admin Acetaminophen 650 mg 02/08/25 12:13 02/10/25 12:16 Acetaminophen 325 Mg Tablet PO 650 mg Q4H PRN Administration Mild Pain (1-3) or Fever Baclofen 10 mg 02/07/25 22:00 02/13/25 05:21 Baclofen 10 Mg Tablet PO 10 mg Q8HR MATTHEW Administration Enoxaparin Sodium 40 mg 02/07/25 09:00 02/13/25 08:55 Enoxaparin 40 Mg/0.4 Ml Syringe SUB-Q 40 mg DAILY MATTHEW Administration Gabapentin 800 mg 02/07/25 09:00 02/13/25 05:21 Gabapentin 400 Mg Capsule PO 800 mg Q8HR MATTHEW Administration Lidocaine 2 patch 02/07/25 09:00 02/13/25 08:54 Lidocaine 5% Patch TRANSDERM 2 patch QAM MATTHEW Administration Oxycodone HCl 10 mg 02/12/25 21:00 02/13/25 08:54 Oxycodone Hcl (*Crx) 10 Mg Tab Sr 12hr PO 10 mg Q12HR MATTHEW Administration Oxycodone HCl 5 mg 02/12/25 15:38 02/13/25 04:20 Oxycodone Hcl (*Crx) 5 Mg Tab Ir PO 5 mg Q6H PRN Administration Breakthrough Pain Polyethylene Glycol 17 gm 02/10/25 09:00 02/13/25 08:50 Polyethylene Glycol 3350 17 Gm Powd.Pack PO Not Given QAM MATTHEW Senna/Docusate Sodium 1 tab 02/09/25 21:00 02/12/25 21:33 Senna/Docusate Sodium Tablet PO Not Given HS MATTHEW Trimethoprim/Sulfamethoxazole 2 tab 02/12/25 21:00 02/13/25 08:54 Sulfamethoxazole/Trimethoprim 800/160 Mg Ds Tablet PO 2 tab Q12HR MATTHEW Administration Radiology Results: ITS Impressions Chest/Abdomen/Pelvis CT 02/07/25 07:15 IMPRESSION: 1. Mild right hydroureter and mild left hydronephrosis and hydroureter with bilateral urothelial enhancement, consistent with bilateral pyelitis. 2. Gallbladder distention, which may be secondary to fasting. Correlate with physical exam to exclude acute cholecystitis. 3. 3.5 cm left adrenal mass. 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 4. 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 Chest X-Ray 02/08/25 10:45 IMPRESSION: 1. Mild bibasilar atelectasis. Cervical Spine CT 02/10/25 19:07 Impression: Postsurgical changes detailed above. There is no gross osseous destruction to suggest acute osteomyelitis, there is sclerosis of the vertebral bodies of C6 and C7, chronic osteomyelitis is not excluded. Contrast-enhanced MRI is recommended Thoracic/Lumbar Spine CT 02/10/25 19:17 Impression: 1. No evidence of osteomyelitis. There remains clinical concern contrast-enhanced MRI is recommended. 2. Incidental findings above Cervical Spine MRI 02/11/25 14:51 IMPRESSION: 1. Increased cord signal centered at C6-C7 which suggests sequela of either prior trauma or central canal stenosis given the anterior spinal fusion with suggestion of some prior anterior vertebral body height loss at C6 and the prior lower cervical posterior decompression with C5-C7 laminectomies. 2. Otherwise mild cervical spondylosis. No abscess, osteomyelitis or other findings to suggest infection. Lumbar Spine MRI 02/11/25 14:57 IMPRESSION: 1. Severe degenerative changes in the lower lumbar spine with multilevel spinal canal stenosis at L3-4, L4-5 and L5-S1; stenosis is most severe at L3-4 as detailed above. 2. A 5 x 4 mm possible tiny peripherally enhancing fluid collection along the posterior margin of L4 at the distal margin of the extruded disc at the L3-4 level likely reactive inflammatory change but tiny developing infection or abscess is not excluded. Correlate with C-reactive protein and white count. Follow-up lumbar spine MRI as clinically appropriate if patient is managed conservatively. 3. No other suspiciously enhancing lesions or masses. No abscess or abnormal fluid collection. Thoracic Spine MRI 02/11/25 15:26 IMPRESSION: 1. No evidence of osteomyelitis, discitis or abscess. No suspicious enhancing lesions seen within the vertebral column or the spinal cord. 2. Moderate to large central disc protrusions at T7-T8 and T11-12. Abdomen MRI 02/12/25 13:53 IMPRESSION: 1. 3.0 x 2.6 cm left adrenal adenoma. 2. Hepatosplenomegaly which may be related to body habitus. 3. Cholelithiasis. 4. Small bilateral posterior layering pleural effusions. Labs Labs: Laboratory Results - last 24 hr 02/13/25 03:59 WBC 5.0 RBC 3.09 L Hgb 8.8 L Hct 28.1 L MCV 90.9 MCH 28.5 MCHC 31.3 L RDW 14.6 H Plt Count 174 MPV 8.3 Immature Gran % (Auto) 1.4 H Neut % (Auto) 45.4 L Lymph % (Auto) 39.2 Grainger % (Auto) 6.8 Eos % (Auto) 6.6 H Baso % (Auto) 0.6 Lymph # (Auto) 1.95 Grainger # (Auto) 0.3 Eos # (Auto) 0.3 Baso # (Auto) 0.0 Abs Immat Gran (auto) 0.07 H Absolute Neuts (auto) 2.3 Absolute Nucleated RBC 0.000 Nucleated RBC % 0.0 Sodium 136 L Potassium 4.7 Chloride 107 Carbon Dioxide 25 Anion Gap 4 BUN 11 Creatinine 0.49 L Estim Creat Clear Calc 138 Estimated GFR > 60 Glucose 81 Calcium 8.3 L Magnesium 2.2
--- NOTE | 2025-02-13 14:45 | PM.IMPN ---
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 The patient denied having any UTIs prior to the chronic indwelling Lezama catheter. -the patient became hypotensive and had tachycardia. She stated that her temperature was over 102 at home. -the the radiopharmacist has been notified per ED provider. -the patient was started on meropenem pending cultures. -continue to manage her lactic levels. -urinalysis reveals 3+ leukocyte esterase, wbc's 21-50, and urine bacteria 4+. -vasopressor support for central line that was placed per ED provider. -she received 3 L of IV bolus in the emergency room. 02/13: Resolved. Pt no longer has CVC, on med surg unit. VSS. Labs stable, will continue to trend. 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 The patient denied having any UTIs prior to the chronic indwelling Lezama catheter. -the patient became hypotensive and had tachycardia. She stated that her temperature was over 102 at home. -the the radiopharmacist has been notified per ED provider. -the patient was started on meropenem pending cultures. -continue to manage her lactic levels. -urinalysis reveals 3+ leukocyte esterase, wbc's 21-50, and urine bacteria 4+. -vasopressor support for central line that was placed per ED provider. -she received 3 L of IV bolus in the emergency room. 02/13: Lezama chronic, but per pt, not meant to be retirement. -Recs from ID to d/c lezama, D/C today. -Of note, pt with sx of urinary frequency prior to ED. States that she knows when she has a UTI and she no longer has any sx. -Last day of abx tomorrow with probable discharge home with HH. Monitor labs x1 more day. (3) Muscle spasticity: Code(s): M62.838 - Other muscle spasm Status: Acute Assessment and Plan: -home meds are on hold at this time. Baclofen is on hold. She does have lidocaine patches. -she will require PT OT evaluation when she is out of ICU. 02/13: Discharged from therapy, will go home with HH Plan D/C lezama today, watch output, labs, and sx overnight Time Spent With Patient Time: 45 Subjective Date/time seen: 02/13/25 1157 Interval history: Pt sitting up in chair comfortably upon my arrival. Pt reports her chronic pain that is all over her body, states is stable on her current regimen of pain medication that she takes at home. Pt states that she had a lezama at home prior to this arrival, but, it is not supposed to be retirement; she reports that she has regained sensory to her perineum region and prior to the lezama, was able to void via bedpan at home. Will D/C lezama today. Pt denies any sx today including CP and SOB. +dry cough, lungs clear. Review of Systems Review of Systems: All systems reviewed & are unremarkable except as noted in HPI and below (Subjective) Constitutional: Constitutional: Reports as per HPI and Reports no additional constitutional complaints Eyes: Eyes: Reports as per HPI and Reports no additional eye complaints ENT: Reports system reviewed and no additional complaints, except as documented and Reports Normal hearing present Cardiovascular: Cardiovascular: Reports no additional cardiovascular complaints Respiratory: Respiratory: Reports as per HPI and Reports no additional respiratory complaints Gastrointestinal: Gastrointestinal: Reports as per HPI and Reports no additional gastrointestinal complaints Genitourinary: Genitourinary: Reports no additional female genitourinary complaints Musculoskeletal: Musculoskeletal: Reports no additional musculoskeletal complaints Integumentary/Breasts: Skin/Breast: Reports system reviewed and no additional complaints, except as docu Neurologic: Reports system reviewed and no additional complaints, except as documented and Reports Normal hearing present Psychiatric: Psychiatric: Reports no additional psychiatric complaints and Reports as per HPI Hematologic/Lymphatic: Hematologic/Lymphatic: Reports no additional hematologic/lymphatic complaints Allergic/Immunologic: Allergic/Immunologic: Reports no additional allergic/immunologic complaints Exam Narrative: General: Pt is alert awake and in NAD, appears older than stated age. HEENT: Pupils equal and reactive, sclera is clear, poor dentition, almost edentulous Tenderness to palpation at cervical thoracic spine, reports is chronic for her Lungs/Chest: Trachea central Clear BS B/L, No crackles or wheezing. Cardiac: RRR. Normal S1 S2. No murmurs Circulation: Pedal pulses are intact and symmetrical. Abdomen: Normal bowel sounds.. Soft. NT. ND. Extremities: Bilateral edema present, dry skin, bilateral knees are swollen. Scar from past surgeries on both knees. No redness or tenderness in the knees. : Lezama in place which is draining urine, to D/C today Neurologic: AO x3 PERRL, she is able to move toes on both feet and her touch sensation intact. She can follow commands with both upper extremities. R>L strength, states L shoulder is weak which is baseline Skin: No Rash Objective Data Vital Signs Vital Signs: Vital Signs - 24 hr 02/12/25 16:00 02/12/25 16:00 02/12/25 20:00 Temperature 97.6 F Pulse Rate 54 L 78 69 Respiratory Rate 16 Blood Pressure 142/81 H Pulse Oximetry 100 Oxygen Delivery 02/12/25 20:41 02/12/25 21:20 02/13/25 00:00 Temperature 97.7 F Pulse Rate 69 54 L Respiratory Rate 18 Blood Pressure 106/57 L Pulse Oximetry 100 Oxygen Delivery Room Air 02/13/25 04:00 02/13/25 04:34 02/13/25 08:00 Temperature 97.9 F Pulse Rate 55 L 62 48 L Respiratory Rate 20 Blood Pressure 113/72 Pulse Oximetry 100 Oxygen Delivery 02/13/25 08:55 02/13/25 12:00 Temperature Pulse Rate 67 Respiratory Rate Blood Pressure Pulse Oximetry Oxygen Delivery Room Air Intake/Output Intake/Output: Intake & Output 02/10/25 02/11/25 02/12/25 02/13/25 23:59 23:59 23:59 23:59 Intake Total 2606 2623.4 1526.7 540 Output Total 2850 3500 2600 1500 Balance -244 -876.6 -1073.3 -960 Meds/Results Medications: Active Medications Generic Name Dose Route Start Last Admin Trade Name Freq PRN Reason Stop Dose Admin Acetaminophen 650 mg 02/08/25 12:13 02/10/25 12:16 Acetaminophen 325 Mg Tablet PO 650 mg Q4H PRN Administration Mild Pain (1-3) or Fever Baclofen 10 mg 02/07/25 22:00 02/13/25 14:10 Baclofen 10 Mg Tablet PO 10 mg Q8HR MATTHEW Administration Enoxaparin Sodium 40 mg 02/07/25 09:00 02/13/25 08:55 Enoxaparin 40 Mg/0.4 Ml Syringe SUB-Q 40 mg DAILY MATTHEW Administration Gabapentin 800 mg 02/07/25 09:00 02/13/25 14:10 Gabapentin 400 Mg Capsule PO 800 mg Q8HR MATTHEW Administration Lidocaine 2 patch 02/07/25 09:00 02/13/25 08:54 Lidocaine 5% Patch TRANSDERM 2 patch QAM MATTHEW Administration Oxycodone HCl 10 mg 02/12/25 21:00 02/13/25 08:54 Oxycodone Hcl (*Crx) 10 Mg Tab Sr 12hr PO 10 mg Q12HR MATTHEW Administration Oxycodone HCl 5 mg 02/12/25 15:38 02/13/25 14:10 Oxycodone Hcl (*Crx) 5 Mg Tab Ir PO 5 mg Q6H PRN Administration Breakthrough Pain Polyethylene Glycol 17 gm 02/10/25 09:00 02/13/25 08:50 Polyethylene Glycol 3350 17 Gm Powd.Pack PO Not Given QAM MATTHEW Senna/Docusate Sodium 1 tab 02/09/25 21:00 02/12/25 21:33 Senna/Docusate Sodium Tablet PO Not Given HS MATTHEW Trimethoprim/Sulfamethoxazole 2 tab 02/12/25 21:00 02/13/25 08:54 Sulfamethoxazole/Trimethoprim 800/160 Mg Ds Tablet PO 2 tab Q12HR MATTHEW Administration Radiology Results: ITS Impressions Chest/Abdomen/Pelvis CT 02/07/25 07:15 IMPRESSION: 1. Mild right hydroureter and mild left hydronephrosis and hydroureter with bilateral urothelial enhancement, consistent with bilateral pyelitis. 2. Gallbladder distention, which may be secondary to fasting. Correlate with physical exam to exclude acute cholecystitis. 3. 3.5 cm left adrenal mass. 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 4. 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 Chest X-Ray 02/08/25 10:45 IMPRESSION: 1. Mild bibasilar atelectasis. Cervical Spine CT 02/10/25 19:07 Impression: Postsurgical changes detailed above. There is no gross osseous destruction to suggest acute osteomyelitis, there is sclerosis of the vertebral bodies of C6 and C7, chronic osteomyelitis is not excluded. Contrast-enhanced MRI is recommended Thoracic/Lumbar Spine CT 02/10/25 19:17 Impression: 1. No evidence of osteomyelitis. There remains clinical concern contrast-enhanced MRI is recommended. 2. Incidental findings above Cervical Spine MRI 02/11/25 14:51 IMPRESSION: 1. Increased cord signal centered at C6-C7 which suggests sequela of either prior trauma or central canal stenosis given the anterior spinal fusion with suggestion of some prior anterior vertebral body height loss at C6 and the prior lower cervical posterior decompression with C5-C7 laminectomies. 2. Otherwise mild cervical spondylosis. No abscess, osteomyelitis or other findings to suggest infection. Lumbar Spine MRI 02/11/25 14:57 IMPRESSION: 1. Severe degenerative changes in the lower lumbar spine with multilevel spinal canal stenosis at L3-4, L4-5 and L5-S1; stenosis is most severe at L3-4 as detailed above. 2. A 5 x 4 mm possible tiny peripherally enhancing fluid collection along the posterior margin of L4 at the distal margin of the extruded disc at the L3-4 level likely reactive inflammatory change but tiny developing infection or abscess is not excluded. Correlate with C-reactive protein and white count. Follow-up lumbar spine MRI as clinically appropriate if patient is managed conservatively. 3. No other suspiciously enhancing lesions or masses. No abscess or abnormal fluid collection. Thoracic Spine MRI 02/11/25 15:26 IMPRESSION: 1. No evidence of osteomyelitis, discitis or abscess. No suspicious enhancing lesions seen within the vertebral column or the spinal cord. 2. Moderate to large central disc protrusions at T7-T8 and T11-12. Abdomen MRI 02/12/25 13:53 IMPRESSION: 1. 3.0 x 2.6 cm left adrenal adenoma. 2. Hepatosplenomegaly which may be related to body habitus. 3. Cholelithiasis. 4. Small bilateral posterior layering pleural effusions. Labs Labs: Laboratory Results - last 24 hr 02/13/25 03:59 WBC 5.0 RBC 3.09 L Hgb 8.8 L Hct 28.1 L MCV 90.9 MCH 28.5 MCHC 31.3 L RDW 14.6 H Plt Count 174 MPV 8.3 Immature Gran % (Auto) 1.4 H Neut % (Auto) 45.4 L Lymph % (Auto) 39.2 [place] % (Auto) 6.8 Eos % (Auto) 6.6 H Baso % (Auto) 0.6 Lymph # (Auto) 1.95 [place] # (Auto) 0.3 Eos # (Auto) 0.3 Baso # (Auto) 0.0 Abs Immat Gran (auto) 0.07 H Absolute Neuts (auto) 2.3 Absolute Nucleated RBC 0.000 Nucleated RBC % 0.0 Sodium 136 L Potassium 4.7 Chloride 107 Carbon Dioxide 25 Anion Gap 4 BUN 11 Creatinine 0.49 L Estim Creat Clear Calc 138 Estimated GFR > 60 Glucose 81 Calcium 8.3 L Magnesium 2.2 Quality VTE Prophylaxis VTE prophylaxis: mechanical ordered
[2025-02-14] VITALS: PULSE 56
[2025-02-14 04:00] VITALS: PULSE 60
[2025-02-14 04:22] LABS: Hematocrit 27.5 % (37.0-47.0); Hemoglobin 8.5 g/dL (12.0-15.0); Immature Granulocyte Percent A 1.5 % (0-0.5); Lymphocytes Absolute Auto 2.08 K/mm3 (0.9-3.2); Mean Corpuscular HGB Conc 30.9 g/dl (32-36); Mean Corpuscular Hemoglobin 28.1 pg (26-34); Mean Corpuscular Volume 90.8 fl (80-100); Nucleated Red Blood Cells Absolute Auto 0.000 K/mm3 (0.0-0.012); Nucleated Red Blood Cells Perc 0.0 % (0.0-0.2); Platelet Count Result 209 k/mm3 (150-375); Red Blood Count 3.03 M/mm3 (4.2-5.4); White Blood Count 5.2 K/mm3 (4.5-10.0)
[2025-02-14 04:35] LABS: Alanine Aminotransferase 14 U/L (6-35); Albumin Level 3.4 g/dL (3.5-5.1); Alkaline Phosphatase 91 U/L (38-126); Anion Gap 5 mmol/L (4-12); Aspartate Amino Transferase 24 U/L (14-36); Bilirubin,Total 0.4 mg/dL (0.2-1.3); Blood Urea Nitrogen 12 mg/dL (7-17); Calcium 8.2 mg/dL (8.4-10.2); Carbon Dioxide 24 mmol/L (22-30); Chloride 107 mmol/L (98-107); Estimated CRCL calculation 112 ml/min; Estimated Glomerular Filt Rate > 60; Glucose 83 mg/dL (65-110); Potassium 4.9 mmol/L (3.4-5.0); Sodium 136 mmol/L (137-145); Total Protein 6.8 g/dL (6.3-8.2)
[2025-02-14 04:50] VITALS: BP 103/55; PULSE 61; RESP 18; TEMP 36.6; O2SAT 97
[2025-02-14] MEDS: oxyCODONE HCL (*CRX) 5 MG TAB IR PO ×2 (05:17→11:26)
[2025-02-14] MEDS: BACLOFEN 10 MG TABLET PO ×2 (05:18→14:02)
[2025-02-14] MEDS: GABAPENTIN 400 MG CAPSULE 800 MG PO ×2 (05:18→14:02)
[2025-02-14] MEDS: oxyCODONE HCL (*CRX) 10 MG TAB SR 12HR PO (08:43)
[2025-02-14] MEDS: SULFAMETHOXAZOLE/TRIMETHOPRIM 800/160 MG DS TABLET 2 TAB PO (08:43)
[2025-02-14] MEDS: LIDOCAINE 5% PATCH 2 PATCH TRANSDERM (08:44)
[2025-02-14] MEDS: ENOXAPARIN 40 MG/0.4 ML SYRINGE SUB-Q (08:44)
--- NOTE | 2025-02-14 10:28 | P.PNINF_ITS ---
Progress Note: A&P Assessment and Plan (1) Chronic indwelling Ng catheter: Code(s): Z97.8 - Presence of other specified devices Status: Acute (2) Paraplegia: Code(s): G82.20 - Paraplegia, unspecified Status: Acute (3) UTI (urinary tract infection): Code(s): N39.0 - Urinary tract infection, site not specified Status: Acute (4) E. coli UTI: Code(s): N39.0 - Urinary tract infection, site not specified; B96.20 - Unspecified Escherichia coli [E. coli] as the cause of diseases classified elsewhere Status: Acute (5) E coli bacteremia: Code(s): R78.81 - Bacteremia; B96.20 - Unspecified Escherichia coli [E. coli] as the cause of diseases classified elsewhere Status: Acute (6) Septic shock: Code(s): A41.9 - Sepsis, unspecified organism; R65.21 - Severe sepsis with septic shock Status: Acute Plan Impression: 1. Complicated E coli UTI, CAUTI, with E coli bacteremia. 2. Acute sepsis with shock on presentation, overall resolved 3. Post admission persistence of intermittent daily fever despite appropriate antibiotics, now resolved. -- no clinical evidence of pneumonia. -- no rash but would still consider the possibility of penicillin -associated febrile reaction. Leukopenia may also be associated with drug reaction. -- history of cervical laminectomies and recent cervical osteomyelitis status post extended IV antibiotics. Currently with MRI evidence of residual change but doubt active cervical infection at this time. -- minimal collection of reactive fluid noted and area of L3-L4 disc protrusion. Doubt true abscess. 4. Repeat blood cultures negative in 02/09 blood culture x2 sets; positive for staph coccus hominis in 1/4 bottles 02/10. This would be consistent with contamination. of a 5. History of paraplegia. 6. History of hive allergy to penicillin. Plan: -- to avoid the possibility of penicillin -associated agents triggering a drug reaction including fever and leukopenia have changed meropenem Bactrim which will provide continued coverage for complicated UTI with bacteremia. currently receiving Bactrim oral 2 double strength twice daily. however, consider today day 7 of 7 appropriate antibiotics. -- 02/10 blood cultures consistent with contamination and do not require treatment. -- okay for discharge from an infectious disease standpoint. Patient was seen via video telehealth consultation with the assistance of staff. Chart, data, and patient independently reviewed. Patient was located at [facility] while I was located in my [place] office. Received verbal consent from patient. Subjective Date/time seen: 02/14/25 10:28 Interval history: 02/12/2025: Afebrile stable vital signs. Has been afebrile since 02/08. White blood cell count now 4.4. States that she is feeling better. Still maintaining a Ng catheter. 02/13/2025: Afebrile with white blood cell count 5.0. May be developing some diarrhea. MRI of the abdomen suggest adrenal adenoma as well as hepatic splenomegaly. 02/14/2025: Afebrile with stable vital signs and white count 5.2. Due to straight cath requirements her Ng catheter has been replaced. Blood cultures 02/10: 1/4 bottles positive for Staphylococcus hominis consistent with contamination. Blood cultures 02/09: negative at 48 hours. Review of Systems Review of Systems: All systems reviewed & are unremarkable except as noted in HPI and below Exam Narrative: Awake, alert. Continues to state she is feeling better. No respiratory difficulty. No shortness of breath or significant cough. No abdominal distention. Ng catheter back in place. No evidence of rash. Objective Data Vital Signs Vital Signs: Vital Signs - 24 hr 02/13/25 12:00 02/13/25 14:00 02/13/25 16:00 Temperature 97.8 F Pulse Rate 67 65 65 Respiratory Rate 16 Blood Pressure 143/76 H Pulse Oximetry 96 Oxygen Delivery 02/13/25 20:00 02/13/25 20:06 02/13/25 21:08 Temperature 98.0 F Pulse Rate 73 74 Respiratory Rate 18 Blood Pressure 103/57 L Pulse Oximetry 100 Oxygen Delivery Room Air 02/14/25 00:00 02/14/25 04:00 02/14/25 04:50 Temperature 97.8 F Pulse Rate 56 L 60 61 Respiratory Rate 18 Blood Pressure 103/55 L Pulse Oximetry 97 Oxygen Delivery 02/14/25 08:40 Temperature Pulse Rate Respiratory Rate Blood Pressure Pulse Oximetry Oxygen Delivery Room Air Intake/Output Intake/Output: Intake & Output 02/11/25 02/12/25 02/13/25 02/14/25 23:59 23:59 23:59 23:59 Intake Total 2623.4 1526.7 2020 340 Output Total 3500 2600 4300 1600 [facility] -876.6 -1073.3 -2280 -1680 Meds/Results Medications: Active Medications Generic Name Dose Route Start Last Admin Trade Name Freq PRN Reason Stop Dose Admin Acetaminophen 650 mg 02/08/25 12:13 02/10/25 12:16 Acetaminophen 325 Mg Tablet PO 650 mg Q4H PRN Administration Mild Pain (1-3) or Fever Baclofen 10 mg 02/07/25 22:00 02/14/25 05:18 Baclofen 10 Mg Tablet PO 10 mg Q8HR MATTHEW Administration Enoxaparin Sodium 40 mg 02/07/25 09:00 02/14/25 08:44 Enoxaparin 40 Mg/0.4 Ml Syringe SUB-Q 40 mg DAILY MATTHEW Administration Gabapentin 800 mg 02/07/25 09:00 02/14/25 05:18 Gabapentin 400 Mg Capsule PO 800 mg Q8HR MATTHEW Administration Lidocaine 2 patch 02/07/25 09:00 02/14/25 08:44 Lidocaine 5% Patch TRANSDERM 2 patch QAM MATTHEW Administration Oxycodone HCl 10 mg 02/12/25 21:00 02/14/25 08:43 Oxycodone Hcl (*Crx) 10 Mg Tab Sr 12hr PO 10 mg Q12HR MATTHEW Administration Oxycodone HCl 5 mg 02/12/25 15:38 02/14/25 05:17 Oxycodone Hcl (*Crx) 5 Mg Tab Ir PO 5 mg Q6H PRN Administration Breakthrough Pain Polyethylene Glycol 17 gm 02/10/25 09:00 02/14/25 08:40 Polyethylene Glycol 3350 17 Gm Powd.Pack PO Not Given QAM MATTHEW Senna/Docusate Sodium 1 tab 02/09/25 21:00 02/13/25 21:19 Senna/Docusate Sodium Tablet PO Not Given HS MATTHEW Trimethoprim/Sulfamethoxazole 2 tab 02/12/25 21:00 02/14/25 08:43 Sulfamethoxazole/Trimethoprim 800/160 Mg Ds Tablet PO 2 tab Q12HR MATTHEW Administration Radiology Results: ITS Impressions Chest/Abdomen/Pelvis CT 02/07/25 07:15 IMPRESSION: 1. Mild right hydroureter and mild left hydronephrosis and hydroureter with bilateral urothelial enhancement, consistent with bilateral pyelitis. 2. Gallbladder distention, which may be secondary to fasting. Correlate with physical exam to exclude acute cholecystitis. 3. 3.5 cm left adrenal mass. 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 4. 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 Chest X-Ray 02/08/25 10:45 IMPRESSION: 1. Mild bibasilar atelectasis. Cervical Spine CT 02/10/25 19:07 Impression: Postsurgical changes detailed above. There is no gross osseous destruction to suggest acute osteomyelitis, there is sclerosis of the vertebral bodies of C6 and C7, chronic osteomyelitis is not excluded. Contrast-enhanced MRI is recommended Thoracic/Lumbar Spine CT 02/10/25 19:17 Impression: 1. No evidence of osteomyelitis. There remains clinical concern contrast- enhanced MRI is recommended. 2. Incidental findings above Cervical Spine MRI 02/11/25 14:51 IMPRESSION: 1. Increased cord signal centered at C6-C7 which suggests sequela of either prior trauma or central canal stenosis given the anterior spinal fusion with suggestion of some prior anterior vertebral body height loss at C6 and the prior lower cervical posterior decompression with C5-C7 laminectomies. 2. Otherwise mild cervical spondylosis. No abscess, osteomyelitis or other findings to suggest infection. Lumbar Spine MRI 02/11/25 14:57 IMPRESSION: 1. Severe degenerative changes in the lower lumbar spine with multilevel spinal canal stenosis at L3-4, L4-5 and L5-S1; stenosis is most severe at L3-4 as detailed above. 2. A 5 x 4 mm possible tiny peripherally enhancing fluid collection along the posterior margin of L4 at the distal margin of the extruded disc at the L3-4 level likely reactive inflammatory change but tiny developing infection or abscess is not excluded. Correlate with C-reactive protein and white count. Follow-up lumbar spine MRI as clinically appropriate if patient is managed conservatively. 3. No other suspiciously enhancing lesions or masses. No abscess or abnormal fluid collection. Thoracic Spine MRI 02/11/25 15:26 IMPRESSION: 1. No evidence of osteomyelitis, discitis or abscess. No suspicious enhancing lesions seen within the vertebral column or the spinal cord. 2. Moderate to large central disc protrusions at T7-T8 and T11-12. Abdomen MRI 02/12/25 13:53 IMPRESSION: 1. 3.0 x 2.6 cm left adrenal adenoma. 2. Hepatosplenomegaly which may be related to body habitus. 3. Cholelithiasis. 4. Small bilateral posterior layering pleural effusions. Labs Labs: Laboratory Results - last 24 hr 02/14/25 04:06 WBC 5.2 RBC 3.03 L Hgb 8.5 L Hct 27.5 L MCV 90.8 MCH 28.1 MCHC 30.9 L RDW 14.8 H Plt Count 209 MPV 8.4 Immature Gran % (Auto) 1.5 H Neut % (Auto) 43.5 L Lymph % (Auto) 40.2 [place] % (Auto) 7.0 Eos % (Auto) 7.2 H Baso % (Auto) 0.6 Lymph # (Auto) 2.08 [place] # (Auto) 0.4 Eos # (Auto) 0.4 H Baso # (Auto) 0.0 Abs Immat Gran (auto) 0.08 H Absolute Neuts (auto) 2.3 Absolute Nucleated RBC 0.000 Nucleated RBC % 0.0 Sodium 136 L Potassium 4.9 Chloride 107 Carbon Dioxide 24 Anion Gap 5 BUN 12 Creatinine 0.62 L Estim Creat Clear Calc 112 Estimated GFR > 60 Glucose 83 Calcium 8.2 L Total Bilirubin 0.4 AST 24 ALT 14 Alkaline Phosphatase 91 Total Protein 6.8 Albumin 3.4 L
--- NOTE | 2025-02-14 11:50 | PM.DS ---
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 The patient denied having any UTIs prior to the chronic indwelling Lezama catheter. -the patient became hypotensive and had tachycardia. She stated that her temperature was over 102 at home. -the the motor patrol operator has been notified per ED provider. -the patient was started on meropenem pending cultures. -continue to manage her lactic levels. -urinalysis reveals 3+ leukocyte esterase, wbc's 21-50, and urine bacteria 4+. -vasopressor support for central line that was placed per ED provider. -she received 3 L of IV bolus in the emergency room. 02/13: Resolved. Pt no longer has CVC, on med surg unit. VSS. Labs stable, will continue to trend. 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 The patient denied having any UTIs prior to the chronic indwelling Lezama catheter. -the patient became hypotensive and had tachycardia. She stated that her temperature was over 102 at home. -the the motor patrol operator has been notified per ED provider. -the patient was started on meropenem pending cultures. -continue to manage her lactic levels. -urinalysis reveals 3+ leukocyte esterase, wbc's 21-50, and urine bacteria 4+. -vasopressor support for central line that was placed per ED provider. -she received 3 L of IV bolus in the emergency room. 02/13: Lezama chronic, but per pt, not meant to be [facility]. -Recs from ID to d/c lezama, D/C today. -Of note, pt with sx of urinary frequency prior to ED. States that she knows when she has a UTI and she no longer has any sx. -Last day of abx tomorrow with probable discharge home with HH. Monitor labs x1 more day. 02/14: Lezama removed yesterday, has failed void trial twice since. Lezama replaced today for discharge. Will continue with HH and PCP maintenance. -Sent home with x1 more dose of abx at discharge today (3) Muscle spasticity: Code(s): M62.838 - Other muscle spasm Status: Acute Assessment and Plan: -home meds are on hold at this time. Baclofen is on hold. She does have lidocaine patches. -she will require PT OT evaluation when she is out of ICU. 02/13: Discharged from therapy, will go home with HH (4) Paraplegia: Code(s): G82.20 - Paraplegia, unspecified Status: Acute Assessment and Plan: PT/OT while inpt. (5) Chronic indwelling Lezama catheter: Code(s): Z97.8 - Presence of other specified devices Status: Acute Assessment and Plan: See above. (6) Arthritis of left knee: Code(s): M17.12 - Unilateral primary osteoarthritis, left knee Status: Acute Assessment and Plan: Continue with pain regimen, cleared by ortho for acute infection. Plan Discharge today with HH. F/u with PCP. DS: Summary Hospital Course Reason for hospitalization: Abd pain, sepsis, lezama issue Hospital Course: The patient is a 50-year-old female with a history of paraplegia secondary to cervical spine surgery, chronic indwelling Lezama catheter, and prior cervical osteomyelitis, who presented with fever, hypotension, and decreased Lezama catheter output. On admission, she was found to be in septic shock with evidence of a complicated urinary tract infection (UTI) and E. coli bacteremia. Initial management included aggressive intravenous fluid resuscitation, vasopressor support with norepinephrine, and empiric broad-spectrum antibiotics (ceftriaxone, later escalated to meropenem due to severity and pending cultures). Blood and urine cultures subsequently grew cespedes-sensitive E. coli. Imaging revealed bilateral pyelitis, mild hydronephrosis, and chronic changes in the spine without evidence of acute osteomyelitis or abscess. During her ICU stay, the patient required close hemodynamic monitoring and supportive care. Her Lezama catheter was replaced, and she received a full course of IV antibiotics. Despite appropriate therapy, she experienced intermittent fevers and developed leukopenia, raising concern for a possible drug reaction. Infectious Diseases was consulted, and meropenem was discontinued in favor of oral trimethoprim-sulfamethoxazole (Bactrim) to complete a 7-day course, with subsequent resolution of fever and normalization of her white blood cell count. Repeat blood cultures were negative except for a single bottle positive for Staphylococcus hominis, felt to be a contaminant. The patient?s hospital course was further complicated by chronic pain, bilateral lower extremity edema, and anemia, but she remained hemodynamically stable after initial resuscitation. She was transitioned off vasopressors, her central line was removed, and she was transferred from the ICU to the medical-surgical unit. Physical and occupational therapy were consulted for ongoing management of paraplegia and muscle spasticity. Her chronic pain regimen was optimized, and she was able to resume her home medications. The Lezama catheter was discontinued per Infectious Diseases recommendations, and she was monitored for adequate urinary output and signs of recurrent infection. She remained afebrile with stable vital signs and improving laboratory parameters. Imaging during her admission also identified a left adrenal adenoma, hepatosplenomegaly, and cholelithiasis, none of which required acute intervention. By discharge, the patient was afebrile, hemodynamically stable, and tolerating oral intake. She completed her antibiotic course, and her Lezama catheter was replaced due to multiple failed void trials, she will f/u with her HH and PCP for management. She was discharged home with home health services for continued rehabilitation and monitoring. Pt also sent home with a minimal amount of oxycodone for pain control. Status at Discharge Overall status at discharge: patient is back to baseline Time Spent with Patient Time attestation: Total time spent providing and/or coordinating discharge services: 45 Exam Narrative: General: Pt is alert awake and in NAD, appears older than stated age. HEENT: Pupils equal and reactive, sclera is clear, poor dentition, almost edentulous Tenderness to palpation at cervical thoracic spine, reports is chronic for her Lungs/Chest: Trachea central Clear BS B/L, No crackles or wheezing. Cardiac: RRR. Normal S1 S2. No murmurs Circulation: Pedal pulses are intact and symmetrical. Abdomen: Normal bowel sounds.. Soft. NT. ND. Extremities: Bilateral edema present, dry skin, bilateral knees are swollen. Scar from past surgeries on both knees. No redness or tenderness in the knees. : Lezama in place which is draining urine, to D/C today Neurologic: AO x3 PERRL, she is able to move toes on both feet and her touch sensation intact. She can follow commands with both upper extremities. R>L strength, states L shoulder is weak which is baseline Skin: No Rash Const: General: cooperative, comfortable, no acute distress, well developed, awake, well nourished and obese Nutritional Appearance: well nourished and obese Orientation/consciousness: oriented to person, oriented to place, oriented to time and patient oriented x3 Limitations: no limitations Other: A&O x4 HENMT: Head: normal to inspection, No palpable skull fracture present, normocephalic, atraumatic and abrasion Mouth: Yes moist mucous membranes Eyes: General: appearance normal, both eyes and all related structures Alignment and Position: alignment normal Periorbital: periorbital findings normal Pupils: Equal, round and reactive pupils present Neck: Neck: normal visual inspection, full ROM, no lymphadenopathy and supple Chest: Chest palpation & inspection: normal inspection of the chest Resp: Effort & Inspection: normal respiratory effort Auscultation: clear to auscultation bilaterally Cardio: Palpation: normal PMI Rate: regular rate Rhythm: regular rhythm Heart sounds: S1 normal heart sound present and S2 normal heart sound present Peripheral pulses: Peripheral pulses 2+ throughout GI: Inspection: normal to inspection Auscultation: normal bowel sounds : General: Yes no CVA tenderness Urinary Catheter: Urinary Catheter: other (Not currently placed during my rounds, to be placed with appropriate drainage documented prior to discharge) Back/Spine/Pelvis: Back: no CVA tenderness Skin: General skin exam: normal color Lesions: no lesions Rashes: no rashes Trauma: no lacerations or abrasions Wounds: no wounds Hair: normal Nails: normal Other: Dry skin to bilateral lower extremities Neuro: General: oriented to person, oriented to place, oriented to time and patient oriented x3 Cranial nerves: Yes Equal, round and reactive pupils present and Yes Normal hearing present Other: Able to wiggle toes. Right upper extremity 3/5 strength on lateral extension of shoulder, left upper extremity 2/5 strength Extrem: General: normal to inspection and no edema Right upper extremity: normal to inspection and shoulder/upper arm Left upper extremity: normal to inspection Right lower extremity: normal to inspection Left lower extremity: normal to inspection Psych: Appearance: grossly normal Mental Status: mental status grossly normal Speech and movement: Normal speech and movement present Affect: normal affect Attitude: cooperative Thought process: Normal thought process present Insight: Good insight present (Psych) Judgement: Good judgement present (Psych) DS: Data Data Completed and Pending Completed studies during hospitalization: Labs, urine, imaging Labs on day of discharge: Labs from last 24 hours 02/14/25 04:06 WBC 5.2 RBC 3.03 L Hgb 8.5 L Hct 27.5 L MCV 90.8 MCH 28.1 MCHC 30.9 L RDW 14.8 H Plt Count 209 MPV 8.4 Immature Gran % (Auto) 1.5 H Neut % (Auto) 43.5 L Lymph % (Auto) 40.2 Esmeralda % (Auto) 7.0 Eos % (Auto) 7.2 H Baso % (Auto) 0.6 Lymph # (Auto) 2.08 Esmeralda # (Auto) 0.4 Eos # (Auto) 0.4 H Baso # (Auto) 0.0 Abs Immat Gran (auto) 0.08 H Absolute Neuts (auto) 2.3 Absolute Nucleated RBC 0.000 Nucleated RBC % 0.0 Sodium 136 L Potassium 4.9 Chloride 107 Carbon Dioxide 24 Anion Gap 5 BUN 12 Creatinine 0.62 L Estim Creat Clear Calc 112 Estimated GFR > 60 Glucose 83 Calcium 8.2 L Total Bilirubin 0.4 AST 24 ALT 14 Alkaline Phosphatase 91 Total Protein 6.8 Albumin 3.4 L Preliminary micro results at discharge 02/10/25 17:07 Blood Culture - Preliminary Blood Staphylococcus hominis 02/10/25 17:14 Blood Culture - Preliminary Blood 02/09/25 09:41 Blood Culture - Preliminary Blood 02/09/25 10:16 Blood Culture - Preliminary Blood Discharge Plan Discharge Attending physician on discharge: Kaylie Mace Consulting providers: Neil Borges; Kavon Chapin; Vero Nunn; Zita Patel Discharging Clinician: Zita Patel Anticipated Discharge Date/Time: 02/14/25 15:00 Patient Disposition: Home with Home Health Service Activity: as tolerated Diet: regular Wound Care Instructions: follow printed instructions Discharge Instructions: Patient to discharge with [facility] ) for PT/ OT and care home services. Please fax discharge instructions and medication sheets to . I am writing you for your last dose of antibiotics that you will need to take tonight, pick this up at the pharmacy and make sure you eat something before you take it to avoid nausea. Apply Clear Antifungal barrier cream to maceration on sacrum and bilateral buttocks every 12 hours or as needed after bowel movement. Leave open to air. Daily wash ulcer on left posterior lower leg with soap and water, then apply a thin layer of Silver gel to wound, cover with a dry dressing Continue to check your blood pressure and blood sugar at home if applicable. Keep your scheduled appts with your primary care provider and any specialist that you may see. Return to the emergency department if you develop sudden shortness of breath, chest pain, a fever of greater than 101.5, or nausea, vomiting, abd pain, or diarrhea that does not go away. Follow-up with your primary care provider within 1-2 weeks, they will want to be updated on your inpatient stay in the hospital and continued urinary catheter use. Thank you for choosing [facility] for your healthcare needs. Patient Instructions: Antibiotic Form, Sepsis (GEN), Removal of a Central Line, PICC, or Midline Catheter (GEN), Catheter-associated Urinary Tract Infection (DC) Patient Language: Portuguese Stand Alone Forms: General Discharge Information Follow-up/Referrals: Dao Cabezas MD [Primary Care Provider, Hospitalist] - 2 Weeks Discharge Medications: New sulfamethoxazole-trimethoprim 800-160 mg Tablet 2 tab PO Q12HR Qty: 2 0RF oxycodone 5 mg Tablet 5 mg PO Q6H PRN (Reason: Breakthrough Pain) Qty: 6 0RF oxycodone [OxyContin] 10 mg Tablet,Oral Only,Ext.Rel.12 Hr 10 mg PO Q12HR Qty: 6 0RF Continued baclofen 10 mg tablet 10 mg PO Q8H gabapentin 400 mg capsule 800 mg PO Q8H lidocaine 5 % adhesive patch,medicated 2 patch transdermal Q12H Rx Instructions: to bilat shoulders Date of admission: 02/07/25 05:22 Primary Care Provider: Dao Cabezas Admitting Provider: Vero Nunn Attending physician on admission: Vero Nunn Condition: Stable Quality VTE Prophylaxis VTE prophylaxis: mechanical ordered Hospitalist MIPS Heart Failure (Exclusion) Patient has history of Heart Transplant or Left Ventricular Assistive Device?: No IF YES, STOP HERE Heart Failure (Qualifier) Patient has current or prior documentation of LVEF less than or equal to 40%, or mod/servere depressed LVSF?: No IF NO, STOP HERE
[2025-02-14 12:00] VITALS: PULSE 61
[2025-02-14 14:00] VITALS: BP 99/49; PULSE 61; RESP 18; TEMP 36.4; O2SAT 99
== END 2025-02-14 17:45 | disposition home health service (06) | DRG 466 ==
LOC: ANHED 05:21 → ANHICU 15:12 → ANH2MED 02-13 07:13 → ANHICU 02-15 08:55
PROVIDERS: General Practice; Internal Medicine; Nurse Practitioner; Admitting Provider Internal Medicine; Emergency Provider Emergency Medicine; PCP Internal Medicine
DX: T83.511A Infection and inflammatory reaction due to indwelling urethral catheter, initial encounter (principal); A41.51 Sepsis due to Escherichia coli [E. coli]; R65.21 Severe sepsis with septic shock; N39.0 Urinary tract infection, site not specified; G82.20 Paraplegia, unspecified; M62.838 Other muscle spasm; G62.9 Polyneuropathy, unspecified; Z87.891 Personal history of nicotine dependence; I21.A1 Myocardial infarction type 2; M17.12 Unilateral primary osteoarthritis, left knee
CPT/HCPCS: 36415; 36556; 71045; 71260; 72126; 72129; 72132; 72156; 72157; 72158; 73562; 74177; 74183; 80048; 80053; 80202; 81001; 82607; 82728; 82746; 83540; 83550; 83605; 83735; 84100; 84145; 84484; 85025; 85027; 85610; 85730; 86140; 87040; 87086; 87186; 87637; 87641; 93005; 96361; 96365; 96375; 97112; 97161; 97165; 99285; A9270; A9577; C1751; C8929; J0696; J1171; J1650; J2185; J3373; J7120; P9045; Q9957; Q9967